=== PATIENT | male | born 1940 | race Caucasian/White ===

== ENCOUNTER 2018-02-10 20:11 | Emergency (ER) | payer OTHER ==
[2018-02-10 20:18] VITALS: BP 162/81
--- NOTE | 2018-02-10 21:08 | CONSULT ---
Consult Consult: Mr. Robles was not formally seen by me. I was shown his ecg which I read as NSR, No Acute Changes. I was informed that he wanted to leave since his ecg was nl. I spoke briefly with him and his . He was nontoxic in appearance and in no obvious distress. He reported chest pain and I recommended that he stay for a W/U as I could not make an educated opinion about his condition without further evaluation. I explained what the process was likely to entail. He elected to leave without being seen. I assured him that he was welcome to return at any time.
== END 2018-02-10 21:10 | disposition left against medical advice (07) ==
LOC: ED 20:11
DX: R07.89 Other chest pain (principal); Z53.21 Procedure and treatment not carried out due to patient leaving prior to being seen by health care provider
CPT/HCPCS: 93005; 99282

== ENCOUNTER 2018-02-14 17:32 | Inpatient (IN) | payer MEDICARE, OTHER ==
[2018-02-14] MEDS ORDERED: Aspirin 81 mg CHEW TAB* 81 MG TAB.CHEW PO ONE (17:47)
--- OUTSIDE RECORDS SUMMARY | 2018-02-14 18:12 | XMS REPORT | Continuity of Care Document ---
:1940 External Reference #:[id number] Author Name Bryan Tierney D.O. Address [address] [place] [id number] Care Team Providers Name Role Phone HCP given Primary Care Physician Unavailable Payers Type Date Identification Numbers Payment Provider Subscriber Policy Number: [id number] [employer] Reggie Robles PayID: [id number] [address] [place] [address] Policy Number: [id number] [facility] Reggie Robles PayID: [id number] [address] [place] [address] Advance Directives Description No Information Available Problems Description No Information Family History Description No Information Available Social History Type Date Description Comments Sex Unknown Marital Status Tobacco Use Start: Unknown End: Former Cigarette Smoker Quit smoking 30 years Unknown ago Allergies, Adverse Reactions, Alerts Description No Known Drug Allergies Medications Medication Date Status Form Strength Qnty SIG Indications Ordering Provider Betamethasone 02/11/ Active Ointment 0.1% Radha Whitt 2018 Raji Houser MD Aveeno 1% 02/11/ Active Unknown Hydrocrtisone 2018 Anti-Itch Cream Gold Tran 02/11/ Active 2x/day Unknown Eczema 2018 Relief-2% Colloidal Oatmeal Gold Tran 02/11/ Active Lotion daily Unknown Ultimate 2018 Healing Ibuprofen 02/08/ Active 200mg 1-2 tabs Unknown 2017 daily hs Tamsulosin HCL 02/08/ Active Capsules 0.4mg 1 by mouth Unknown 2017 every day hs Finasteride 02/08/ Active Tablets 5mg 1 by mouth Unknown 2017 every day hs Atorvastatin 02/08/ Active Tablets 20mg 90tabs 1 tablets by Kelsy Calcium 2017 mouth daily shelby Adams.O. prevention of heart attack and stroke at bedtime Fluocinonide 02/08/ Hx Cream 0.05% prn Unknown Emulsified Base 2017 - 2017 Clobetasol 02/08/ Hx apply to Unknown 2017 - legs 02/09/ arms/hands 2016 prn Hydroxyzine HCL Tablets 25mg prn for Unknown 2017 - itching 2017 Triamcinolone 02/08/ Hx Cream 0.1% prn to Unknown Acetonide 2017 - affected 02/13/ areas as 2018 needed for eczema Eucerine Hx apply body Unknown 2017 - lotion daily 2017 Dove Saop 02/08/ Hx for Unknown 2017 - showering 2017 Clobetasol 02/08/ Hx Cream 0.05% apply to Unknown Propionate 2017 - affected prn 2018 Immunizations CPT Code Status Date Vaccine Lot # [id number] Given 02/09/2017 Influenza Virus Vaccine, Quadrivalent, Split, [id number] Preservative Free [id number] Given 02/09/2017 Prevnar 13 [id number] Vital Signs Date Vital Result Comment 02/14/2018 4:17pm BP Systolic 144 mmHg BP Diastolic 70 mmHg Weight 203.00 lb 07/10/2017 1:36pm BP Systolic 120 mmHg BP Diastolic 70 mmHg Height 67.5 inches 5'7.50" Weight 209.00 lb BMI (Body Mass Index) 32.2 kg/m2 02/09/2017 1:10pm BP Systolic 138 mmHg BP Diastolic 70 mmHg Height 68.5 inches 5'8.50" with shoes Weight 211.00 lb with shoes BMI (Body Mass Index) 31.6 kg/m2 Results Test Date Facility Test Result H/L Range Note Laboratory test 02/05/2018 [facility] PSA Screening 9.094 ng/mL High 0-4.0 1 finding [phone] Laboratory test 01/16/2017 [facility] PSA Screening 5.509 ng/mL High 0-4.0 2 finding [phone] 1 Serum levels of PSA measured using the [employer] [employer] DXI Hybritech immunoassay should not be interpreted as absolute evidence of the presence or absence of disease. The PSA value should be used in conjunction with other pertinent clinical diagnostic procedures. The values obtained with different assay methods or kits cannot be used interchangeably. 2 Serum levels of PSA measured using the [employer] [place] DXI Hybritech immunoassay should not be interpreted as absolute evidence of the presence or absence of disease. The PSA value should be used in conjunction with other pertinent clinical diagnostic procedures. The values obtained with different assay methods or kits cannot be used interchangeably. Procedures Date Code Description Status 02/14/2018 39853 Electrocardiogram Complete Completed 12/15/2014 [id number] Colonoscopy Completed Encounters Type Date Location Provider Dx Diagnosis Office Visit 02/09/2017 Main Office Bryan Tierney, N40.0 Benign prostatic 12:55p D.O. hyperplasia without lower urinry tract symp F52.21 Male erectile disorder E78.00 Pure hypercholesterolemia, unspecified Z23 Encounter for immunization Z41.8 [facility] 02[facility]14/2018 - Bryan Tierney D.Rashida.R07.89 Other chest painComments:Called [facility] spoke with Saima and gave report of EKG changes and history of patient leaving on Monday. ASA 325mg was given as Reggie left the office.Follow up:Go to ER now for further evaluation of chest pain with changing EKG.R94.31 Abnormal electrocardiogram [ECG] [EKG]
--- OUTSIDE RECORDS SUMMARY | 2018-02-14 18:12 | XMS REPORT | Continuity of Care Document ---
:1940 External Reference #:[id number] Author Name Bell Cooper Care Team Providers Name Role Phone HCP given Primary Care Physician Unavailable Payers Type Date Identification Numbers Payment Provider Subscriber Policy Number: [id number] [employer] Reggie Robles PayID: [id number] [address] [place] [address] Policy Number: [id number] [facility] Reggie Robles PayID: [id number] [address] [place] [address] Advance Directives Description No Information Available Problems [...] Active Tablets 20mg 90tabs 1 tablets by Kelsy, Calcium 2017 mouth daily Bryan, for D.O. prevention of heart attack and stroke at bedtime Fluocinonide 02/08/ Hx Cream 0.05% prn Unknown Emulsified Base 2016 - 2017 Clobetasol 02/08/ Hx apply to [...] for Unknown 2017 - showering 2017 Clobetasol Hx Cream 0.05% apply to Unknown Propionate 2017 - affected 02/13/ areas prn 2018 Immunizations CPT Code Status Date Vaccine Lot # [id number] Given 02/09/2017 Influenza Virus Vaccine, Quadrivalent, Split, [id number] Preservative Free [id number] Given 02/09/2017 Prevnar 13 [id number] Vital Signs Date Vital Result Comment 02/14/2018 [...] Result H/L Range Note Laboratory test 02/05/2018 [facility] PSA Screening 9.094 ng/mL High 0-4.0 1 finding [phone] Laboratory test 01/16/2017 [facility] PSA Screening 5.509 ng/mL High 0-4.0 2 finding [phone] 1 Serum levels of PSA measured using the MyActivityPal DXI Hybritech immunoassay should not be interpreted as absolute evidence of the presence or absence of disease. The PSA value should be used in conjunction with other pertinent clinical diagnostic procedures. The values obtained with different assay methods or kits cannot be used interchangeably. 2 Serum levels of PSA measured using the [place] Med[employer] DXI Hybritech immunoassay should not be interpreted as absolute evidence of the presence or absence of disease. The PSA value should be used in conjunction with other pertinent clinical diagnostic procedures. The values obtained with different assay methods or kits cannot be used interchangeably. Procedures Date Code Description Status 02/14/2018 23923 Electrocardiogram Complete Completed 12/15/2014 [id number] Colonoscopy Completed Encounters Type Date Location Provider Dx Diagnosis Office Visit 02/14/2018 Main Office Bryan Tierney D.O. R07.89 Other chest pain 3:45p R94.31 Abnormal electrocardiogram [ECG] [EKG] Office Visit 02/09/2017 12:55p Main Office Bryan Tierney, N40.0 Benign prostatic D.O. hyperplasia without lower urinry tract symp F52.21 Male erectile disorder E78.00 Pure hypercholesterolemia, unspecified Z23 Encounter for immunization Z41.8 Encntr for oth proc for purpose oth [facility] Plan of Treatment 02/14/2018 - Bryan Tierney D.O.R07.89 Other chest painComments:Called [facility] spoke with Saima and gave report of EKG changes and history of patient leaving on Monday. ASA 325mg was given as Reggie left the office.Follow up:Go to ER now for further evaluation of chest pain with changing EKG.R94.31 Abnormal electrocardiogram [ECG] [EKG]
[2018-02-14 18:32] LABS: EGFR Non-African American 87.2 (>60)
[2018-02-14 18:41] LABS: Hematocrit 36 % (42-52); Hemoglobin 11.6 g/dl (14.0-18.0); Mean Corpuscular HGB Conc 32 g/dl (31-36); Mean Corpuscular Hemoglobin 26 pg (27-31); Mean Corpuscular Volume 81 fL (80-94); Mean Platelet Volume 8.6 fL (7.4-10.4); Platelet Count 240 10^3/ul (150-450); Red Blood Count 4.51 10^6/ul (4.00-5.40); Red Cell Distribution Width 15 % (10.5-15); White Blood Count 6.6 10^3/ul (3.5-10.8)
[2018-02-14 18:42] LABS: ABS Basophils 0 10^3/ul (0-0.2); ABS Eosinophils 0.1 10^3/ul (0-0.6); ABS Lymphocytes 0.9 10^3/ul (1.0-4.8); ABS Monocytes 0.6 10^3/ul (0-0.8); ABS Nucleated RBC 0 10^3/ul; Eosinophil % 1.1 %; Lymphocyte % 14.4 %; Nucleated Red Blood Cells % 0
--- NOTE | 2018-02-14 19:14 | ED ---
HPI Chest Pain - HPI Summary HPI Summary: A 77 y/o male accompanied by his presents to the ED c/o chest pain. In the ED room, the patient has a pulse of 69 BPM, O2 saturation of 99%, and blood pressure of 177/86. As per triage, "chets pains, tightness, left arm pain some SOB, dizziness". According to the patient, he had a appointment with his MD earlier today and was told to come here. An EKG was taken at his appointment this afternoon with Dr. Tierney and was advised to come to [facility]. He noted that the chest pain started last Monday (02/10/2018). He came to the ED that night around 2100 but it was packed. An EKG was taken in the waiting room and it was said that everything looked fine so he chose to leave and not have a full workup. The rest of the weekend, he experienced the pain. He further noted that he currently does not have the same pain as he did previously, it is to a milder extent, however, his pain settled down by Monday but he still is in discomfort and pain. Additional symptoms include weakness, fatigue, dizziness, but denies edema or SOB. He noted that he feels "wiped out" when he is walking from his house to his mailbox. No PMHx of heart issues. FHx of SD (father at 57 y/o). SHx of no smoking or ETOH. Patient is on several medications. Patient has a biopsy of his prostate on Monday morning. Patient has back issues as per and has been now bothering his stomach because of the Ibuprofen. - History of Current Complaint Chief Complaint: EDChestPainROMI Time Seen by Provider: 02/14/18 17:39 Hx Obtained From: Patient Onset/Duration: Started Days Ago, Still Present Timing: Constant Initial Severity: Mild Current Severity: Mild Pain Intensity: 2 Pain Scale Used: 0-10 Numeric Chest Pain Radiates: Yes Chest Pain Radiates To:: Arm Aggravating Factor(s): Nothing Alleviating Factor(s): Nothing Associated Signs and Symptoms: Positive: Chest Pain, Weakness, Dizziness. Negative: Shortness of Breath, Fever - Allergy/Home Medications Allergies/Adverse Reactions: Allergies Allergy/AdvReac Type Severity Reaction Status Date / Time No Known Allergies Allergy Verified 02/10/18 20:20 PMH/Surg Hx/FS Hx/Imm Hx Endocrine/Hematology History: Denies: Hx Diabetes Cardiovascular History: Denies: Hx Hypertension Sensory History: Reports: Hx Contacts or Glasses - READING GLASSES Denies: Hx Hearing Aid Opthamlomology History: Reports: Hx Contacts or Glasses - READING GLASSES - Surgical History Surgery Procedure, Year, and Place: LUMBAR FUSION 1999 [facility]. BILAT CATARACT 2010 [facility] Hx Anesthesia Reactions: No Infectious Disease History: No Infectious Disease History: Denies: Traveled Outside the [place] in Last 30 Days - Family History Known Family History: Positive: Other - SD (father at 57 y/o) - Social History Alcohol Use: None Substance Use Type: Reports: None Smoking Status (MU): Never Smoked Tobacco Review of Systems Positive: Fatigue. Negative: Fever Positive: Chest Pain Negative: Shortness Of Breath Negative: Edema Neurological: Other - POSITIVE: Dizziness Positive: Weakness All Other Systems Reviewed And Are Negative: Yes Physical Exam - Summary Physical Exam Summary: Appearance: Well-appearing, Well-nourished, lying in bed comfortably Skin: Warm, dry, no obvious rash Eyes: sclera anicteric, no conjunctival pallor ENT: mucous membranes moist, pharynx appears normal Neck: Supple, nontender Respiratory: Clear to auscultation, no signs of respiratory distress Cardiovascular: Normal S1, S2. No murmurs. Normal distal pulses in tibial and radial bilaterally. Abdomen: Soft, nontender, normal active bowel sounds present Musculoskeletal: Normal, Strength/ROM Intact Neurological: A&Ox3, awake and alert, mentation is normal, speech is fluent and appropriate Psychiatric: affect is normal, does not appear anxious or depressed Triage Information Reviewed: Yes Vital Signs On Initial Exam: Initial Vitals Temp Pulse Resp BP Pulse Ox 97.9 F 74 10 177/86 99 02/14/18 17:37 02/14/18 17:37 02/14/18 17:37 02/14/18 17:37 02/14/18 17:37 Vital Signs Reviewed: Yes Diagnostics - Vital Signs Vital Signs Temp Pulse Resp BP Pulse Ox 02/14/18 17:37 97.9 F 74 10 177/86 99 - Laboratory Lab Results: Lab Results 02/14/18 02/14/18 02/14/18 Range/Units 17:55 17:55 17:55 WBC 6.6 (3.5-10.8) 10^3/ul RBC 4.51 (4.00-5.40) 10^6/ul Hgb 11.6 L (14.0-18.0) g/dl Hct 36 L (42-52) % MCV 81 (80-94) fL MCH 26 L (27-31) pg MCHC 32 (31-36) g/dl RDW 15 (10.5-15) % Plt Count 240 (150-450) 10^3/ul MPV 8.6 (7.4-10.4) fL Neut % (Auto) 75.5 % Lymph % (Auto) 14.4 % Fannin % (Auto) 8.4 % Eos % (Auto) 1.1 % Baso % (Auto) 0.6 % Absolute Neuts (auto) 5.0 (1.5-7.7) 10^3/ul Absolute Lymphs (auto) 0.9 L (1.0-4.8) 10^3/ul Absolute Monos (auto) 0.6 (0-0.8) 10^3/ul Absolute Eos (auto) 0.1 (0-0.6) 10^3/ul Absolute Basos (auto) 0 (0-0.2) 10^3/ul Absolute Nucleated RBC 0 10^3/ul Nucleated RBC % 0 D-Dimer, Quantitative 352 H (Less Than 230) ng/mL Sodium 141 (135-145) mmol/L Potassium 4.4 (3.5-5.0) mmol/L Chloride 108 (101-111) mmol/L Carbon Dioxide 29 (22-32) mmol/L Anion Gap 4 (2-11) mmol/L BUN 21 (6-24) mg/dL Creatinine 0.85 (0.67-1.17) mg/dL Est GFR ( Amer) 105.5 (>60) Est GFR (Non-Af Amer) 87.2 (>60) BUN/Creatinine Ratio 24.7 H (8-20) Glucose 118 H (70-100) mg/dL Calcium 9.7 (8.6-10.3) mg/dL Total Bilirubin 0.40 (0.2-1.0) mg/dL AST 17 (13-39) U/L ALT 13 (7-52) U/L Alkaline Phosphatase 100 (34-104) U/L Troponin I 0.06 H* (<0.04) ng/mL Total Protein 7.4 (6.4-8.9) g/dL Albumin 4.0 (3.2-5.2) g/dL Globulin 3.4 (2-4) g/dL Albumin/Globulin Ratio 1.2 (1-3) Result Diagrams: 02/16/18 07:52 02/17/18 06:06 Lab Statement: Any lab studies that have been ordered have been reviewed, and results considered in the medical decision making process. - Radiology CXR Radiology Interpretation Completed By: ED Physician - No acute disease. Pending official report. - EKG 1738 Cardiac Rate: NL - 62 BPM EKG Rhythm: Sinus Rhythm Summary of EKG Findings: NSR at 62 BPM, P waves, QRS complex, and T waves are within normal limits, T waves and intervals are normal, no ischemic changes. This is a normal EKG Chest Pain Course/Dx - Course Course Of Treatment: A 77 y/o male accompanied by his presents to the ED c/ o chest pain. In the ED room, the patient has a pulse of 69 BPM, O2 saturation of 99%, and blood pressure of 177/86. According to the patient, he had a appointment with his MD earlier today and was told to come here. An EKG was taken at his appointment this afternoon with Dr. Tierney and was advised to come to [facility]. He noted that the chest pain started last Monday (02/10/2018) . He came to the ED that night around 2100 but it was packed. An EKG was taken in the waiting room and it was said that everything looked fine so he chose to leave and not have a full workup. The rest of the weekend, he experienced the pain. He further noted that he currently does not have the same pain as he did previously, it is to a milder extent, however, his pain settled down by Monday but he still is in discomfort and pain. Additional symptoms include weakness, fatigue, dizziness, but denies edema or SOB. He noted that he feels "wiped out" when he is walking from his house to his mailbox. Physical examination was unremarkable. A CXR revealed no acute disease. An EKG revealed NSR at 62 BPM, P waves, QRS complex, and T waves are within normal limits, T waves and intervals are normal, no ischemic changes. This is a normal EKG. Hematology was done. Labs significant for high D-dimer (352), high glucose (118), and high troponin ( 0.06). In the ED course, the patient received Tylenol, Aspirin, Maalox, Lipitor , Proscar, Heparin, Zofran and Flomax. Patient care was discussed with hospitalist, Dr. Jacquelyn Noble, who accepts patient for admission. Patient will be admitted with a diagnosis of chest pain. Patient is agreeable with this plan. - Diagnoses Provider Diagnoses: Chest pain - Provider Notifications Discussed Care Of Patient With: Jacquelyn Noble Time Discussed With Above Provider: 19:30 Instructed by Provider To: Other - Accepts patient for admission. Discharge - Sign-Out/Discharge Documenting (check all that apply): Patient Departure - ADMIT, Sign-Out Patient - RODO Signing out patient TO: Jacquelyn Noble Receiving patient FROM: Omer Solano - Discharge Plan Condition: Stable Disposition: ADMITTED TO [facility] - Billing Disposition and Condition Condition: STABLE Disposition: Admitted to [facility] - Attestation Statements Document Initiated by Carole: Yes Documenting Scribe: Randy Victor Provider For Whom Rayna is Documenting (Include Credential): Omer Solano MD Scribe Attestation: Randy Razo, scribed for Omer Solano MD on 02/18/18 at 1228. Scribe Documentation Reviewed: Yes Provider Attestation: The documentation as recorded by the Randy harvey accurately reflects the service I personally performed and the decisions made by me, Omer Solano MD Status of Scribe Document: Viewed
[2018-02-14] MEDS ORDERED: Al Hydrox/Mg Hydrox/Simet LIQ* 30 ML UDC PO PRN (19:53)
[2018-02-14] MEDS ORDERED: Acetaminophen TAB* 325 MG PO PRN (19:53)
[2018-02-14] MEDS ORDERED: Ondansetron INJ* 2 MG/ML VIAL IV PRN (19:53)
[2018-02-14] MEDS ORDERED: Atorvastatin* 20 MG TAB PO SCH (21:00)
[2018-02-14] MEDS: Finasteride TAB* 5 MG PO SCH (21:45)
[2018-02-14] MEDS: Tamsulosin CAP* 0.4 MG PO SCH (21:45)
[2018-02-14] MEDS: Heparin VIAL(*) 5000 UNITS/ML VIAL (FIVE THOUSAND) SUBCUT SCH (21:45)
--- NOTE | 2018-02-15 04:21 | HP ---
CC: Bryan Tierney DO * HISTORY AND PHYSICAL: DATE OF ADMISSION: 02/14/18 TIME OF EVALUATION: 1999. PRIMARY CARE PHYSICIAN: Bryan Tierney DO CHIEF COMPLAINT: Chest pain. HISTORY OF PRESENT ILLNESS: This is a 77-year-old male with past medical history of hyperlipidemia who presented to the emergency room from his primary care's office for concern for chest pain. The patient states on 02/10/18, he was out and about doing his usual activities when he developed substernal chest pain radiating down his left arm. He came to the emergency room and it was very busy. They did an initial EKG. He was told it was normal. He felt better about that and left against medical advice. He called his primary care physician to set up an appointment on 02/12/18 and he was able to get in this afternoon and saw Dr. Tierney, who did an EKG, concerned for changes, gave him aspirin and sent him to the emergency room. The patient states since his episode on 02/10/18, he has had more minor subtle chest pain off and on, substernal, nonradiating. He does have some chest pain today. No associated nausea or diaphoresis. He denies any increase in exertional activity. No increase in indigestion or burping. He states for the past 4 to 5 weeks, he has had some abdominal discomfort and changes in his bowels, but that has since improved. He has cut back on his ibuprofen intake and fluid intake. He denies any changes in his weight. No medication changes. He has never had a stress test. He is usually pretty active. His just took their RV out and has been traveling back in November and the states he is pretty vigorous with hiking and does not get chest pain during those episodes. In the emergency room, the patient had labs, imaging. He was given 324 of aspirin and referred to the hospitalist service for further evaluation. The patient states that his chest pain is minor at this point. PAST MEDICAL HISTORY: 1. Hyperlipidemia. 2. BPH. The patient is scheduled to have a prostate biopsy on 02/20/18. 3. Chronic rash, followed by Dermatology. MEDICATIONS: 1. Atorvastatin 20 mg p.o. daily. 2. Finasteride 5 mg p.o. daily. 3. Tamsulosin 0.4 mg p.o. daily. 4. An ointment that he uses for his chronic rash. ALLERGIES: No known drug allergies. FAMILY HISTORY: Mother at age 95 from colon cancer. Father at age 57 from an [place]. SOCIAL HISTORY: The patient lives at home with his , who is his health care proxy. He is independent of his ADLs. No history of smoking, alcohol, or illicit drug use. 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 Code status is full code. REVIEW OF SYSTEMS: A 14-point review of systems as mentioned in the HPI, otherwise negative. PHYSICAL EXAMINATION GENERAL: In no acute distress. Resting comfortably with his at the bedside. VITAL SIGNS: Temp 97.9, pulse 74, respiratory rate 10, oxygen saturation 99% on room air, blood pressure 177/86. HEENT: Head normocephalic. Pupils are equal and reactive and anicteric. Oropharynx: Mucous membranes are moist. NECK: Supple. No lymphadenopathy. RESPIRATORY: Clear to auscultation. No wheezes, rhonchi, or rales. CARDIAC: Regular rate and rhythm. Systolic murmur, more pronounced on the left sternal base. ABDOMEN: Soft, nontender, nondistended. EXTREMITIES: No clubbing, cyanosis, or edema. +1 DP. NEUROLOGIC: Alert and oriented x3. No gross focal neurologic deficits. LABORATORY DATA: White count 6.6, hemoglobin 11.6, hematocrit 36, platelets 240, INR is 352. Sodium 141, potassium 4.4, chloride 108, BUN 21, creatinine 0.85, and troponin 0.06. RADIOGRAPHIC DATA: EKG shows sinus rhythm with no significant changes from his EKG on 02/10/18. Chest x-ray, wet read: No significant findings. ASSESSMENT: This is a 77-year-old male with a past medical history of hyperlipidemia who presents to the emergency room with a several-day history of chest pain, found to have a mildly elevated troponin. Chest pain. Assessment: He has a mildly elevated troponin. He does not have significant cardiac factors. He is relatively active and does not get chest pain with exertion. It is unreasonable to rule him out for acute coronary syndrome. I am not seeing the EKG from his primary care's office where there were noted changes, that is not in his chart currently. Plan: We will continue to trend his troponin. Continue on a baby aspirin. Check his lipid panel and order an exercise stress test. We will keep him n.p.o. after midnight in case he cannot tolerate the exercise stress test, though he is relatively confident that he can. We will also order an echo in the setting of his murmur. He has a minimally elevated D-dimer. I suspect this is nonspecific in the setting of his age and comorbidities. I have a very low suspicion that he has a pulmonary embolism based on his presentation, but getting the echo in the setting of his murmur, they can assess for any right heart abnormalities. We will check a lipid panel. Continue his atorvastatin. CHRONIC MEDICAL PROBLEMS: 1. Continue his BPH meds. 2. Hyperlipidemia. As mentioned, check a lipid panel and continue his atorvastatin. 3. FEN. Regular diet, n.p.o. after midnight. 4. DVT prophylaxis. The patient scores a high risk. We will place him on heparin subcutaneous. 5. Code status. Full code. PATIENT TIME: Greater than 45 minutes spent doing the history and physical, more than half the time spent in direct patient contact. [id number]/[facility] #: [id number] JOSE
[2018-02-15] MEDS: Heparin VIAL(*) 5000 UNITS/ML VIAL (FIVE THOUSAND) SUBCUT SCH (06:09)
[2018-02-15 06:45] LABS: ABS Basophils 0 10^3/ul (0-0.2); ABS Eosinophils 0.1 10^3/ul (0-0.6); ABS Lymphocytes 0.7 10^3/ul (1.0-4.8); ABS Monocytes 0.6 10^3/ul (0-0.8); ABS Neutrophils 4.5 10^3/ul (1.5-7.7); ABS Nucleated RBC 0 10^3/ul; Hematocrit 34 % (42-52); Mean Corpuscular HGB Conc 33 g/dl (31-36); Mean Corpuscular Hemoglobin 26 pg (27-31); Mean Corpuscular Volume 80 fL (80-94); Mean Platelet Volume 8.5 fL (7.4-10.4); Nucleated Red Blood Cells % 0.1; Platelet Count 212 10^3/ul (150-450); Red Blood Count 4.21 10^6/ul (4.00-5.40); Red Cell Distribution Width 15 % (10.5-15); White Blood Count 5.9 10^3/ul (3.5-10.8)
[2018-02-15 07:03] LABS: EGFR Non-African American 94.9 (>60)
[2018-02-15] MEDS ORDERED: Metoprolol Tartrate TAB* 25 MG ONE (10:04)
--- NOTE | 2018-02-15 10:27 | ECHO ---
Patient: ANSLEY POLLARD [facility] Rec#: [id number] : 1940 Date: 02/15/2018 Age: 77y Height: 175 cm / 68.9 in Weight: 89.4 kg / 197.0 lbs Sex: M BSA: 2.05 Room#: [facility] Admit Date#: 02/14/2018 Type: Inpatient Referring: Gwen Valenzuela Reading: Sommer Boucher MD Coin Machine Collector: Tricia PeraltaARIANA CC: Kelsy CORONEL,Bryan Transthoracic Echocardiogram Indication: Chest pain BP: 127/68 HR: 55 Rhythm: Bradycardia Findings History: HLD Technical Comments: The study quality is good. Completed at 0830. Left Ventricle: The left ventricular chamber size is normal. Mild concentric left ventricular hypertrophy is observed. Basal interventricular septum shows moderate thickening. Left ventricular systolic function is at the lower limits of normal. The estimated ejection fraction is 50-55%. with mid-basal inferior wall hypokinesis. There is septal flattening of the interventricular septum consistent with right ventricular volume or pressure overload. Abnormal left ventricular diastolic function is observed. Abnormal left ventricular diastolic filling is observed, consistent with impaired relaxation. Left Atrium: The left atrium is mildly dilated. Right Ventricle: Moderator Band present. The right ventricle is moderately dilated. The right ventricular global systolic function is low normal. Right Atrium: The right atrium is mild to moderately dilated. Aortic Valve: The aortic valve is trileaflet. The aortic valve leaflets are mildly thickened. There is a trace of aortic regurgitation. There is no evidence of aortic stenosis. Mitral Valve: The mitral valve leaflets are mildly thickened. There is a trace of mitral regurgitation. There is no evidence of mitral stenosis. Tricuspid Valve: The tricuspid valve leaflets are normal. There is a physiologic tricuspid regurgitation. Unable to estimate the right ventricular systolic pressure. There is no tricuspid stenosis. Pulmonic Valve: The pulmonic valve appears normal. There is mild pulmonic regurgitation. There is no pulmonic stenosis. Pericardium: There is no significant pericardial effusion. A pericardial fat pad is visualized. Aorta: There is mild dilatation of the ascending aorta. There is no dilatation of the aortic arch. There is mild dilatation of the aortic root. Pulmonary Artery: The main pulmonary artery appears normal. Venous: The inferior vena cava appears normal in size. There is a greater than 50% respiratory change in the inferior vena cava dimension. Summary: There was not any prior study for comparison. Conclusions The left ventricular chamber size is normal. Mild concentric left ventricular hypertrophy is observed. The left atrium is mildly dilated. The estimated ejection fraction is 50-55%. with mid-basal inferior wall hypokinesis. There is a trace of aortic regurgitation. There is a trace of mitral regurgitation. The tricuspid valve leaflets are normal. There is mild pulmonic regurgitation. There is mild dilatation of the ascending aorta. Measurements Name Value Normal Range RVIDd (AP) 2D 4.11 cm (0.9 - 2.6) RVDdMajor (2D) 6.1 cm (2.2 - 4.4) RAd ISD 4CH 5.9 cm (3.4 - 4.9) RA (A4C)W 5.2 cm (2.9 - 4.6) IVSd (2D) 1.5 cm (0.6 - 1) LVPWd (2D) 1.3 cm (0.6 - 1) LVIDd (2D) 5 cm (3.6 - 5.4) LVIDs (2D) 3.5 cm - LV FS (2D) 30 % (25 - 45) Aortic Annulus 2.3 cm (1.4 - 2.6) Ao root diameter (2D) 3.7 cm (2.1 - 3.5) Ascending Ao 3.9 cm (2.1 - 3.4) Aortic arch 1.9 cm (1.8 - 3.4) LA dimension (AP) 2D 4 cm (2.3 - 3.8) LAd ISD 4CH 5.7 cm (2.9 - 5.3) LA ISD 4CH W 5.4 cm (2.5 - 4.5) Name Value Normal Range LA ESV BP (A/L) index 31 ml/m2 - Name Value Normal Range MV E-wave Vmax 0.67 m/sec - MV deceleration time 165 msec - MV A-wave Vmax 0.77 m/sec - MV E:A ratio 0.9 ratio - LV septal e' Vmax 0.06 m/sec - LV lateral e' Vmax 0.07 m/sec - LV E:e' septal ratio 11.2 ratio - LV E:e' lateral ratio 9.6 ratio - Name Value Normal Range AV Vmax 1.1 m/sec - AV VTI 24 cm - AV peak gradient 4 mmHg - AV mean gradient 2 mmHg - LVOT Vmax 1 m/sec - LVOT VTI 22 cm - LVOT peak gradient 4 mmHg - LVOT mean gradient 2 mmHg - XENIA Vmax 0.6 m/sec - Name Value Normal Range IVC diameter 1.7 cm - Name Value Normal Range PV Vmax 1.2 m/sec - PV peak gradient 6 mmHg - MD end-diastolic Vmax 1 m/sec - PA end-diastolic pressur4 mmHg -
[2018-02-15] MEDS: Finasteride TAB* 5 MG PO SCH (11:08)
[2018-02-15] MEDS: Aspirin 81 mg CHEW TAB* 81 MG TAB.CHEW PO SCH ×2 (11:08→16:45)
[2018-02-15] MEDS ORDERED: Heparin DRIP 25,000 UNITS(*) 25,000 UNITS/500 ML BAG IV SCH (11:30)
[2018-02-15] MEDS ORDERED: Heparin VIAL(*) 5000 UNITS/ML VIAL (FIVE THOUSAND) IV SCH (12:00)
[2018-02-15] MEDS ORDERED: Atorvastatin* 80 MG TAB PO ONE (12:08)
[2018-02-15] MEDS ORDERED: Atorvastatin* 80 MG TAB ONE (12:12)
[2018-02-15 12:14] LABS: ABS Basophils 0 10^3/ul (0-0.2); ABS Eosinophils 0.1 10^3/ul (0-0.6); ABS Lymphocytes 0.6 10^3/ul (1.0-4.8); ABS Monocytes 0.5 10^3/ul (0-0.8); ABS Neutrophils 4.6 10^3/ul (1.5-7.7); ABS Nucleated RBC 0 10^3/ul; Eosinophil % 1.1 %; Hematocrit 35 % (42-52); Hemoglobin 11.1 g/dl (14.0-18.0); Lymphocyte % 10.9 %; Mean Corpuscular HGB Conc 32 g/dl (31-36); Mean Corpuscular Hemoglobin 26 pg (27-31); Mean Corpuscular Volume 81 fL (80-94); Mean Platelet Volume 8.3 fL (7.4-10.4); Nucleated Red Blood Cells % 0; Platelet Count 239 10^3/ul (150-450); Red Blood Count 4.28 10^6/ul (4.00-5.40); Red Cell Distribution Width 15 % (10.5-15); White Blood Count 5.8 10^3/ul (3.5-10.8)
[2018-02-15 12:22] LABS: EGFR Non-African American 88.4 (>60)
--- NOTE | 2018-02-15 17:20 | PN ---
Subjective Date of Service: 02/15/18 Interval History: Mr. Robles feels well today. He does not have any chest pain at this point. Offers no complaints. is at bedside. He reports that he has taken ibuprofen 600mg daily for approx 10 years. He stopped about a month ago after developing some lower abd pain which was worse with eating. He also cut back on caffeine during that time. His abd pain resolved about 1 week ago. His last colonoscopy was a few years ago and he reported no abnormal results. He denies SOB, N/V/D, dizziness. Family History: Unchanged from Admission Social History: Unchanged from Admission Past Medical History: Unchanged from Admission Objective Active Medications: Acetaminophen (Tylenol Tab*) 650 mg PO Q4H PRN FEVER/PAIN Al Hydrox/Mg Hydrox/Simethicone (Maalox Plus*) 30 ml PO Q6H PRN INDIGESTION Aspirin (Aspirin 81 Mg Chew Tab*) 81 mg PO DAILY [facility] Atorvastatin Calcium (Lipitor*) 80 mg PO 2100 ROSA Ferrous Sulfate (Ferrous Sulfate Tab*) 325 mg PO BID ROSA Finasteride (Proscar Tab*) 5 mg PO DAILY [facility] Heparin Sodium (Porcine) (Heparin Vial(*)) 0 units IV .PER PROTOCOL [facility] Heparin Sodium/Dextrose (Heparin Drip 25,000 Units(*)) 25,000 units in 500 mls @ 0 mls/hr IV PER RATE [facility]; Protocol Sodium Chloride (Ns 0.9% 1000 Ml*) 1,000 mls @ 100 mls/hr IV .per rate [facility] Influenza Virus Vaccine (Fluarix *Quad* *) 0.5 ml IM .ONCE ONE Omeprazole (Prilosec Cap*) 40 mg PO BID ROSA Ondansetron HCl (Zofran Inj*) 4 mg IV Q4H PRN NAUSEA/VOMITING Tamsulosin HCl (Flomax Cap*) 0.4 mg PO BEDTIME [facility] Vital Signs - 8 hr 02/15/18 02/15/18 11:19 15:07 Temperature 98.7 F 97.5 F Pulse Rate 50 55 Respiratory 20 16 Rate Blood Pressure 118/67 142/72 (mmHg) O2 Sat by Pulse 96 98 Oximetry Oxygen Devices in Use Now: None Appearance: Elderly male sitting in bed in NAD Eyes: No Scleral Icterus Ears/Nose/Mouth/Throat: Mucous Membranes Moist Neck: NL Appearance and Movements; NL JVP, Trachea Midline Respiratory: Symmetrical Chest Expansion and Respiratory Effort, Clear to Auscultation Cardiovascular: NL Sounds; No Murmurs; No JVD, RRR Abdominal: NL Sounds; No Tenderness; No Distention Extremities: No Edema Skin: No Rash or Ulcers Neurological: Alert and Oriented x 3, NL Sensation Lines/Tubes/Other Access: Clean, Dry and Intact Peripheral IV Nutrition: Taking PO's Result Diagrams: 02/15/18 11:53 02/15/18 11:53 Assess/Plan/Problems-Billing Assessment: Mr. Robles is a 77 yo with PMH of HLD and BPH who presented to the ED with c/o chest pain and was found to have elevated troponins and questionable EKG changes. - Patient Problems (1) Chest pain Current Visit: Yes Status: Acute Code(s): R07.9 - CHEST PAIN, UNSPECIFIED SNOMED Code(s): 14119965 Comment: - Present on admission, now resolved - Trops peaked at 0.07 - Appreciate cardiology consult; there was concern for ST elevation during exercise stress test and Dr. Raya was consulted - Plan for cath in the AM with Dorota as long as H&H remains stable - Continue heparin drip and aspirin (2) Anemia, iron deficiency Current Visit: Yes Status: Acute Code(s): D50.9 - IRON DEFICIENCY ANEMIA, UNSPECIFIED SNOMED Code(s): 65341295 Comment: - Low iron, % saturation, and ferritin - Because of recent NSAID use, there was concern for ucler; it is possible that there was/is a peptic ulcer, though if it was bleeding, it appears to have stopped at this point - Likely that there may have been some degree of slow bleed at some point leading to iron deficiency; suspect that H&H will improve w/ iron supplementation - H&H stable; will recheck at 0500 and will proceed with cath if stable - Start ferrous sulfate BID (3) Peptic ulcer disease Current Visit: Yes Status: Acute Code(s): K27.9 - PEPTIC ULC, SITE UNSP, UNSP AC OR CHR, W/O HEMOR OR PERF SNOMED Code(s): 96038690 Comment: - Spoke with GI who advised that based on history, it is likely that there is a peptic ulcer, but cannot proceed with endoscopy d/t elevated trops; per GI, if there was a peptic ulcer found on endoscopy, treatment would be stopping NSAIDs (stopped 1 month ago) and starting PPI BID - At this point, there are no contraindications to placing a drug eluting stent as there is no active bleed - Start omeprazole BID (4) Hyperlipidemia Current Visit: Yes Status: Acute Code(s): E78.5 - HYPERLIPIDEMIA, UNSPECIFIED SNOMED Code(s): 91809281 Comment: - Continue atorvastatin (5) BPH (benign prostatic hyperplasia) Current Visit: Yes Status: Acute Code(s): N40.0 - BENIGN PROSTATIC HYPERPLASIA WITHOUT LOWER URINRY TRACT SYMP SNOMED Code(s): 487855378 Comment: - Continue finasteride and tamsulosin (6) DVT prophylaxis Current Visit: Yes Status: Acute Code(s): YXZ0111 - SNOMED Code(s): 055215570 Comment: - Heparin gtt (7) Full code status Current Visit: Yes Status: Acute Code(s): Z78.9 - OTHER SPECIFIED HEALTH STATUS SNOMED Code(s): 610777141 Status and Disposition: Inpatient for cardiac cath tomorrow. Anticipate d/c home when medically stable. Attending: Dolores Astudillo
--- NOTE | 2018-02-15 19:13 | CONS ---
CC: Hospitalist Service; Dr. Boucher; Dr. Tierney * CARDIOLOGY CONSULT: DATE OF CONSULT: 02/15/18 PRIMARY CARE PHYSICIAN: Dr. Tierney HISTORY OF PRESENT ILLNESS: The patient is a 77-year-old male patient with a history of hyperlipidemia, on medical treatment, originally presented to the emergency room on Monday, today is for chest pain. Apparently, he had the 12-lead EKG and some troponin and was assured and was sent home. He did return yesterday for recurrent episode of chest pain at rest that lasted for about 1 hour. He had abnormal troponin, indeterminate, mildly abnormal level initially, his troponins were 0.06 and then 0.07, then 0.05 and then 0.05 ; because of this he was hospitalized. His EKG showed him to be in normal sinus rhythm with no acute ST-T changes. There is nonspecific T abnormality in lead V1 and lead III, someone can question a Q-wave in lead III and aVF. The patient is chest pain free and he gives no history of myocardial infarction, no diabetes, no hypertension. No history of congestive heart failure. He does have family history of coronary artery disease and his father had myocardial infarction at age 57 according to the patient. He gives no nausea, no vomiting. He had some arm pain, but no dizziness, no syncope, no fever, no chills, no swelling in the lower extremities, no hematochezia is appreciated. Since hospitalization, he has been chest pain free. PAST MEDICAL HISTORY: Includes history of hyperlipidemia, benign prostatic hypertrophy and chronic rash, followed up with Dermatology. MEDICATIONS: His medications as an outpatient include: 1. Lipitor 20 mg daily. 2. Finasteride 5 mg daily. His medications as an inpatient include: 1. Tylenol 650 mg p.o. q.4 hours. 2. Aspirin 81 mg daily. 3. Lipitor 20 mg daily. 4. Proscar 5 mg daily. 5. Heparin subcu 5000 units. 6. Flomax 0.4 mg p.o. at bedtime. His other medical history includes he gives no history of smoking. No significant alcohol drinking. ALLERGIES: No known drug allergies. FAMILY HISTORY: Father had IL at age 57. REVIEW OF SYSTEMS: Review of all other systems essentially is negative. PHYSICAL EXAM: He is awake, alert, and oriented. He is not in any acute distress. His vitals, blood pressure 122/70; pulse 70, he is in sinus rhythm. Head and Neck Exam: Normocephalic, atraumatic head. Ears, nose, and throat essentially benign. Neck is supple. JVP is not elevated. No carotid bruits. No masses in the neck are appreciated. Chest: Clear to auscultation. No rales. No wheeze. No added sounds appreciated. Heart: Normal. Regular S1, S2. No added sounds. No gallops, no rubs. No significant murmurs. Abdomen: Benign, soft. Positive bowel sounds. Extremities: No edema, no cyanosis, and no clubbing. Skin exam is normal. Psych: Normal affect and mood. BUSINESS OFFICE DIRECTOR: No focal deficit is appreciated. DIAGNOSTIC STUDIES/LAB DATA: His EKGs as described. His labs showed the following: His white blood cell is 5.9, hemoglobin 11, hematocrit 34, and platelets 212. His sodium 143, potassium 3.7, chloride 110, total CO2 is 26, BUN 20, creatinine 0.79. His troponins as described. His triglyceride 77, cholesterol 179, LDL 133, HDL 31. His echocardiogram today showed him to have EF 50% to 55%. No significant valvular disease. There is [id number] inferior wall hypokinesis. His chest x -ray is reported to have no active cardiopulmonary disease. The patient did exercise regular stress test today. Poor work load 4 minutes but he was able to achieve more than 100% maximum predicted heart rate. He had no chest pain, but he had probably [address] elevations in leads II, III, and aVF with some ST depression and aVL and returned to baseline after 5 minutes in recovery. He had no arrhythmias. IMPRESSION: The patient is a 77-year-old male with: 1. Concerning symptoms of chest pain, abnormal troponin, and abnormal regular exercise stress test for ischemic coronary artery disease as described. 2. Hyperlipidemia. 3. Strong family history of coronary artery disease. 4. Mild anemia. 5. Borderline mild hypokalemia. PLAN: The patient is currently on telemetry. I discussed him with Dr. Astudillo from the hospitalist service. I agree with aspirin, heparin, beta-musa, statins. I discussed him with Dr. Raya from the interventional cardiology services and we will evaluate with recommendations to proceed with cardiac catheterization to evaluate his coronary anatomy based on his symptoms, abnormal troponin, abnormal regular exercise stress test and borderline left ventricular systolic function with wall motion abnormality inferiorly. Any further recommendations will be based on the results of his cardiac cath. I have discussed this with the patient. He is willing to proceed. TIME SPENT: More than half of at least 65 plus minutes was in the education and counseling mode with [id number] explaining the above and answering all his questions. [id number]/CPS #: [id number] JOSE
[2018-02-15] MEDS: Omeprazole CAP* 20 MG PO SCH (20:27)
[2018-02-15] MEDS: Ferrous Sulfate TAB* 325 MG PO SCH (20:27)
[2018-02-15] MEDS: Tamsulosin CAP* 0.4 MG PO SCH (20:27)
[2018-02-16] MEDS: NS 0.9% 1000 ML* 1,000 ML IV SCH ×2 (05:37→15:08)
[2018-02-16] MEDS: Finasteride TAB* 5 MG PO SCH (08:05)
[2018-02-16] MEDS: Aspirin 81 mg CHEW TAB* 81 MG TAB.CHEW PO SCH (08:05)
[2018-02-16] MEDS: Ferrous Sulfate TAB* 325 MG PO SCH ×2 (08:05→21:08)
[2018-02-16] MEDS: Omeprazole CAP* 20 MG PO SCH (08:05)
[2018-02-16 08:17] LABS: ABS Basophils 0 10^3/ul (0-0.2); ABS Eosinophils 0.1 10^3/ul (0-0.6); ABS Lymphocytes 0.8 10^3/ul (1.0-4.8); ABS Monocytes 0.6 10^3/ul (0-0.8); ABS Neutrophils 5.3 10^3/ul (1.5-7.7); ABS Nucleated RBC 0 10^3/ul; Eosinophil % 1.2 %; Hematocrit 33 % (42-52); Hemoglobin 10.8 g/dl (14.0-18.0); Lymphocyte % 11.3 %; Mean Corpuscular HGB Conc 32 g/dl (31-36); Mean Corpuscular Hemoglobin 26 pg (27-31); Mean Corpuscular Volume 80 fL (80-94); Mean Platelet Volume 8.4 fL (7.4-10.4); Nucleated Red Blood Cells % 0; Platelet Count 220 10^3/ul (150-450); Red Blood Count 4.15 10^6/ul (4.00-5.40); Red Cell Distribution Width 15 % (10.5-15); White Blood Count 6.8 10^3/ul (3.5-10.8)
[2018-02-16] MEDS ORDERED: Heparin 2 UNITS/ML IVPREMIX* 3,000 ML IV ONE (08:32)
[2018-02-16] MEDS ORDERED: fentaNYL* 50 MCG/ML 2 ML VIAL (100 MCG VIAL) ONE (08:32)
[2018-02-16] MEDS ORDERED: Lidocaine 1% INJ* 10 MG/ML 30 ML SDV ONE (08:32)
[2018-02-16] MEDS ORDERED: Iohexol 350 (CONTRAST) 200 ML MDV IV ONE ×2 (08:32)
[2018-02-16] MEDS ORDERED: Midazolam* 1 MG/ML 10 ML VIAL (10 MG) ONE (08:32)
[2018-02-16] MEDS ORDERED: Heparin(*) 1000 UNIT/ML 10 ML VIAL CATH LAB IV ONE (09:22)
[2018-02-16] MEDS ORDERED: Ticagrelor* 90 MG TAB PO ONE (09:36)
[2018-02-16] MEDS ORDERED: Bivalirudin(*) 250 MG VIAL ONE (09:36)
[2018-02-16] MEDS ORDERED: nitroGLYCERIN DRIP* 25,000 MCG/250 ML BTL ONE (09:48)
[2018-02-16] MEDS ORDERED: Nitroglycerin TAB 0.4 MG* 0.4 MG TAB SL PRN (10:20)
[2018-02-16] MEDS ORDERED: amLODIPine TAB* 5 MG ONE (10:43)
[2018-02-16] MEDS ORDERED: Metoprolol Tartrate TAB* 25 MG PO SCH (11:00)
[2018-02-16] MEDS ORDERED: amLODIPine TAB* 5 MG PO ONE (13:00)
[2018-02-16] MEDS ORDERED: amLODIPine TAB* 5 MG PO SCH (13:00)
[2018-02-16] MEDS ORDERED: nitroGLYCERIN DRIP* 25,000 MCG/250 ML BTL IV SCH (13:00)
[2018-02-16] MEDS: Metoprolol Tartrate TAB* 25 MG PO SCH ×2 (14:12→21:09)
--- NOTE | 2018-02-16 15:58 | CATH ---
CC: Dr. Boucher, [facility]; Bryan Tierney DO CARDIAC CATHETERIZATION AND INTERVENTIONAL REPORT: DATE OF PROCEDURE: 02/16/18 INDICATION FOR THE PROCEDURE: The patient presents with acute coronary syndrome with abnormal troponin with abnormal stress test raising question of the inferior wall ischemia. PROCEDURE: Coronary arteriography, left heart catheterization, left ventriculography, guidewire probing of total occlusion of mid posterior descending artery. CONSENT: The patient was interviewed and examined on the floor of the hospital where the risks and benefits were explained, he understood them and wished to proceed. APPROACH: Decision was made to attempt a right femoral artery approach given his dilated ascending aorta and chest x-ray suggesting some unwinding of the aorta raising question of difficult approach from the radial artery. PRECARDIAC CATHETERIZATION LABORATORY RESULTS: Hemoglobin and hematocrit was 10.8 and 33 with a platelet count of 220,000. The BUN and creatinine were 20 and 0.8. Sodium 143, potassium 3.7, chloride 110, bicarb 26. MEDICATIONS GIVEN IN THE SOILED LINEN DISTRIBUTOR: 1. Brilinta 180 mg bolus. 2. Angiomax bolus and Angiomax drip started in light of a subtherapeutic ACT from heparin drip. 3. IV nitroglycerin for essential hypertension. EQUIPMENT: 1. Right femoral artery sheath initially a 6.5 Niuean Merit sheath exchanged for also a 6-Niuean 45 cm long Reed sheath. 2. Diagnostic catheters utilized were a 5-Niuean FL4 initial catheter exchanged for a 5-Niuean FL5 curve for the left coronary artery and a 5-Niuean FR4 curve for the right coronary artery. 3. Diagnostic guidewire utilized was exchange length J-tip 260 cm guidewire. 4. The left heart catheterization catheter was a 5-Niuean 145 degree angle pigtail catheter. 5. Guide catheter utilized was a 6-Niuean ART4 curve guide catheter. 6. Interventional wire was a 190 length All Star wire. 7. Balloon utilized for extra supportive wire - a 2.0 x 12 mm long Emerge balloon. 8. Sheath exchanged for the long Reed sheath - was a 7-Niuean 11 cm VALE sheath. PROCEDURE IN DETAIL: The patient was brought to the cardiovascular laboratory where a formal time-out was performed. The patient was prepped and draped in a sterile fashion. The right femoral artery area was anesthetized with 1% lidocaine. The right femoral artery was cannulated with an anterior wall only stick and initially, a Merit 6.5 curve Niuean sheath was placed. Decision was made to upsize this to a 6-Niuean Reed 45 cm long sheath for better ability to torque catheters. A diagnostic coronary arteriography was performed ultimately for the left coronary artery utilizing a 5-Niuean 5 curve FL catheter and for the right a FR4 curve 5- Niuean catheter. An angled pigtail catheter was advanced to the ascending aorta. Central aortic pressure was recorded. It was passed across the aortic valve and the left ventricle, left ventricular pressure was recorded. Left ventriculography was performed utilizing a total of 24 cc of Omnipaque dye at a rate of 12 cc/sec. The catheter was then pulled back across the aortic valve to recheck gradient. Following this, decision was made to try to probe the totally occluded mid posterior descending artery, a branch of the right coronary artery. The patient's ACT was checked and found to be subtherapeutic. An Angiomax bolus and drip were started. Guiding views were obtained utilizing the 6-Niuean ART4 curve guide catheter. The All Star wire was advanced down the right coronary artery into the PDA and gently probed. The Emerge 2.0 x12 mm long balloon was advanced to give extra support to the wire. The wire did pass into what appeared to be the distal portion. No balloon dilatation was made given the small caliber of the vessel, but the artery was assessed after the balloon itself was advanced into the distal portion and then pulled back. The artery was then assessed as well with the wire removed. At the end of the case, the catheters were removed. The long sheath was exchanged for a 7-Niuean VALE short sheath 11 cm and it was sutured in place with good hemostasis. This will be pulled later on after the Angiomax has worn off in the ICU. The total contrast used was 175 cc of Omnipaque dye. The radiation exposure included 13.9 minutes of fluoro time. The air kerma radiation was 2975 milligray. The DAP radiation was 18,072 microgray per sq. m. RESULTS: HEMODYNAMIC DATA: LEFT HEART CATHETERIZATION: Central aortic pressure recorded at 159/66 with a mean of 103. Left ventricular pressure 154 over left ventricular end diastolic pressure of 12. LEFT VENTRICULOGRAPHY: Performed in the LAYTON projection revealed symmetrical contraction in the left ventricle with a focal area of the distal inferior wall with moderate hypokinesis. The overall EF was in the normal range with 50% to 55%. There was no mitral regurgitation noted. CORONARY ARTERIOGRAPHY: A. Left coronary artery: 1. Left main - widely patent. 2. Left anterior descending artery - the left anterior descending artery had mild luminal reductions in its proximal to mid portion, the degree of luminal reduction approximately 35%. It traversed to the apical region. Of note, collateralization was seen from mid to distal septal perforators to the right-sided posterior descending artery. The caliber of the vessel appeared to be small. The first diagonal branch initially bifurcated into a small lateral branch which had an 80% narrowing. It then continued to bifurcate again with mild 30% to 35% narrowing. The caliber of the vessel was small in nature. The mid diagonal branch had mild 30% to 35% ostial narrowing. 3. Circumflex artery - a nondominant vessel supplying a high bifurcating first obtuse marginal branch, which had an 85% to 90% stenosis seen in its proximal segment with mild aneurysmal dilatation just past the significant obstruction. The caliber of the vessel in general appeared to be barely 1.7 to 2.0 mm. The circumflex continued to supply a thin second obtuse marginal branch and then a moderate size bifurcating obtuse marginal branch. There was only mild disease throughout the rest of the vessel of approximately 25% to 30% in the proximal portion of the bifurcating third obtuse marginal branch. There was a question of mild aneurysmal dilatation of the mid portion of the circumflex. B. Right coronary artery - a dominant vessel which appeared to have mild diffuse aneurysmal dilatation throughout its proximal to mid portion. It supplied a posterior descending artery and a very thin first, second, and third posterior left ventricular branches ending in a slightly larger last posterior left ventricular branch which bifurcated. The posterior descending artery was found to be totally occluded in its mid portion. Again, the caliber of the vessel within the initial proximal to mid portion of the PDA was barely 2 mm at the beginning but tapering somewhat suggesting the presence of diffuse disease. INTERVENTIONAL PROBING OF TOTALLY OCCLUDED MID POSTERIOR DESCENDING ARTERY: Attempted to probe the artery, we were able to pass the wire into what appeared to be the distal portion of the PDA; however, there was such diffuse disease identified throughout this vessel in general that given the small caliber of it, medical management will be pursued in the attempt to dilate the septal perforated collaterals from the LAD and provide a better perfusion to the mid to distal inferior wall. OVERALL ASSESSMENT: Significant coronary artery disease involving a small caliber first obtuse marginal superior branch as well as a totally occluded mid posterior descending artery which appear to be getting collaterals from the septal terrazzo polisher helper. At this point in time, aggressive medical management will be pursued. If on good dose medical management, he has significant symptoms ,or he fails the stress test again with significant symptoms or ischemia (should be performed with nuclear so as to look at zones of ischemia), consideration could be made towards stenting the proximal portion of the first obtuse marginal branch. I am not convinced the posterior descending artery is of a size that would warrant a more aggressive approach. We will start him on amlodipine as well as beta-musa therapy and I recommend increasing dosages to the patient tolerance and blood pressure tolerance in order to get him on an acceptable amount of medical management. High dose statin therapy would be reasonable and consideration for clopidogrel daily might be reasonable. All of this was discussed with Dr. Boucher who will be following the patient while in the hospital and after discharge. [id number]/[facility] #: [id number] JOSE
--- NOTE | 2018-02-16 18:18 | PN ---
Subjective Date of Service: 02/16/18 Interval History: Mr. Robles reported some fleeting discomfort in his left chest wall this afternoon. He denies other complaint including sob, nausea, or abdominal pain. Family History: Unchanged from Admission Social History: Unchanged from Admission Past Medical History: Unchanged from Admission Objective Active Medications: Acetaminophen (Tylenol Tab*) 650 mg PO Q4H PRN Al Hydrox/Mg Hydrox/Simethicone (Maalox Plus*) 30 ml PO Q6H PRN Amlodipine Besylate (Norvasc Tab*) 2.5 mg PO DAILY ROSA Aspirin (Aspirin 81 Mg Chew Tab*) 81 mg PO DAILY ROSA Atorvastatin Calcium (Lipitor*) 80 mg PO 2100 ROSA Ferrous Sulfate (Ferrous Sulfate Tab*) 325 mg PO BID ROSA Finasteride (Proscar Tab*) 5 mg PO DAILY ROSA Nitroglycerin/Dextrose (Nitroglycerin Drip*) 25,000 mcg in 250 mls @ 6 mls/hr IV .(Initial Rate) ROSA; Protocol Metoprolol Tartrate (Lopressor Tab*) 12.5 mg PO Q12HR ROSA Nitroglycerin (Nitroglycerin Tab 0.4 Mg*) 0.4 mg SL Q5M PRN Omeprazole (Prilosec Cap*) 40 mg PO BID ROSA Ondansetron HCl (Zofran Inj*) 4 mg IV Q4H PRN Tamsulosin HCl (Flomax Cap*) 0.4 mg PO BEDTIME ROSA Vital Signs: Temp Pulse Resp BP Pulse Ox 98.5 F 58 20 134/59 96 02/16/18 10:51 02/16/18 17:31 02/16/18 17:31 02/16/18 17:31 02/16/18 17:31 Oxygen Devices in Use Now: None Appearance: Male lying in bed in NAD Eyes: No Scleral Icterus Ears/Nose/Mouth/Throat: Mucous Membranes Moist Neck: Trachea Midline Respiratory: Symmetrical Chest Expansion and Respiratory Effort, Clear to Auscultation Cardiovascular: NL Sounds; No Murmurs; No JVD, No Edema Abdominal: NL Sounds; No Tenderness; No Distention Extremities: No Edema Skin: No Rash or Ulcers Neurological: Alert and Oriented x 3, NL Muscle Strength and Tone Nutrition: Taking PO's Result Diagrams: 02/16/18 07:52 02/17/18 06:06 Additional Lab and Data: . Microbiology and Other Data: . Assess/Plan/Problems-Billing Assessment: Mr. Robles is a 77 yo with PMH of HLD and BPH who presented to the ED with c/o chest pain and was found to have elevated troponins and questionable EKG changes with cardiac cath showing diffuse coronary artery disease with plan for medical management. - Patient Problems (1) Chest pain Comment: - NSTEMI - S/p cardiac cath with finding of diffuse CAD not amenable to stenting, plan for medical management. - Continue metoprolol, plavix, aspirin, atorvastatin. (2) Hypertension Comment: - Continue atentolol and metoprolol, started this admission (3) Hyperlipidemia Code(s): E78.5 - HYPERLIPIDEMIA, UNSPECIFIED SNOMED Code(s): 83344011 Comment: - Continue atorvastatin (4) Peptic ulcer disease Code(s): K27.9 - PEPTIC ULC, SITE UNSP, UNSP AC OR CHR, W/O HEMOR OR PERF SNOMED Code(s): 53356353 Comment: - Spoke with GI who advised that based on history, it is likely that there is a peptic ulcer, but cannot proceed with endoscopy d/t elevated trops; per GI, if there was a peptic ulcer found on endoscopy, treatment would be stopping NSAIDs (stopped 1 month ago) and starting PPI BID - At this point, there are no contraindications to placing a drug eluting stent as there is no active bleed - Start omeprazole BID (5) Anemia, iron deficiency Comment: - Low iron, % saturation, and ferritin - Because of recent NSAID use, there was concern for ucler; it is possible that there was/is a peptic ulcer, though if it was bleeding, it appears to have stopped at this point. Likely that there may have been some degree of slow bleed at some point leading to iron deficiency; suspect that H&H will improve w / iron supplementation - H&H stable - Start ferrous sulfate BID (6) BPH (benign prostatic hyperplasia) Comment: - Continue finasteride and tamsulosin (7) DVT prophylaxis Comment: - SCDs (8) Full code status Comment: Status and Disposition: Inpatient. Anticipate discharge to home when medically stable.
[2018-02-16] MEDS ORDERED: Calcium Carbonate CHEW TAB* 500 MG (TUMS) PO PRN (18:19)
[2018-02-16] MEDS ORDERED: Atorvastatin* 80 MG TAB PO SCH (21:00)
[2018-02-16] MEDS: Tamsulosin CAP* 0.4 MG PO SCH (21:08)
[2018-02-16] MEDS: CMCS: Pantoprazole TAB (NF) 40 MG TAB PO SCH (21:08)
[2018-02-17 06:44] LABS: EGFR Non-African American 99.2 (>60)
--- NOTE | 2018-02-17 07:38 | PN ---
Subjective Date of Service: 02/17/18 Interval History: Mr. Paredes denies complaint and is eager for discharge to home today. He specifically denies chest pain or SOB. Family History: Unchanged from Admission Social History: Unchanged from Admission Past Medical History: Unchanged from Admission Objective Active Medications: Acetaminophen (Tylenol Tab*) 650 mg PO Q4H PRN Al Hydrox/Mg Hydrox/Simethicone (Maalox Plus*) 30 ml PO Q6H PRN Amlodipine Besylate (Norvasc Tab*) 5 mg PO DAILY ROSA Aspirin (Aspirin 81 Mg Chew Tab*) 81 mg PO DAILY ROSA Atorvastatin Calcium (Lipitor*) 80 mg PO 2100 ROSA Calcium Carbonate (Tums*) 500 mg PO Q4H PRN Clopidogrel Bisulfate (Plavix Tab*) 75 mg PO DAILY ROSA Ferrous Sulfate (Ferrous Sulfate Tab*) 325 mg PO BID ROSA Finasteride (Proscar Tab*) 5 mg PO DAILY [facility] Metoprolol Tartrate (Lopressor Tab*) 12.5 mg PO Q12HR ROSA Nitroglycerin (Nitroglycerin Tab 0.4 Mg*) 0.4 mg SL Q5M PRN Ondansetron HCl (Zofran Inj*) 4 mg IV Q4H PRN Pantoprazole Sodium (Protonix Tab (Nf)) 40 mg PO BID ROSA Tamsulosin HCl (Flomax Cap*) 0.4 mg PO BEDTIME [facility] Vital Signs: Temp Pulse Resp BP Pulse Ox 98.3 F 74 16 144/66 97 02/17/18 07:30 02/17/18 07:30 02/17/18 07:30 02/17/18 07:30 02/17/18 07:30 Oxygen Devices in Use Now: None Appearance: Male lying in bed in NAD Eyes: No Scleral Icterus Ears/Nose/Mouth/Throat: Mucous Membranes Moist Neck: Trachea Midline Respiratory: Symmetrical Chest Expansion and Respiratory Effort, Clear to Auscultation Cardiovascular: NL Sounds; No Murmurs; No JVD, No Edema Abdominal: NL Sounds; No Tenderness; No Distention Extremities: No Edema Skin: No Rash or Ulcers Neurological: Alert and Oriented x 3, NL Muscle Strength and Tone Nutrition: Taking PO's Result Diagrams: 02/16/18 07:52 02/17/18 06:06 Additional Lab and Data: . Microbiology and Other Data: . Assess/Plan/Problems-Billing Assessment: Mr. Robles is a 77 yo with PMH of HLD and BPH who presented to the ED with c/o chest pain and was found to have elevated troponins and questionable EKG changes with cardiac cath showing diffuse coronary artery disease with plan for medical management. - Patient Problems (1) Chest pain Comment: - NSTEMI - S/p cardiac cath with finding of diffuse CAD not amenable to stenting, plan for medical management. - Continue metoprolol, plavix, aspirin, atorvastatin. (2) Hypertension Comment: - SBP 130-140s - Increase atenolol and continue metoprolol, started this admission (3) Peptic ulcer disease Comment: - Spoke with GI who advised that based on history, it is likely that there is a peptic ulcer, but cannot proceed with endoscopy d/t elevated trops; per GI, if there was a peptic ulcer found on endoscopy, treatment would be stopping NSAIDs (stopped 1 month ago) and starting PPI BID - At this point, there are no contraindications to placing a drug eluting stent as there is no active bleed - Start omeprazole BID (4) Hyperlipidemia Comment: - Continue atorvastatin (5) Anemia, iron deficiency Comment: - Low iron, % saturation, and ferritin - Because of recent NSAID use, there was concern for ucler; it is possible that there was/is a peptic ulcer, though if it was bleeding, it appears to have stopped at this point. Likely that there may have been some degree of slow bleed at some point leading to iron deficiency; suspect that H&H will improve w / iron supplementation - H&H stable - Start ferrous sulfate BID (6) BPH (benign prostatic hyperplasia) Comment: - Continue finasteride and tamsulosin (7) DVT prophylaxis Comment: - SCDs (8) Full code status Current Visit: Yes Status: Acute Code(s): Z78.9 - OTHER SPECIFIED HEALTH STATUS SNOMED Code(s): 089581103 Comment: Status and Disposition: Inpatient. Discharge to home with close follow up with cardiology.
[2018-02-17] MEDS: Ferrous Sulfate TAB* 325 MG PO SCH (07:39)
[2018-02-17] MEDS: Finasteride TAB* 5 MG PO SCH (07:39)
[2018-02-17] MEDS: Metoprolol Tartrate TAB* 25 MG PO SCH (07:39)
[2018-02-17] MEDS: Aspirin 81 mg CHEW TAB* 81 MG TAB.CHEW PO SCH (07:40)
[2018-02-17] MEDS ORDERED: amLODIPine TAB* 5 MG PO SCH (09:00)
[2018-02-17] MEDS ORDERED: Clopidogrel TAB* 75 MG PO SCH (09:00)
[2018-02-17] MEDS: CMCS: Pantoprazole TAB (NF) 40 MG TAB PO SCH (09:44)
[2018-02-17 11:40] VITALS: BP 125/63
--- NOTE | 2018-02-17 16:10 | DS ---
CC: Dr. Tierney * [facility] MEDICINE DISCHARGE SUMMARY: DATE OF ADMISSION: 02/14/18 DATE OF DISCHARGE: 02/17/18 PRIMARY CARE PHYSICIAN: Dr. Tierney. ATTENDING PHYSICIAN: Dr. Guanako Dockery * (dictation provided by Jacquelyn Noble NP). PRIMARY DIAGNOSES: 1. Non-ST elevation myocardial infarction. 2. Severe coronary artery disease, status post cardiac catheterization with plan for medical management. 3. Anemia suspected secondary to long-term ibuprofen use and possible gastritis /gastric ulcer. SECONDARY DIAGNOSES: 1. History of hyperlipidemia. 2. Benign prostatic hypertrophy scheduled to have a prostate biopsy on . 3. 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 MEDICATIONS OUTPATIENT: As as follows: 1. Tamsulosin 0.4 mg p.o. q.p.m. 2. Finasteride 5 mg p.o. q.p.m. 3. Amlodipine 5 mg p.o. daily. 4. Pantoprazole 40 mg p.o. b.i.d. 5. Nitroglycerin 0.4 mg sublingual q.5 minutes p.r.n. 6. Metoprolol tartrate 12.5 mg p.o. q.12 hours. 7. Ferrous sulfate 325 mg p.o. b.i.d. 8. Clopidogrel 75 mg p.o. daily. 9. Atorvastatin 80 mg p.o. daily. 10. Aspirin 81 mg p.o. daily. HOSPITAL COURSE: Mr. Robles is a 77-year-old male, who presented to the hospital on 02/14/18 with concern for chest pain. Please see dictated H and P from Gwen Valenzuela DO, for complete details. In brief, the patient came in from his primary care's office with the concern of chest pain. He stated it developed on 02/10/18 and was substernal and radiated into his left arm. He did come to the emergency room on 02/10/18, but it was busy and ffter he had a normal EKG, he decided to little against medical advice. On 02/12/18, the patient saw Dr. Tierney outpatient, who did an EKG and was concerned that there were changes noted there and instructed him to take aspirin and go back to the emergency room. In the emergency room, the patient had a mildly elevated troponin to 0.06. EKG showed sinus rhythm and no significant EKG changes since 02/10/18. On arrival, he also had a new anemia with a Hgb of 11. The following day, Mr. Robles did have a transthoracic echocardiogram, which showed ejection fraction of 50% to 55% with septal flattening of the interventricular septum consistent with right ventricular volume or pressure overload. There was mid basal inferior wall hypokinesis. No significant valvular abnormalities. The patient's troponins were repeated and they peaked at 0.07. The patient was seen in consultation by Dr. Boucher on 02/15/18. I refer to his note for complete details, but in brief, he noted that the patient' s exercise stress test was grossly abnormal with concern for ischemic coronary artery disease. This was discussed with Dr. Raya with plan for cardiac catheterization. Further investigation was done regarding the patient's anemia. He had a hemoglobin of 11.6 on arrival. His last hemoglobin on 08/05/16 was 16. On further discussion with the patient, he noted that he had been taking ibuprofen at least 600 to 800 mg daily for several years. It was suspected that the anemia was secondary to this use of ibuprofen. The patient has been asked to stop ibuprofen. He had a stool occult blood, which was negative. This was reviewed with Gastroenterology, who felt that given the stability of his anemia and the lack of blood in the stool that would be reasonable to stop ibuprofen and start a proton pump inhibitor or ferrous sulfate and to proceed with the needed cardiac catheterization. Mr. Robles went on his cardiac catheterization on 02/16/[address] Raya. It showed significant coronary artery disease involving small caliber first obtuse marginal superior branch as well as totally occluded mid posterior descending artery, though it did appear to be getting collateral from the septal lighting adviser. No stent was placed. Recommendation was for aggressive medical management. Mr. Robles has been doing well since his cardiac catheterization. He denies chest pain. He has been started on metoprolol and amlodipine and with this has good of his blood pressure with systolically running 130s to 104s. He has been started on aspirin and Plavix. He has also had an increase in his atorvastatin up to full- strength dose of 80 mg daily. He will also be sent home with nitroglycerin. The patient is to follow up closely with Dr. Raya next week regarding the assessment of his femoral site and then to follow up with Dr. Boucher in the next couple of weeks. Dr. Raya recommends that a stress test in 2 weeks should be considered. DISPOSITION: Home. DIET: Low-fat, low-salt. ACTIVITY: As tolerated. The patient has been recommended to follow up with the [facility] for a healthy living per cardiac rehab and the number has been provided in his paperwork. FOLLOWUP PLAN: 1. Please follow up with Dr. Raya for follow up of your cardiac catheterization. 2. Please follow up with Dr. Boucher in the next 2 weeks. 3. Please consider follow up for stress test in 2 weeks. 4. Please consider follow up with [facility] for cardiac rehab. TIME SPENT: Approximately 75 minutes were spent in the discharge of this patient, more than half time spent with the patient at the bedside reviewing the events leading up to this hospitalization and during this hospitalization, performing the physical examination, and reviewing my plan of care. JACQUELYN NOBLE NP [id number]/CPS #: [id number] JOSE
== END 2018-02-17 12:51 | disposition home or self-care (01) | DRG 174 ==
LOC: ED 17:32 → MEDTELE 19:53 → OBSVTOIN 02-15 12:00 → ICU 02-16 10:29 → MEDTELE 02-17 07:21
PROVIDERS: ADMIT Pediatrics; ATTEND Internal Medicine
PROC: 4A023N7 Measurement of Cardiac Sampling and Pressure, Left Heart, Percutaneous Approach (ICD-10-PCS; 2018-02-16)
PROC: B2151ZZ Fluoroscopy of Left Heart using Low Osmolar Contrast (ICD-10-PCS; 2018-02-16)
PROC: 02703ZZ Dilation of Coronary Artery, One Artery, Percutaneous Approach (ICD-10-PCS; 2018-02-16)
PROC: B2111ZZ Fluoroscopy of Multiple Coronary Arteries using Low Osmolar Contrast (ICD-10-PCS; principal; 2018-02-16 07:30)
DX: I21.4 Non-ST elevation (NSTEMI) myocardial infarction (principal); E78.5 Hyperlipidemia, unspecified; N40.0 Benign prostatic hyperplasia without lower urinary tract symptoms; R21 Rash and other nonspecific skin eruption; I25.10 Atherosclerotic heart disease of native coronary artery without angina pectoris; E87.6 Hypokalemia; D50.9 Iron deficiency anemia, unspecified; D50.8 Other iron deficiency anemias; T39.315A Adverse effect of propionic acid derivatives, initial encounter; K29.70 Gastritis, unspecified, without bleeding; K27.9 Peptic ulcer, site unspecified, unspecified as acute or chronic, without hemorrhage or perforation; Z82.49 Family history of ischemic heart disease and other diseases of the circulatory system; Z80.0 Family history of malignant neoplasm of digestive organs; Z98.1 Arthrodesis status; Z98.42 Cataract extraction status, left eye; Z98.41 Cataract extraction status, right eye; Z23 Encounter for immunization; Y92.009 Unspecified place in unspecified non-institutional (private) residence as the place of occurrence of the external cause; Z79.02 Long term (current) use of antithrombotics/antiplatelets; Z79.82 Long term (current) use of aspirin
CPT/HCPCS: 36415; 71045; 80048; 80053; 80061; 82272; 82565; 82607; 82728; 83540; 83550; 84484; 84520; 85025; 85347; 85379; 85730; 87641; 90686; 93005; 93306; 93458; 99285; A9270-GY; C1725; C1769; C1887; C1894; G0378; J0583; J1644; J2250; J3010

== ENCOUNTER 2018-02-18 21:21 | Inpatient (IN) | payer OTHER, MEDICARE ==
--- NOTE | 2018-02-18 22:40 | ED ---
Abdominal Pain/Male - HPI Summary HPI Summary: Patient is a 77 y/o M presenting to ED with lower abdominal pain and inability to urinate. He was seen at [facility] yesterday for similar Sx. Patient notes that he has been able to urinate a little bit today. However, at 1600, he ate and states that since then he has not been able to urine. He also notes exacerbation of abdominal pain. Patient notes that he was supposed to have biopsy for prostate in two days. Patient is still taking Flomax but has not done so tonight. Patient is on Plavix, does not take Coumadin. Urologist is Dr. Douglas. On triage, pain is rated 9/10. Nothing is noted to aggravate/ alleviate Sx. Home medications and allergies are reviewed. - History of Current Complaint Chief Complaint: EDUrogenitalProblems Stated Complaint: ABD PAIN Time Seen by Provider: 02/18/18 22:20 Hx Obtained From: Patient Onset/Duration: Still Present, Worse Since - 1600 today Timing: Constant, Lasting Hours - 1600 today Severity Currently: Severe - 9/10 Pain Intensity: 9 Pain Scale Used: 0-10 Numeric - 9/10 Location: Other - lower Radiates: No Aggravating Factor(s): Nothing Alleviating Factor(s): Nothing Associated Signs And Symptoms: Positive: Urinary Symptoms - inability to urinate - Allergies/Home Medications Allergies/Adverse Reactions: Allergies Allergy/AdvReac Type Severity Reaction Status Date / Time No Known Allergies Allergy Verified 02/10/18 20:20 PMH/Surg Hx/FS Hx/Imm Hx Endocrine/Hematology History: Denies: Hx Diabetes Cardiovascular History: Reports: Hx Angina, Hx Hypercholesterolemia Denies: Hx Coronary Artery Disease, Hx Hypertension, Hx Myocardial Infarction , Hx Valvular Heart Disease Respiratory History: Denies: Hx Asthma, Hx Chronic Obstructive Pulmonary Disease (COPD) Sensory History: Reports: Hx Contacts or Glasses - READING GLASSES Denies: Hx Hearing Aid Opthamlomology History: Reports: Hx Contacts or Glasses - READING GLASSES - Surgical History Surgery Procedure, Year, and Place: LUMBAR FUSION 1999 [facility]. BILAT CATARACT 2010 [facility] Hx Anesthesia Reactions: No Infectious Disease History: No Infectious Disease History: Denies: Traveled Outside the [place] in Last 30 Days - Family History Known Family History: Positive: Cardiac Disease - [place] (father at 57 y/o) - Social History Alcohol Use: None Substance Use Type: Reports: None Smoking Status (MU): Never Smoked Tobacco Review of Systems Positive: Abdominal Pain Positive: other - inability to urinate All Other Systems Reviewed And Are Negative: Yes Physical Exam - Summary Physical Exam Summary: VITAL SIGNS: Reviewed. GENERAL: Patient is a well-developed and nourished male who is lying comfortable in the stretcher. Patient is not in any acute respiratory distress. Ann catheter in place, deborah hematuria is noted. HEAD AND FACE: No signs of trauma. No ecchymosis, hematomas or skull depressions. No sinus tenderness. EYES: PERRLA, EOMI x 2, No injected conjunctiva, no nystagmus. EARS: Hearing grossly intact. Ear canals and tympanic membranes are within normal limits. MOUTH: Oropharynx within normal limits. NECK: Supple, trachea is midline, no adenopathy, no JVD, no carotid bruit, no c- spine tenderness, neck with full ROM. CHEST: Symmetric, no tenderness at palpation LUNGS: Clear to auscultation bilaterally. No wheezing or crackles. CVS: Regular rate and rhythm, S1 and S2 present, no murmurs or gallops appreciated. ABDOMEN: Soft, suprapubic tenderness. No signs of distention. No rebound no guarding, and no masses palpated. Bowel sounds are normal. EXTREMITIES: FROM in all major joints, no edema, no cyanosis or clubbing. NEURO: Alert and oriented x 3. No acute neurological deficits. Speech is normal and follows commands. SKIN: Dry and warm Triage Information Reviewed: Yes Vital Signs On Initial Exam: Initial Vitals Temp Pulse Resp BP Pulse Ox 98.4 F 86 18 107/82 97 02/18/18 21:35 02/18/18 21:35 02/18/18 21:35 02/18/18 21:35 02/18/18 21:35 Vital Signs Reviewed: Yes Diagnostics - Vital Signs Vital Signs Temp Pulse Resp BP Pulse Ox 02/18/18 21:35 98.4 F 86 18 107/82 97 - Laboratory Result Diagrams: 02/18/18 23:24 02/18/18 23:24 Lab Statement: Any lab studies that have been ordered have been reviewed, and results considered in the medical decision making process. - Radiology cxr Radiology Interpretation Completed By: ED Physician Summary of Radiographic Findings: CXR showed no acute process pending official report. Re-Evaluation - Re-Evaluation First Eval Re-Evaluation Time: 00:10 Change: Unchanged Comment: Attempted to irrigate bladder using 3-way ann, patient was still having clots, CBI was not working. Dr. Douglas to be called. Second Eval Re-Evaluation Time: 00:25 Change: Worse Comment: Patient developed fever of 102.5 F Abdominal Pain Fem Course/Dx - Course Course Of Treatment: Patient is a 77 y/o M presenting to ED with lower abdominal pain and inability to urinate. He was seen at [facility] yesterday for similar Sx. Patient notes that he has been able to urinate a little bit today. However, at 1600, he ate and states that since then he has not been able to urine. He also notes exacerbation of abdominal pain. Patient notes that he was supposed to have biopsy for prostate in two days. Patient is still taking Flomax but has not done so tonight. Patient is on Plavix, does not take Coumadin. Urologist is Dr. Douglas. On physical exam, suprapubic tenderness is noted, ann catheter in place, deborah hematuria is noted. 16 Japanese ann catheter had been placed, approximately 50 ml bloody urine returned upon placing per nurse. Attempted to irrigate but could not due to clots in ann catheter, large 3-way catheter placed. Attempted to irrigate bladder using 3- way ann, patient was still having clots, CBI was not working. Dr. Douglas to be called. Abnormal labs were WBC 11.2, Hgb 11, Hct 35, MCH 26, RDW 16, absolute neuts 9.9, absolute lymphs 0.6, INR 1.18, BUN 27, BUN/creatinine ratio 27.6, glucose 121. During ED course, patient received piperacillin sod/ tazobactam sod 3.375 gm in sodium chloride 100 mls @ 200 mls/hr IVPB ED ONCE ONE , Tylenol tab 975 PO ED ONCE ONE, and vancomycin HCL 1000 mg in sodium chloride 250 mls @ 166.667 mls/hr IVPB ED ONCE ONE. UA showed red colored urine, protein 1+, blood 3+, trace WBC, 3+ RBC. Influenza A, B were negative. CXR showed no acute process. Patient's case was discussed with Dr. Douglas at 0034 , Dr. Douglas will come to evaluate. 0104 - Dr. Douglas arrived to ED and assisted, CBI is working better now. As patient developed fever of 102.5 F, patient's case was dicussed with Dr. Worthy, Dr. Worthy accepts patient for admission. - Diagnoses Provider Diagnoses: Fever, Hematuria - Provider Notifications Discussed Care Of Patient With: Ronny Douglas Time Discussed With Above Provider: 00:34 Instructed by Provider To: Other - Patient's case was discussed with Dr. Douglas at 0034, Dr. Douglas will come to evaluate. 0104 - Dr. Douglas arrived to ED and assisted, CBI is working better now. As patient developed fever of 102.5 F, patient's case was dicussed with Dr. Worthy, Dr. Worthy accepts patient for admission. Discharge - Sign-Out/Discharge Documenting (check all that apply): Patient Departure - admit All imaging exams completed and their final reports reviewed: Yes - Discharge Plan Condition: Good Disposition: ADMITTED TO [facility] - Attestation Statements Document Initiated by Scribe: Yes Documenting Scribe: RANJEET LUO Provider For Whom Ryana is Documenting (Include Credential): MARILEE HALL MD Scribe Attestation: I, RAJNEET LUO , scribed for MARILEE HALL MD on 02/19/18 at 0453. Status of Scribe Document: Ready
[2018-02-18 23:49] LABS: ABS Basophils 0 10^3/ul (0-0.2); ABS Eosinophils 0.1 10^3/ul (0-0.6); ABS Lymphocytes 0.6 10^3/ul (1.0-4.8); ABS Monocytes 0.7 10^3/ul (0-0.8); ABS Neutrophils 9.9 10^3/ul (1.5-7.7); ABS Nucleated RBC 0 10^3/ul; Eosinophil % 0.5 %; Hematocrit 35 % (42-52); Lymphocyte % 5.4 %; Mean Corpuscular HGB Conc 32 g/dl (31-36); Mean Corpuscular Hemoglobin 26 pg (27-31); Mean Corpuscular Volume 81 fL (80-94); Mean Platelet Volume 8.6 fL (7.4-10.4); Nucleated Red Blood Cells % 0; Platelet Count 246 10^3/ul (150-450); Red Blood Count 4.29 10^6/ul (4.00-5.40); Red Cell Distribution Width 16 % (10.5-15); White Blood Count 11.2 10^3/ul (3.5-10.8)
[2018-02-18 23:58] LABS: INR 1.18 (0.77-1.02)
[2018-02-19] MEDS ORDERED: Piperacillin/Tazobac ADVAN(*) 3.375 GM in NS 0.9% 100 ML* 100 ML IVPB ONE (00:43)
[2018-02-19] MEDS ORDERED: Vancomycin(*) 1,000 MG in NS 0.9% 250 ML* 250 ML IVPB ONE (00:44)
[2018-02-19] MEDS ORDERED: Acetaminophen TAB* 325 MG PO ONE (00:50)
[2018-02-19] MEDS ORDERED: Ondansetron INJ* 2 MG/ML VIAL IV PRN (02:05)
[2018-02-19] MEDS ORDERED: Magnesium Hydroxide LIQ* 30 ML UDC PO ONE (02:09)
[2018-02-19] MEDS ORDERED: NS 0.9% 1000 ML* 1,000 ML IV ONE (02:09)
[2018-02-19] MEDS ORDERED: NS 0.9% 1000 ML* 1,000 ML IV SCH (02:15)
[2018-02-19 02:47] LABS: Urine Appearance Cloudy; Urine Blood 3+ (Negative); Urine Ketones Negative (Negative); Urine Protein 1+(30 mg/dL) (Negative); Urine Red Blood Cell 3+(>10/hpf) (Absent); Urine Specific Gravity 1.005 (1.010-1.030); Urine Urobilinogen Negative (Negative); Urine White Blood Cell Trace(0-5/hpf) (Absent)
[2018-02-19 02:48] LABS: Urine Color Red
[2018-02-19] MEDS: cefTRIAXone(*) 1 GM in NS 0.9% 50 ML* 50 ML IVPB SCH (03:51)
--- NOTE | 2018-02-19 05:55 | HP ---
CC: Dr. Tierney; Dr. Raya; Dr. Douglas * HISTORY AND PHYSICAL: DATE OF ADMISSION: 02/19/18 PRIMARY CARE PROVIDER: Dr. Tierney. ATTENDING PHYSICIAN WHILE IN THE HOSPITAL: Dr. Rose Marie Worthy * (report dictated by Lonnie Patel NP) CHIEF COMPLAINT: "Unable to pee." HISTORY OF PRESENT ILLNESS: Mr. Robles is a 77-year-old male patient, who has a history of CAD, BPH, hyperlipidemia, chronic rash, history of hypertension, he presents today. He was just here discharged on 02/17/18. He was brought in for chest pain, was taken to cardiac catheterization. He was stress tested to have an abnormal stress test. He underwent echo which showed EF of 50% to 55%. Ultimately, underwent heart catheterization, was found to have coronary artery disease, which was not intervened on. I refer you to the report for details, but essentially was treated with medical management. He was doing well. He had no more chest pressure, no shortness of breath, no orthopnea. Denied any lower extremity swelling. The biggest complaint today was around 4 o'clock, he urinated a little bit. He denied any dysuria, no frequency. He denied having any fevers or chills. No flank pain or abdominal pain, but then after urinating , he had urgency and he could not go. He was unable to urinate. He was getting uncomfortable. He was having suprapubic discomfort and pain. He was concerned. His was concerned and he came into the ER. When he presented here, his vitals were stable. However, there was a difficult time obtaining the patient's catheter. He was able to get it, he required CBI. While he was down here, he spiked a fever of 102. There was no nausea, vomiting. He had no again dysuria, but because of the fever and concern for a possible urinary source for infection, the hospitalist service was asked to evaluate for admission. PAST MEDICAL HISTORY: Significant for: 1. BPH. 2. CAD. 3. Hyperlipidemia. 4. Hypertension. 5. Chronic rash. PAST SURGICAL HISTORY: He has had: 1. Cardiac catheterization. 2. Back surgery. MEDICATIONS: Home medications include: 1. Flomax 0.4 mg daily. 2. Finasteride 5 mg daily. 3. Amlodipine 5 mg daily. 4. Protonix 40 mg p.o. b.i.d. 5. Nitro 0.4 mg sublingual q.5 minutes p.r.n. chest pain x3. 6. Metoprolol 12.5 mg p.o. every 12 hours. 7. Ferrous sulfate 325 mg p.o. b.i.d. 8. Plavix 75 mg daily. 9. Atorvastatin 80 mg daily. 10. Aspirin 81 mg daily. ALLERGIES TO MEDICATIONS: No known drug allergies. FAMILY HISTORY: His mother is a diabetic. Father had an [place]. SOCIAL HISTORY: He does not smoke. He does not drink. Surrogate decision maker is his . REVIEW OF SYSTEMS: There is documented fever here now, but none at home. Denied any significant weight change. No double vision. There is no ear discharge. He denies having any rhinorrhea. There is no sore throat. No thyroid enlargement. He denied any more chest pain. There was no orthopnea, there was no nocturnal dyspnea. He denied having any abdominal pain. There was no nausea , no vomiting. There was no dysuria, there was again hesitancy. He denied having any flank pain. No loss of consciousness. No pruritus and no skin ulcerations. Review of 14 systems completed, all others negative. PHYSICAL EXAMINATION GENERAL: At this time, Mr. Robles is a 77-year-old male patient, he is sitting in the ED stretcher. He does not appear to be in any acute distress. He appears to be well nourished and well developed. VITAL SIGNS: Blood pressure 150/84, pulse 107, respirations 18, O2 sat 94%, temperature 102.5. HEENT: Head: Atraumatic, normocephalic. Eyes: EOMs intact. Sclerae anicteric and not pale. Throat: Oral mucosa appears to be moist. No oropharyngeal erythema. NECK: Supple. LUNGS: Clear to auscultation. There were no wheezes, rales, or rhonchi. HEART: Sounds S1, S2. He had a regular rate and rhythm. No murmurs, rubs, or gallops. ABDOMEN: Soft, flat, and nontender. Bowel sounds present. No CVA tenderness. He did have some tenderness in the suprapubic area. He does have a Byers catheter in place, is draining pink urine now with CBI. EXTREMITIES: Pulses were 2+ throughout. He did have a puncture site in the right groin, which again the site appeared to be benign. There was no erythema , no discharge. No pain on palpation. Distal CSM checks were intact. NEUROLOGIC: He is awake, he is alert, he is oriented x3. His speech is clear. Tongue midline. No gross focal deficits. SKIN: Intact. DIAGNOSTIC STUDIES/LAB DATA: The labs today revealed a WBC of 11.2, RBC of 4.29, hemoglobin 11.0, hematocrit 35, and his platelet count was 246. His INR was 1.18, PTT 27.3. Sodium 143, potassium 3.6, chloride 109, bicarb 26, BUN 27 , creatinine 0.98, glucose 121, calcium 9.4. Total bili 0.4, AST 20, ALT 16, alk phos 89. Albumin 3.9. He had a chest x-ray obtained today which does not appreciate any acute infiltrates on the film. No pulmonary edema and no effusions noted. He did have an EKG previously, which showed a sinus bradycardia at a rate of 56. No ST elevations. He did have inversions in lead III. He had an echo obtained on 02/14/18. His EF was noted to 50% to 55%. Again, heart catheterization was obtained 3 days ago on 02/16/18. Impression: Significant coronary artery disease involving small caliber first obtuse marginal superior branch as well as a totally occluded mid posterior descending artery, which appears to be getting collaterals from the septal mercerizer and at that point aggressive medical management was recommended. Old medical records were reviewed. IMPRESSION AND PLAN: Mr. Robles is a 77-year-old male patient coming into the ED today with complaints of difficulty with urination, unable to urinate. He came into the ED, unfortunately there was a tough time getting his catheter. Ultimately, had Urology come in, catheter was placed with continuous bladder irrigation and having hematuria. While this was happening, he did develop fever. He will be admitted under observation status for: 1. Sepsis. Again, I suspect the etiology is urinary. I suspect that he may have had some bacteremia secondary to urinary retention and the catheter insertion. The plan will be to continue his continuous bladder irrigation. In addition to this Rocephin, culture the urine, do blood cultures, alford culture the patient. I will give him a liter of fluid wide open. I am holding off giving him the full 30 cc per kg as his blood pressure was noted to be in the 150s. We will continue to follow him. Place him on Rocephin. 2. Coronary artery disease. Continue his amlodipine, aspirin, statin, beta- musa therapy. 3. Benign prostatic hyperplasia. Continue Proscar and Flomax. 4. Hyperlipidemia. Continue statin therapy. 5. Chronic rash. Continue meds as prescribed. 6. Hypertension. Continue meds as prescribed. 7. DVT prophylaxis. Because of the hematuria, we will place him on SCDs. 8. Code status. Full code. 9. Fluids, electrolytes, and nutrition. He can have a heart-healthy diet. TIME SPENT: On the admission was 60 minutes; greater than half the time was spent [id number] with the patient obtaining my history and physical, other half of the time spent going over the plan of care with the patient and implementing plan of care. I did discuss the plan of care with my attending, Dr. Worthy; she is in agreement. LONNIE PATEL NP [id number]/[facility] #: [id number] JOSE
[2018-02-19 06:15] LABS: ABS Basophils 0 10^3/ul (0-0.2); ABS Eosinophils 0 10^3/ul (0-0.6); ABS Lymphocytes 0.8 10^3/ul (1.0-4.8); ABS Monocytes 0.7 10^3/ul (0-0.8); ABS Neutrophils 10.4 10^3/ul (1.5-7.7); ABS Nucleated RBC 0 10^3/ul; Eosinophil % 0.1 %; Hematocrit 32 % (42-52); Hemoglobin 10.5 g/dl (14.0-18.0); Lymphocyte % 6.8 %; Mean Corpuscular HGB Conc 33 g/dl (31-36); Mean Corpuscular Hemoglobin 26 pg (27-31); Mean Corpuscular Volume 81 fL (80-94); Mean Platelet Volume 8.4 fL (7.4-10.4); Nucleated Red Blood Cells % 0; Platelet Count 225 10^3/ul (150-450); Red Blood Count 4.01 10^6/ul (4.00-5.40); Red Cell Distribution Width 15 % (10.5-15)
[2018-02-19 06:39] LABS: EGFR Non-African American 82.7 (>60)
[2018-02-19] MEDS: CMCS:Pantoprazole TAB (NF) 40 MG TAB PO SCH ×2 (08:18→20:56)
[2018-02-19] MEDS: Ferrous Sulfate TAB* 325 MG PO SCH ×2 (08:18→20:56)
[2018-02-19] MEDS: Docusate CAP* 100 MG PO SCH ×2 (08:19→20:56)
[2018-02-19] MEDS: Aspirin 81 mg CHEW TAB* 81 MG TAB.CHEW PO SCH (08:19)
[2018-02-19] MEDS: Clopidogrel TAB* 75 MG PO SCH (08:19)
[2018-02-19] MEDS: Metoprolol Tartrate TAB* 25 MG PO SCH ×2 (08:19→20:56)
[2018-02-19] MEDS: amLODIPine TAB* 5 MG PO SCH (08:19)
[2018-02-19] MEDS: Acetaminophen TAB* 325 MG PO PRN (15:47)
--- NOTE | 2018-02-19 16:45 | PN ---
Subjective Date of Service: 02/19/18 Interval History: patient seen doing well. awake, no distress. still has low grade fever. CBI completed. he still have his ann. Past Medical History: Unchanged from Admission Objective Active Medications: Acetaminophen (Tylenol Tab*) 650 mg PO Q4H PRN PRN Reason: FEVER/PAIN Last Admin: 02/19/18 15:47 Dose: 650 mg Amlodipine Besylate (Norvasc Tab*) 5 mg PO DAILY [facility] Last Admin: 02/19/18 08:19 Dose: 5 mg Aspirin (Aspirin 81 Mg Chew Tab*) 81 mg PO DAILY [facility] Last Admin: 02/19/18 08:19 Dose: 81 mg Atorvastatin Calcium (Lipitor*) 80 mg PO 2100 [facility] Clopidogrel Bisulfate (Plavix Tab*) 75 mg PO DAILY [facility] Last Admin: 02/19/18 08:19 Dose: 75 mg Docusate Sodium (Colace Cap*) 100 mg PO BID [facility] Last Admin: 02/19/18 08:19 Dose: 100 mg Ferrous Sulfate (Ferrous Sulfate Tab*) 325 mg PO BID [facility] Last Admin: 02/19/18 08:18 Dose: 325 mg Finasteride (Proscar Tab*) 5 mg PO QPM [facility] Ceftriaxone Sodium 1 gm/ (Sodium Chloride) 50 mls @ 200 mls/hr IVPB Q24H [facility] Last Admin: 02/19/18 03:51 Dose: 200 mls/hr Lactated Ringer's (Lactated Ringers 1000 Ml Bag*) 1,000 mls @ 100 mls/hr IV PER RATE [facility] Last Admin: 02/19/18 15:51 Dose: 100 mls/hr Metoprolol Tartrate (Lopressor Tab*) 12.5 mg PO Q12HR [facility] Last Admin: 02/19/18 08:19 Dose: 12.5 mg Ondansetron HCl (Zofran Inj*) 4 mg IV Q6H PRN PRN Reason: NAUSEA Pantoprazole Sodium (Protonix Tab (Nf)) 40 mg PO BID [facility] Last Admin: 02/19/18 08:18 Dose: 40 mg Senna (Senokot Tab*) 2 tab PO BEDTIME [facility] Tamsulosin HCl (Flomax Cap*) 0.4 mg PO QPM [facility] Vital Signs - 8 hr 02/19/18 02/19/18 11:39 15:36 Temperature 99.2 F 100.2 F Pulse Rate 70 81 Respiratory 16 16 Rate Blood Pressure 139/54 136/52 (mmHg) O2 Sat by Pulse 97 96 Oximetry Oxygen Devices in Use Now: None Appearance: awake, alert. no distress Eyes: No Scleral Icterus Ears/Nose/Mouth/Throat: NL Teeth, Lips, Gums, Mucous Membranes Moist Neck: NL Appearance and Movements; NL JVP, Trachea Midline Respiratory: Symmetrical Chest Expansion and Respiratory Effort, Clear to Auscultation Cardiovascular: NL Sounds; No Murmurs; No JVD, RRR, No Edema Abdominal: NL Sounds; No Tenderness; No Distention Extremities: No Edema Skin: No Rash or Ulcers Neurological: Alert and Oriented x 3, NL Muscle Strength and Tone Result Diagrams: 02/19/18 05:59 02/19/18 05:59 Microbiology and Other Data: Microbiology 02/19/18 02:25 Influenza Types A,B Antigen - Final Nasopharyngeal Specimen received for Influenza A/B Molecular testing Assess/Plan/Problems-Billing Assessment: 77 y/o male admitted for Hematuria and UTI - Patient Problems (1) UTI (urinary tract infection) Current Visit: Yes Status: Acute Comment: - Follow up UC - On ceftriazone 1 gm daily - s/p CBI for hemauria (2) Hematuria Current Visit: Yes Status: Acute Code(s): R31.9 - HEMATURIA, UNSPECIFIED SNOMED Code(s): 64024621 Comment: - Follow up UC - On ceftriazone 1 gm daily - s/p CBI for hemauria (3) CAD (coronary artery disease) Current Visit: Yes Status: Acute Code(s): I25.10 - ATHSCL HEART DISEASE OF [place] CORONARY ARTERY W/O ANG PCTRS SNOMED Code(s): 81439102 Comment: continue aspirin, plavix, lipitor, amlodipine and lopressor 12.5 mg bid
[2018-02-19] MEDS: Finasteride TAB* 5 MG PO SCH (18:21)
[2018-02-19] MEDS: Tamsulosin CAP* 0.4 MG PO SCH (18:21)
[2018-02-19] MEDS: Senna TAB PO SCH (20:55)
[2018-02-19] MEDS: Atorvastatin* 80 MG TAB PO SCH (20:56)
--- NOTE | 2018-02-19 22:23 | CONS ---
EMERGENCY ROOM CONSULTATION REPORT: DATE OF CONSULT: 02/19/18 DIAGNOSIS: Clot urinary retention. PROCEDURE: 1. Irrigation of clot retention. 2. Complex placement of a coude urethral catheter. HISTORY OF PRESENT ILLNESS: I was asked by the emergency room staff to see this 77- year-old white male with a clot urinary retention. is a patient whom I have been following Mr. Robles in my office for the last 10 years because of PSA elevation and prostate enlargement. In December 2007, he underwent transrectal ultrasound and multiple prostate biopsies because of an elevated PSA of 3.8. At that time, the prostate volume was 81 cc and biopsies were all benign. In 2009, he was started on finasteride and had been maintained on tamsulosin. While on the finasteride, his PSA progressed to 9.1. He was scheduled to undergo transrectal ultrasound and prostate biopsies in my office on 02/20/18. The patient was seen by Dr. Raya last week because of chest pain and was scheduled to undergo a coronary angiogram and coronary stent placement. Dr. Ryaa wanted to have him on anticoagulation with Plavix and with aspirin and decided that the prostate biopsy has to be postponed. The patient presented to the emergency room late last night with urinary retention. He was evaluated by the emergency room physician and a Byers catheter was placed. The patient was not draining well and was having hematuria and urethral discomfort. The Byers catheter was then removed and he had a 24- [place] 3-way catheter inserted. He continued to have hematuria and the patient continued to be uncomfortable. A urgent consultation was requested. I came to see the patient in the emergency room at 1 a.m. On examination, he was lying in bed with a catheter that was draining bloody urine. His suprapubic area was moderately tender and distended. External genitalia were otherwise normal. I deflated the balloon of the Byers catheter and I advanced it inside the bladder and reinflated the balloon with 20 cc of water. There was a gush of briggs colored urine. The bladder was then irrigated with a piston syringe. Few clots were evacuated, but then the returns were light red in color and it was draining well. He was hooked up to the continuous bladder irrigation and the outflow was clear. The patient was noted at that time to have a fever of 102. This was assumed to be originating from his urinary system. The hospitalist was consulted and the plan was to admit him for observation and IV antibiotics and for continuous bladder irrigation to make sure the hematuria does not recur. I saw the patient again in the morning. The urine was crystal clear. The 3- way Byers catheter was removed and I inserted a 16-[place] coude catheter and the balloon inflated with 10 cc of water. Irrigation was clear. I observed him and his urine has remained clear for the rest of the day. IMPRESSION: Urinary retention with an episode of hematuria, most likely secondary to a traumatic insertion of the Byers into the prostatic urethra while the patient on anticoagulation. PLAN: The patient will be discharged home when his fever resolves and remains afebrile, and he will go home with the Byers catheter. I will follow him in the office. I will decide on the management depending upon the status of his coronary artery disease. [id number]/[facility] #: [id number] MTDD
[2018-02-20] MEDS: cefTRIAXone(*) 1 GM in NS 0.9% 50 ML* 50 ML IVPB SCH (03:24)
[2018-02-20 05:59] LABS: ABS Basophils 0 10^3/ul (0-0.2); ABS Eosinophils 0.1 10^3/ul (0-0.6); ABS Lymphocytes 0.6 10^3/ul (1.0-4.8); ABS Monocytes 0.9 10^3/ul (0-0.8); ABS Nucleated RBC 0 10^3/ul; Eosinophil % 0.6 %; Hematocrit 30 % (42-52); Hemoglobin 9.9 g/dl (14.0-18.0); Lymphocyte % 5.9 %; Mean Corpuscular HGB Conc 33 g/dl (31-36); Mean Corpuscular Hemoglobin 26 pg (27-31); Mean Corpuscular Volume 80 fL (80-94); Mean Platelet Volume 8.5 fL (7.4-10.4); Nucleated Red Blood Cells % 0.1; Platelet Count 192 10^3/ul (150-450); Red Blood Count 3.76 10^6/ul (4.00-5.40); Red Cell Distribution Width 15 % (10.5-15); White Blood Count 10.6 10^3/ul (3.5-10.8)
[2018-02-20 07:08] LABS: EGFR Non-African American 96.3 (>60)
[2018-02-20] MEDS: Ferrous Sulfate TAB* 325 MG PO SCH ×3 (09:39→20:00)
[2018-02-20] MEDS: Docusate CAP* 100 MG PO SCH ×2 (09:39→20:02)
[2018-02-20] MEDS: CMCS:Pantoprazole TAB (NF) 40 MG TAB PO SCH ×2 (09:39→20:00)
[2018-02-20] MEDS: Clopidogrel TAB* 75 MG PO SCH (09:39)
[2018-02-20] MEDS: Metoprolol Tartrate TAB* 25 MG PO SCH ×2 (09:39→20:00)
[2018-02-20] MEDS: Aspirin 81 mg CHEW TAB* 81 MG TAB.CHEW PO SCH (09:40)
[2018-02-20] MEDS: amLODIPine TAB* 5 MG PO SCH (09:40)
[2018-02-20] MEDS ORDERED: Polyethylene Glycol 3350* 17 GM PACKET PO PRN (11:16)
[2018-02-20] MEDS: Finasteride TAB* 5 MG PO SCH (17:58)
[2018-02-20] MEDS: Tamsulosin CAP* 0.4 MG PO SCH (17:58)
--- NOTE | 2018-02-20 18:10 | PN ---
Subjective Date of Service: 02/20/18 Interval History: Patient doing well. no acute distress. taking po. no fever or chills. He was constipated last BM one week ago. He did have miralax and had large bowel movement afterward. I discussed with Urology Dr Douglas and the patient to go home with the ann catheter (due to large BPH) Past Medical History: Unchanged from Admission Objective Active Medications: Acetaminophen (Tylenol Tab*) 650 mg PO Q4H PRN PRN Reason: FEVER/PAIN Last Admin: 02/19/18 15:47 Dose: 650 mg Amlodipine Besylate (Norvasc Tab*) 5 mg PO DAILY [facility] Last Admin: 02/20/18 09:40 Dose: 5 mg Aspirin (Aspirin 81 Mg Chew Tab*) 81 mg PO DAILY [facility] Last Admin: 02/20/18 09:40 Dose: 81 mg Atorvastatin Calcium (Lipitor*) 80 mg PO 2100 [facility] Last Admin: 02/19/18 20:56 Dose: 80 mg Clopidogrel Bisulfate (Plavix Tab*) 75 mg PO DAILY [facility] Last Admin: 02/20/18 09:39 Dose: 75 mg Docusate Sodium (Colace Cap*) 100 mg PO BID [facility] Last Admin: 02/20/18 09:39 Dose: 100 mg Ferrous Sulfate (Ferrous Sulfate Tab*) 325 mg PO BID [facility] Last Admin: 02/20/18 09:42 Dose: Not Given Finasteride (Proscar Tab*) 5 mg PO QPM [facility] Last Admin: 02/20/18 17:58 Dose: 5 mg Ceftriaxone Sodium 1 gm/ (Sodium Chloride) 50 mls @ 200 mls/hr IVPB Q24H [facility] Last Admin: 02/20/18 03:24 Dose: 200 mls/hr Lactated Ringer's (Lactated Ringers 1000 Ml Bag*) 1,000 mls @ 100 mls/hr IV PER RATE [facility] Last Admin: 02/20/18 12:06 Dose: 100 mls/hr Metoprolol Tartrate (Lopressor Tab*) 12.5 mg PO Q12HR [facility] Last Admin: 02/20/18 09:39 Dose: 12.5 mg Ondansetron HCl (Zofran Inj*) 4 mg IV Q6H PRN PRN Reason: NAUSEA Pantoprazole Sodium (Protonix Tab (Nf)) 40 mg PO BID [facility] Last Admin: 02/20/18 09:39 Dose: 40 mg Polyethylene Glycol/Electrolytes (Miralax*) 17 gm PO DAILY PRN PRN Reason: CONSTIPATION Senna (Senokot Tab*) 2 tab PO BEDTIME [facility] Last Admin: 02/19/18 20:55 Dose: 2 tab Tamsulosin HCl (Flomax Cap*) 0.4 mg PO QPM [facility] Last Admin: 02/20/18 17:58 Dose: 0.4 mg Vital Signs - 8 hr 02/20/18 02/20/18 11:31 15:42 Temperature 99.9 F 99.0 F Pulse Rate 74 77 Respiratory 16 18 Rate Blood Pressure 125/59 128/64 (mmHg) O2 Sat by Pulse 99 95 Oximetry Oxygen Devices in Use Now: None Appearance: Awake, Alert no acute distress Eyes: No Scleral Icterus, - - EOMI Ears/Nose/Mouth/Throat: NL Teeth, Lips, Gums, Mucous Membranes Moist Neck: NL Appearance and Movements; NL JVP, Trachea Midline Respiratory: Symmetrical Chest Expansion and Respiratory Effort, Clear to Auscultation Cardiovascular: NL Sounds; No Murmurs; No JVD, RRR Abdominal: NL Sounds; No Tenderness; No Distention Extremities: No Edema Neurological: Alert and Oriented x 3, NL Muscle Strength and Tone Result Diagrams: 02/20/18 05:37 02/20/18 05:37 Microbiology and Other Data: Microbiology 02/19/18 02:25 Influenza Types A,B Antigen - Final Nasopharyngeal Specimen received for Influenza A/B Molecular testing Assess/Plan/Problems-Billing Assessment: 77 y/o male admitted for Hematuria and UTI - Patient Problems (1) UTI (urinary tract infection) Current Visit: Yes Status: Acute Comment: - final culture negative, possibly partially treated UTI given his presentation of temp 102.5, and leukocytosis. Howerver he did respond well to his ceftriaxone 1 gm daily Day # 2 - s/p CBI for hemauria. I discussed with Dr. Sewell patient is not to have ann in and to go home with it and follow up with urology outpatient. Possible discharge in am (2) Hematuria Current Visit: Yes Status: Acute Code(s): R31.9 - HEMATURIA, UNSPECIFIED SNOMED Code(s): 33482140 Comment: - final culture negative. continue with ceftriazone 1 gm daily day # 2 - s/p CBI for hemauria - He is to go home with the ann catheter and follow up with Dr. Sewell (3) CAD (coronary artery disease) Current Visit: Yes Status: Acute Code(s): I25.10 - ATHSCL HEART DISEASE OF [place] CORONARY ARTERY W/O ANG PCTRS SNOMED Code(s): 68484131 Comment: - Recent hospitalization for non stemi - Recent cath non obstuctive CAD. medical managment - continue aspirin, plavix, lipitor, amlodipine and lopressor 12.5 mg bid (4) BPH (benign prostatic hyperplasia) Current Visit: No Status: Acute Code(s): N40.0 - BENIGN PROSTATIC HYPERPLASIA WITHOUT LOWER URINRY TRACT SYMP SNOMED Code(s): 531350067 Comment: - Continue finasteride and tamsulosin (5) Hyperlipidemia Current Visit: No Status: Acute Code(s): E78.5 - HYPERLIPIDEMIA, UNSPECIFIED SNOMED Code(s): 90353738 Comment: - Continue atorvastatin 80 mg daily (6) Hypertension Current Visit: No Status: Acute Code(s): I10 - ESSENTIAL (PRIMARY) HYPERTENSION SNOMED Code(s): 06591563 Comment: continue amlodipine 5 mg daily, lopressor 12.5 mg bid (7) DVT prophylaxis Current Visit: No Status: Acute Code(s): OMC3149 - SNOMED Code(s): 325767051 Comment: - SCDs as he presented with hematuria and he is on aspirin and plavix as well Status and Disposition: Home in am on oral antibiotic for presumed UTI and to maintain ann catheter in
[2018-02-20] MEDS ORDERED: Potassium Chlor TAB* 20 MEQ TAB.ER PO ONE (18:17)
[2018-02-20] MEDS: Atorvastatin* 80 MG TAB PO SCH (20:00)
[2018-02-20] MEDS: Senna TAB PO SCH (20:02)
[2018-02-21] MEDS: Acetaminophen TAB* 325 MG PO PRN ×2 (03:04→08:45)
[2018-02-21] MEDS: cefTRIAXone(*) 1 GM in NS 0.9% 50 ML* 50 ML IVPB SCH (03:06)
[2018-02-21 05:09] LABS: ABS Basophils 0 10^3/ul (0-0.2); ABS Eosinophils 0.1 10^3/ul (0-0.6); ABS Lymphocytes 0.6 10^3/ul (1.0-4.8); ABS Monocytes 0.8 10^3/ul (0-0.8); ABS Neutrophils 8.3 10^3/ul (1.5-7.7); ABS Nucleated RBC 0 10^3/ul; Eosinophil % 1.4 %; Hematocrit 29 % (42-52); Hemoglobin 9.5 g/dl (14.0-18.0); Lymphocyte % 5.6 %; Mean Corpuscular HGB Conc 33 g/dl (31-36); Mean Corpuscular Hemoglobin 26 pg (27-31); Mean Corpuscular Volume 80 fL (80-94); Mean Platelet Volume 8.7 fL (7.4-10.4); Nucleated Red Blood Cells % 0; Platelet Count 189 10^3/ul (150-450); Red Cell Distribution Width 15 % (10.5-15); White Blood Count 9.9 10^3/ul (3.5-10.8)
[2018-02-21 05:25] LABS: EGFR Non-African American 96.3 (>60)
[2018-02-21] MEDS: Metoprolol Tartrate TAB* 25 MG PO SCH (08:45)
[2018-02-21] MEDS: Aspirin 81 mg CHEW TAB* 81 MG TAB.CHEW PO SCH (08:45)
[2018-02-21] MEDS: Docusate CAP* 100 MG PO SCH (08:46)
[2018-02-21] MEDS: amLODIPine TAB* 5 MG PO SCH (08:46)
[2018-02-21] MEDS: Clopidogrel TAB* 75 MG PO SCH (08:46)
[2018-02-21] MEDS: Ferrous Sulfate TAB* 325 MG PO SCH (08:46)
[2018-02-21] MEDS: CMCS:Pantoprazole TAB (NF) 40 MG TAB PO SCH (08:54)
[2018-02-21 15:49] VITALS: BP 113/55
--- NOTE | 2018-02-22 12:05 | DS ---
CC: Dr. Tierney; Dr. Raya; Dr. Douglas * DISCHARGE SUMMARY: DATE OF ADMISSION: 02/19/18 DATE OF DISCHARGE: 02/21/18 PRIMARY CARE PROVIDER: Dr. Tierney. WATER PURIFIER OPERATOR: Dr. Raya. UROLOGIST: Dr. Douglas. DISCHARGE DIAGNOSES: 1. Urinary retention. 2. Sepsis secondary to urinary tract infection. SECONDARY DIAGNOSES: 1. Recent admission for non-ST elevation myocardial infarction, found to have severe coronary artery disease and anemia suspected to be secondary to NSAID use /gastrointestinal bleed. 2. Hyperlipidemia. 3. Benign prostatic hyperplasia. MEDICATIONS AT THE TIME OF DISCHARGE: 1. Atorvastatin 80 mg p.o. at bedtime. 2. Aspirin 81 mg p.o. daily. 3. Tamsulosin 0.4 mg p.o. at bedtime. 4. Finasteride 5 mg p.o. at bedtime. 5. Amlodipine 5 mg p.o. daily. 6. Pantoprazole 40 mg p.o. b.i.d. 7. Metoprolol tartrate 12.5 mg p.o. b.i.d. 8. Ferrous sulfate 325 mg p.o. b.i.d. 9. Plavix 75 mg p.o. daily. 10. Nitroglycerin 0.4 mg sublingual q.5 minutes p.r.n. chest pain. New medications: 1. Bactrim DS 1 tablet p.o. b.i.d. for 7 more days. 2. Acetaminophen 650 mg p.o. q.4 hours p.r.n. pain or fever. HOSPITAL COURSE: Mr. Robles is a 77-year-old male with a past medical history as stated above that was admitted to [facility] from 02/14/18 to 02/17/18. At that point , he had presented with chest pain and he was seen in consultation by Cardiology and had a grossly abnormal stress test. He was taking to the denture laboratory technician by Dr. Raya on 02/16/18 and it showed significant coronary artery disease involving the small caliber first obtuse marginal superior branch as well as totally occluded mid posterior descending artery. No stent was placed at that time and plan was for aggressive medical management. He was started on aspirin , Plavix. His atorvastatin was increased to a high dose and the plan was for him to have close followup with Dr. Raya this week to decide about further management including a possible stress test in 2 weeks. The patient presented to the emergency room on 02/19/18 with inability to urinate. At that point, his only complaint was that he had urgency and he could not pass urine. There was no report of dysuria, frequency, flank, or abdominal pain. In the emergency room, a Byers catheter was placed but it was with difficulty. It was not draining well and the patient was having hematuria and urethral discomfort. Dr. Douglas saw the patient in consultation, who was able to change his catheter and he required continuous bladder irrigation. At that point, the patient developed fever of 102.5, became tachycardic with a presentation compatible with sepsis, likely of a urinary source due to his urinary manipulation. Dr. Douglas's impression was that the patient had urinary retention with an episode of hematuria, most likely secondary to traumatic insertion of the Byers into the prostatic urethra while the patient is on anticoagulation with aspirin and Plavix. The patient was admitted to the medical floor for further evaluation and management of his sepsis. The patient had symptomatic improvement, became afebrile with stable vital signs. Blood and urine cultures showed no growth at the time of discharge. I did discuss the case with Dr. Douglas and his recommendation was to complete treatment with Bactrim instead of a cephalosporin as it has better penetration in the prostate and urinary tract. The patient will be discharged home with his Byesr to follow up with Dr. Douglas as outpatient. The clinical picture gets more complicated as the patient was scheduled to have an outpatient prostate biopsy, but this was not felt to be an emergent issue before. But now that he developed urinary retention, he will need follow up with Cardiology to decide about anticoagulation and the timing of his urological procedure. So, Dr. Douglas will contact Dr. Raya for coordination of care for arrangements for urological procedure in the future. The patient is afebrile. He has had no urinary complaints. He was able to walk around the unit and do stairs with physical therapy with no issues and he was felt to be medically stable for discharge today, to follow up with Dr. Tierney, Dr. Raya, and Dr. Douglas as outpatient. As he is being discharged on Bactrim, a BMP was requested to be done on to monitor his renal function and potassium and the results will be sent to his primary care provider, Dr. Tierney, and to Dr. Douglas. PHYSICAL EXAMINATION: Vital Signs: Temperature 98.6, heart rate is 85, respiratory rate is 16, oxygen saturation 96% on room air, blood pressure 113/ 55. General: The patient is a pleasant elderly gentleman, sitting up in bed, in no acute distress. CVS: Normal S1, S2. Regular rate and rhythm. Chest: Breath sounds bilaterally. No added sounds. Abdomen is soft. Bowel sounds are present. Extremities: No edema. Neuro: He is alert and oriented x3, able to move all 4 extremities. DIET: Heart healthy diet. ACTIVITIES: As tolerated. DISPOSITION: To home. STATUS WHILE IN THE HOSPITAL: Observation. Please keep in mind this is a summarized version of this patient's hospital stay. If you need more information, please feel free to call me at [phone] or please obtain the full medical records. TIME SPENT: Approximately 45 minutes was spent to complete this discharge. [id number]/CPS #: [id number] JOSE
== END 2018-02-21 16:35 | disposition home or self-care (01) | DRG 720 ==
LOC: ED 21:21 → SSU 02-19 02:01 → OBSVTOIN 02-20 16:00
PROVIDERS: ADMIT Internal Medicine; ATTEND Internal Medicine
PROC: 0T9B70Z Drainage of Bladder with Drainage Device, Via Natural or Artificial Opening (ICD-10-PCS; principal; 2018-02-20)
PROC: 0TPBX0Z Removal of Drainage Device from Bladder, External Approach (ICD-10-PCS; 2018-02-20)
PROC: 0T9B70Z Drainage of Bladder with Drainage Device, Via Natural or Artificial Opening (ICD-10-PCS; 2018-02-20)
DX: A41.9 Sepsis, unspecified organism (principal); N39.0 Urinary tract infection, site not specified; I25.10 Atherosclerotic heart disease of native coronary artery without angina pectoris; R21 Rash and other nonspecific skin eruption; I10 Essential (primary) hypertension; R33.9 Retention of urine, unspecified; R31.9 Hematuria, unspecified; K59.00 Constipation, unspecified; D64.9 Anemia, unspecified; T39.395A Adverse effect of other nonsteroidal anti-inflammatory drugs [NSAID], initial encounter; N40.0 Benign prostatic hyperplasia without lower urinary tract symptoms; E78.5 Hyperlipidemia, unspecified; Z98.1 Arthrodesis status; Z98.42 Cataract extraction status, left eye; Z98.41 Cataract extraction status, right eye; Z82.49 Family history of ischemic heart disease and other diseases of the circulatory system; Z79.82 Long term (current) use of aspirin; Z79.02 Long term (current) use of antithrombotics/antiplatelets; Z83.3 Family history of diabetes mellitus; Y92.009 Unspecified place in unspecified non-institutional (private) residence as the place of occurrence of the external cause
CPT/HCPCS: 36415; 71045; 80048; 80053; 81003; 81015; 83605; 85025; 85610; 85730; 87040; 87086; 96365; 99285; A9270-GY; G0378; J0696

== ENCOUNTER 2018-03-06 15:34 | Emergency (ER) | payer OTHER, MEDICARE ==
--- NOTE | 2018-03-06 15:55 | ED ---
GI/ HPI - HPI Summary HPI Summary: This patient is a 77 year old M presenting to [facility] with a chief complaint of a blocked catheter since 2 hours ago. The catheter was put in by Dr. Otoole 2- 2.5 weeks ago for an enlarged prostate. He used Surgilube prior to the blockage because it was bleeding and irritating. Patient reports abdominal pain ( preexisting, 2 weeks ago), hematuria (prior to blockage. Patient denies CP, LE pain, and fever. Patient is on Flomax. He has a PMHx of MS. - History of Current Complaint Chief Complaint: EDUrogenitalProblems Time Seen by Provider: 03/06/18 15:44 Stated Complaint: CATHETER PROBLEMS Hx Obtained From: Patient Onset/Duration: Started Hours Ago - 2 hours ago, Still Present Timing: Constant, Lasting Hours - 2 hours ago Pain Intensity: 0 Associated Signs and Symptoms: Positive: Hematuria - prior to blockage, Other: - Abdominal pain (preexisting, 2 weeks ago). Denies LE pain. Negative: Fever, Chest Pain - Additional Pertinent History Primary Care Physician: SINA - Allergy/Home Medications Allergies/Adverse Reactions: Allergies Allergy/AdvReac Type Severity Reaction Status Date / Time No Known Allergies Allergy Verified 02/10/18 20:20 PMH/Surg Hx/FS Hx/Imm Hx Endocrine/Hematology History: Denies: Hx Diabetes Cardiovascular History: Reports: Hx Angina, Hx Hypercholesterolemia, Other Cardiovascular Problems/Disorders - MS a week ago Denies: Hx Coronary Artery Disease, Hx Hypertension, Hx Myocardial Infarction , Hx Valvular Heart Disease Respiratory History: Denies: Hx Asthma, Hx Chronic Obstructive Pulmonary Disease (COPD) Sensory History: Reports: Hx Contacts or Glasses - READING GLASSES Denies: Hx Hearing Aid Opthamlomology History: Reports: Hx Contacts or Glasses - READING GLASSES - Surgical History Surgery Procedure, Year, and Place[place] [facility] [place] [facility] [place] Anesthesia Reactions: No Infectious Disease History: No Infectious Disease History: Denies: Traveled Outside the [place] in Last 30 Days - Family History Known Family History: Positive: Cardiac Disease - MS (father at 57 y/o), Other - MS (father at 57 y/o) - Social History Alcohol Use: None Substance Use Type: Reports: None Smoking Status (MU): Never Smoked Tobacco Review of Systems Negative: Fever Negative: Chest Pain Positive: Abdominal Pain - Preexisting, 2 weeks ago Positive: hematuria - Prior to bloackage, other - Blocked catheter Negative: Other - LE pain All Other Systems Reviewed And Are Negative: Yes Physical Exam - Summary Physical Exam Summary: General: well-appearing, no pain distress Skin: warm, color reflects adequate perfusion, dry Head: normal Eyes: EOMI, [place] ENT: normal Neck: supple, nontender Respiratory: CTA, breath sounds present Cardiovascular: RRR Abdomen: soft, nontender Bowel: present Musculoskeletal: normal, strength/ROM intact Neurological: sensory/motor intact, A&O x3 Psychological: affect/mood appropriate Triage Information Reviewed: Yes Vital Signs On Initial Exam: Initial Vitals Temp Pulse Resp BP Pulse Ox 97.9 F 65 16 127/60 99 03/06/18 15:38 03/06/18 15:38 03/06/18 15:38 03/06/18 15:38 03/06/18 15:38 Vital Signs Reviewed: Yes Diagnostics - Vital Signs Vital Signs Temp Pulse Resp BP Pulse Ox 03/06/18 15:38 97.9 F 65 16 127/60 99 - Laboratory Lab Statement: Any lab studies that have been ordered have been reviewed, and results considered in the medical decision making process. Re-Evaluation - Re-Evaluation 1 Re-Evaluation Time: 16:19 Change: Improved Comment: Catheter is no longer blocked. Urine is flowing GIGU Course/Dx - Course Course Of Treatment: After nursing flush the catheter the urine started flowing again. It was slightly blood tinged. Plan is to follow-up with urology return to the emergency department if worse or any questions or concerns. - Diagnoses Provider Diagnoses: Complication, blocked Byers catheter Discharge - Sign-Out/Discharge Documenting (check all that apply): Patient Departure - D/C - Discharge Plan Condition: Stable Disposition: HOME Patient Education Materials: Byers Catheter Placement and Care (ED) Referrals: Bryan Tierney DO [Primary Care Provider] - Ronny Otoole MD [Medical Doctor] - Additional Instructions: FOLLOW UP WITH UROLOGY, DR OTOOLE. GET RECHECKED FOR ANY WORSENING OF YOUR CONDITION OR QUESTIONS OR CONCERNS. - Billing Disposition and Condition Condition: STABLE Disposition: Home - Attestation Statements Document Initiated by Scribe: Yes Documenting Scribe: Jorge Nascimento Provider For Whom Scribe is Documenting (Include Credential): Shelton Klein MD Scribe Attestation: I, Jorge Nascimento, scribed for Shelton Klein MD on 03/06/18 at 1824. Scribe Documentation Reviewed: Yes Provider Attestation: The documentation as recorded by the Jorge harvey accurately reflects the service I personally performed and the decisions made by me, Shelton Klein MD Status of Scribe Document: Viewed
--- OUTSIDE RECORDS SUMMARY | 2018-03-06 16:34 | XMS REPORT | Continuity of Care Document ---
:1940 External Reference #:[id number] Author Name Sander Charisse Care Team Providers Name Role Phone Jeffery Wilson MD Care Team Information World Geography Teacher Unavailable Bryan Tierney DO Primary Care Physician Unavailable Payers Type Date Identification Numbers Payment Provider Subscriber Policy Number: [id number] Medicare Reggie Stratton Travis PayID: [id number] [facility] [address] [place] [address] Effective: 2012 Policy Number: [id number] [facility] Health Plan [facility] eRggie Chayito Robles Expires: 2013 PayID: [id number] [facility] Claims Dept [address] [place] [id number] Policy Number: [id number] [facility] (Medicare) Reggie Robles PayID: [id number] [place] [address] [place] [phone] Expires: 2016 Policy Number: [id number] Medicare Reggie Robles PayID: [id number] [address] [place] [address] Advance Directives Description No Information Available Problems Description No Information Family History Description No Information Available Social History Type Date Description Comments Sex Unknown Lives With Spouse Occupation Retired ETOH Use Denies alcohol use Tobacco Use Start: Unknown Patient has never smoked Smoking Status Reviewed: 03/05/18 Patient has never smoked Exercise Type/Frequency Does not exercise Allergies, Adverse Reactions, Alerts Description No Known Drug Allergies Medications Medication Date Status Form Strength Qnty SIG Indications Ordering Provider Ibuprofen 01/31/ Active Tablets 600mg 60tabs 1 pill Nirav 2013 three Felisa, times a M.D. day as needed Tramadol HCL 01/23/ Active Tablets 50mg 60tabs 1 tablets Veronica 2013 by mouth Kevin, q6 hours M.D. as needed pain Atorvastatin / Active Tablets 80mg once Unknown Calcium 0000 daily by mouth at bedtime Tamsulosin HCL / Active Capsules 0.4mg daily by Unknown 0000 mouth at bedtime Ibuprofen / Active Tablets 600mg As Unknown 0000 Directed Finasteride / Active Tablets 5mg once Unknown 0000 daily by mouth at bedtime. Aspir-81 / Active Tablets DR 81mg 1 by Unknown 0000 mouth every day Amlodipine / Active Tablets 5mg 1 by Unknown Besylate 0000 mouth every day Pantoprazole / Active Tablets DR 40mg 1 by Unknown Sodium 0000 mouth twice daily Metoprolol / Active Tablets 25mg 1/2 tab Unknown Tartrate 0000 by mouth twice a day Ferrous Sulfate / Active Tablets 325(65Fe) 1 by Unknown 0000 mg mouth twice daily Plavix / Active Tablets 75mg 1 by Unknown 0000 mouth every day Nitroglycerin / Active Tablets 0.4mg 1 sl Unknown 0000 Sub q5mins x3 as needed for chest pain [place] 06/21/ Hx Tablets 5-325mg 15tabs 1po q4-6 Veronica 2012 - prn Kevin 01/17/ ned M.DR[place] 2013 Medications Administered in Office Medication Date Status Form Strength Qnty SIG Indications Ordering Provider Depomedrol Administered Injection Veronica 80MG 015 Claude Brown Immunizations Description No Information Available Vital Signs Date Vital Result Comment 03/05/2018 10:27am Height 70 inches 5'10" Weight 193.00 lb with shoes Heart Rate 62 /min BP Systolic Sitting 110 mmHg lue reg cuff BP Diastolic Sitting 62 mmHg lue reg cuff BMI (Body Mass Index) 27.7 kg/m2 03/05/2018 10:16am Height 70 inches 5'10" 07/24/2014 2:48pm Height 70 inches 5'10" Weight 220.00 lb Pain Level 7 BMI (Body Mass Index) 31.6 kg/m2 02/13/2014 8:56am Height 70 inches 5'10" Heart Rate 58 /min BP Systolic 169 mmHg BP Diastolic 87 mmHg 01/23/2014 11:05am Height 70 inches 5'10" Weight 200.00 lb Heart Rate 53 /min BP Systolic 178 mmHg BP Diastolic 96 mmHg BMI (Body Mass Index) 28.7 kg/m2 Results Description No Information Available Procedures Date Code Description Status 03/05/2018 13093 EKG Tracing & Interpretation Completed 02/16/2018 31490 Left Heart Cath. Incl S/I Coronaries, Angio S/I V Gram If Completed Done 02/16/2018 75510 EKG, Interpretation Only Completed 02/15/2018 65738 ECHO Transthorasic Realtime 2D W Doppler & Color Flow Hosp Completed 02/15/2018 79281 Treadmill Interp/Report Only Completed 02/15/2018 11403 Stress Test Supervsn W/Out I/R Completed 07/24/201481517 Inject Tendon Sheath Or Ligament Aponeurosis Eg Plantar Completed Fascia 01/31/2014 29778 Carpal Tunnel Release Completed 12/19/2013 50271 Nerve Conduction 07-08 Studies Completed 07/12/2012 71969 Rad Exam; Ankle Comp Completed 06/21/2012 22390 Rad Exam; Ankle Comp Completed 06/13/2012 76840 Rad Exam; Ankle Comp Completed 06/05/2012 45591 FX Ankle Trimalleolar W/O Manipulation Completed 06/05/2012 01419 Closed [place] Bimalleolar FX W/O Manip Completed Encounters Type Date Location Provider Dx Diagnosis Office Visit 02/21/2018 [facility] Laura Fay, A41.9 Sepsis, 9:45a Assoc,pc M.D. unspecified Hospitalists organism N39.0 Urinary tract infection, site not specified N40.1 Benign prostatic hyperplasia with lower urinary tract symp R33.8 Other retention of urine I10 Essential (primary) hypertension Office Visit 02/19/2018 [facility] Gallito A41.9 Sepsis, 9:20a Assoc,pc Jorge, N.P. unspecified Hospitalists organism R33.8 Other retention of urine N40.1 Benign prostatic hyperplasia with lower urinary tract symp I10 Essential (primary) hypertension I25.10 Athscl heart disease of cahto coronary artery w/o ang pctrs Office Visit 02/17/2018 11:21a [facility] Jacquelyn Noble, I10 Essential ( primary) Assoc,pc N.P. hypertension Hospitalists I21.4 Non-St elevation (Nstemi) myocardial infarction I25.10 Athscl heart disease of cahto coronary artery w/o ang pctrs D64.9 Anemia, unspecified Office Visit 02/16/2018 11:21a [facility] Jacquelyn Noble, I10 Essential ( primary) Assoc,pc N.P. hypertension Hospitalists I21.4 Non-St elevation (Nstemi) myocardial infarction E78.5 Hyperlipidemia, unspecified N40.0 Benign prostatic hyperplasia without lower urinry tract symp Office Visit 02/15/2018 4:03p [facility] Rogelio Andreijusta, I21.4 Non- St elevation Of Pit [employer] AT [facility] M.D., [facility], (Nstemi) FSCAI myocardial infarction D64.9 Anemia, unspecified N42.9 Disorder of prostate, unspecified Office Visit 02/15/2018 11:21a [facility] Katelyn Felicia, I21.3 St elevation Assoc,pc GERM DRIER (Stemi) Hospitalists [facility] D50.9 Iron deficiency anemia, unspecified K27.9 Peptic ulc, site unsp, unsp as ac or chr, w/o hemor or perf E78.5 Hyperlipidemia, unspecified Office Visit 02/14/2018 11:20a [facility] Gwen R07.9 Chest pain, Assoc,pc Root, DO unspecified Hospitalists R79.89 Other specified abnormal findings of blood chemistry E78.5 Hyperlipidemia, unspecified Office Visit 09/15/2016 9:30a [facility] Eliud Chino, 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 354.0 Carpal Tunnel Syndrome Office Visit 01/23/2014 11:00a Orthopedic Veronica Brown, 354.0 [facility] Syndrome C.M.A. Plan of Treatment 03/05/2018 - Emmie Angelo, DONALDOI10 Essential (primary) cbqynysixsbmV67.10 Atherosclerotic heart disease of cahto coronary artery withFollow up:f/u in [address] Hdz78.5 Hyperlipidemia, sxpwhrtwjksV30.2 Thoracic aortic aneurysm, without ruptureRecommendations:repeat echo in one year
--- OUTSIDE RECORDS SUMMARY | 2018-03-06 16:34 | XMS REPORT | Continuity of Care Document ---
:1940 External Reference #:[id number] Author Name Silvia Cain Care Team Providers Name Role Phone Jeffery Wilson MD Care Team Information Life Skills Coordinator Unavailable Bryan Tierney DO Primary Care Physician Unavailable Payers Type Date Identification Numbers Payment Provider Subscriber Effective: Policy Number: [id number] [facility] Health Plan [facility] Reggie Robles 2012 Expires: 2013 [facility]: [id number] [facility] [address] [place] [address] Policy Number: [id number] [facility] (Medicare) Reggie Robles PayID: [id number] [place] [address] [place] [phone] Expires: 2016 Policy Number: [id number] Medicare Reggie Chayito Travis PayID: [id number] [address] [place] [address] Advance Directives Description No Information Available Problems Description No Information Family History Description No Information Available Social History Type Date Description Comments Sex Unknown Lives With Spouse Occupation Retired ETOH Use Denies alcohol use Tobacco Use Start: Unknown Patient has never smoked Exercise Type/Frequency Does not exercise Allergies, Adverse Reactions, Alerts Description No Known Drug Allergies Medications Medication Date Status Form Strength Qnty SIG Indications Ordering Provider Ibuprofen 01/31/ Active Tablets 600mg 60tabs 1 pill Nirav 2013 three Felisa, times a M.D. day as needed Tramadol HCL 01/23/ Active Tablets 50mg 60tabs 1 tablets Veronica 2013 by rainer Brown M.D. q6 hours as needed pain Atorvastatin 00/00/ Active Tablets 40mg As Unknown Calcium 0000 Directed Tamsulosin HCL 00/ Active Capsules 0.4mg As Unknown 0000 Directed Ibuprofen / Active Tablets 600mg As Unknown 0000 Directed Finasteride 00/ Active Tablets 5mg As Unknown 0000 Directed [place] 06/21/ Hx Tablets 5-325mg 15tabs 1po q4-6 Veronica 2013 - hr prn Claude Brown 01/17/ pain 2013 Medications Administered in Office Medication Date Status Form Strength Qnty SIG Indications Ordering Provider Depomedrol Administered Injection Veronica 80MG 015 Claude Brown Immunizations Description No Information Available Vital Signs Date Vital Result Comment 07/24/2014 2:48pm Height 70 inches 5'10" Weight [...] Information Available Procedures Date Code Description Status 07/24/2014 73248 Inject Tendon Sheath Or Ligament Aponeurosis Eg Plantar Completed Fascia 01/31/2014 17199 Carpal Tunnel Release Completed 12/19/2013 94157 Nerve Conduction 07-08 Studies Completed 07/12/2012 70616 Rad Exam; Ankle Comp Completed 06/21/2012 95306 Rad Exam; Ankle Comp Completed 06/13/2012 78806 Rad Exam; Ankle Comp Completed 06/05/2012 47270 FX Ankle Trimalleolar W/O Manipulation Completed 06/05/2012 10907 Closed [place] Bimalleolar FX W/O Manip Completed Encounters Type Date Location Provider Dx Diagnosis Office Visit 09/15/2016 [facility] Eliud Chino MD 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 354.0 Carpal Tunnel Syndrome Office Visit 01/23/2014 11:00a Orthopedic Veronica rBown, 354.0 Carpal Tunnel Services Of MBen Syndrome C.[place] Plan of Treatment 07/24/2014 - Veronica Brown M.D.727.03 Trigger Finger Daesvspn077.0 Carpal Tunnel SyndromeFollow up:Follow up: As needed
--- OUTSIDE RECORDS SUMMARY | 2018-03-06 16:34 | XMS REPORT | Continuity of Care Document ---
:1940 External Reference #:[id number] Author Name Bryan Tierney D.O. Address [address] [place] [address] Care Team Providers Name Role Phone HCP given Primary Care Physician Unavailable Payers Type Date Identification Numbers Payment Provider Subscriber Policy Number: [id number] [facility] Reggie Robles PayID: [id number] [address] [place] [address] Policy Number: [id number] [facility] Reggie Robles PayID: [id number] [address] [place] [address] Advance Directives Description No Information Available Problems Description No Information Family History Description No Information Available Social History Type Date Description Comments Sex Unknown Marital Status Tobacco Use Start: Unknown End: Former Cigarette Smoker Quit smoking 30 years Unknown ago Smoking Status Reviewed: 02/26/18 Former Cigarette Smoker Quit smoking 30 years ago Allergies, Adverse Reactions, Alerts Description No Known Drug Allergies Medications Medication Date Status Form Strength Qnty SIG Indications Ordering Provider Atorvastatin 02/21/ Active Tablets 80mg 1 by mouth Unknown Calcium 2018 every day at bedtime Aspirin Adult 02/21/ Active Tablets 81mg 1 by mouth Unknown Low Strength 2018 DR every day Ra 02/21/ Active Tablets 325mg take 2 Unknown Acetaminophen 2018 tablets by mouth every 4 hours if needed for Fever/ pain Ferrous Sulfate 02/21/ Active Tablets 325mg 1 tab by Unknown 2018 mouth twice daily Amlodipine 02/17/ Active Tablets 5mg take 1 tablet Unknown Besylate 2018 by mouth once daily Pantoprazole 02/17/ Active Tablets 40mg take 1 tablet Unknown Sodium 2018 DR by mouth twice a day Metoprolol 02/17/ Active Tablets 25mg Take 1/2 Unknown Tartrate 2018 Tablet By Mouth Every 12 Hours Clopidogrel 02/17/ Active Tablets 75mg take 1 tablet Unknown Bisulfate 2018 by mouth once daily Nitroglycerin 02/17/ Active Tablets 0.4mg place 1 Unknown 2018 Sub tablet under the tongue if needed every 5 minutes for martínez... (Refer To Prescription Notes). Tamsulosin HCL 02/08/ Active Capsules 0.4mg 1 by mouth Unknown 2017 every day hs Finasteride 02/08/ Active Tablets 5mg 1 by mouth Unknown 2017 every day hs Sulfamethoxazol 02/21/ Hx Tablets 800-160mg take 1 tablet Unknown e/Trimethoprim 2018 - by mouth DS 02/28/ twice a day x 2018 7 days Betamethasone Hx Ointment 0.1% Radha Whitt 2018 - Raji Houser 2017 Aveeno 1% Unknown Hydrocrtisone 2018 - Anti-Itch Cream 2017 Gold Tran 02/11/ Hx 2x/day Unknown Eczema 2018 - Relief-2% 2018 Oatmeal Gold Tran Hx Lotion daily Unknown Ultimate 2018 - Healing 2017 Ibuprofen 02/08/ Hx 200mg 1-2 tabs Unknown 2017 - daily hs 2017 Atorvastatin 02/08/ Hx Tablets 20mg 90tab 1 tablets by Sopchak, Calcium 2017 - s mouth daily Bryan 02/24/ for D.O. 2018 prevention of heart attack and stroke at bedtime Fluocinonide 02/08/ Hx Cream 0.05% prn Unknown Emulsified Base 2017 - 2017 Clobetasol 02/08/ Hx apply to legs Unknown 2017 - arms/hands 02/09/ prn 2017 Hydroxyzine HCL 02/08/ Hx Tablets 25mg prn for Unknown 2017 - itching 2017 Triamcinolone 02/08/ Hx Cream 0.1% prn to Unknown Acetonide 2017 - affected 02/13/ areas as 2018 needed for eczema Eucerine 02/08/ Hx apply body Unknown 2017 - lotion daily 2017 Dove Saop 02/08/ Hx for showering Unknown 2017 - 2017 Clobetasol 02/08/ Hx Cream 0.05% apply to Unknown Propionate 2017 - affected 02/13/ areas prn 2018 Immunizations CPT Code Status Date Vaccine Lot # [id number] Given 02/09/2017 Influenza Virus Vaccine, Quadrivalent, Split, [id number] Preservative Free [id number] Given 02/09/2017 Prevnar 13 [id number] Vital Signs Date Vital Result Comment 02/26/2018 3:57pm BP Systolic 98 mmHg BP Diastolic 60 mmHg Weight 194.00 lb with shoes 02/14/2018 4:17pm BP Systolic 144 mmHg BP [...] Date Facility Test Result H/L Range Note PSA Free And Total 02/28/2018 [facility] PSA Total 16.8 ng/mL Abnormal <=6.5 [phone] PSA Free 2.7 ng/mL PSA Free/Total See Comment ratio 1 Laboratory test 02/28/2018 [facility] Erythrocyte Sed 61 mm/Hr High 0 -40 finding [phone] Rate C Reactive Protein 15.21 mg/L High <8.01 Urinalysis Profile 02/28/2018 [facility] Urine Color Yellow [phone] Urine Appearance Turbid Urine Specific [place] 1.017 N 1.010-1.030 Urine pH 5.0 N 5-9 Urine Urobilinogen Negative Negative Urine Ketones Negative Negative Urine Protein 2+(100 mg/dL) Abnormal Negative Urine Leukocytes 3+ Abnormal Negative Urine Blood 3+ Abnormal Negative Urine Nitrite Negative Negative Urine Bilirubin Negative Negative Urine Glucose Negative Negative Urine White Blood Cell 3+(>20/hpf) Abnormal Absent Urine Red Blood Cell 3+(>10/hpf) Abnormal Absent Urine Bacteria Absent Absent Urine Squamous Epithelial Cell Present Abnormal Absent Urine Yeast Present Abnormal Absent Urine Culture And 02/28/2018 [facility] Urine Culture SEE RESULT 2 Sensitivities [phone] BELOW CBC Auto Diff 02/28/2018 [facility] White Blood 6.9 10^3/uL N 3.5- 10. [phone] Count 8 Red Blood Count 3.76 10^6/uL Low 4.00-5.40 Hemoglobin 9.6 g/dL Low 14.0-18.0 Hematocrit 30 % Low 42-52 Mean Corpuscular Volume 80 fL N 80-94 Mean Corpuscular Hemoglobin 25 pg Low 27-31 Mean Corpuscular HGB Conc 32 g/dL N 31-36 Red Cell Distribution Width 16 % High 10.5-15 Platelet Count 357 10^3/uL N 150-450 Mean Platelet Volume 8.4 fL N 7.4-10.4 Abs Neutrophils 5.5 10^3/uL N 1.5-7.7 Abs Lymphocytes 0.5 10^3/uL Low 1.0-4.8 Abs Monocytes 0.6 10^3/uL N 0-0.8 Abs Eosinophils 0.3 10^3/uL N 0-0.6 Abs Basophils 0.1 10^3/uL N 0-0.2 Abs Nucleated RBC 0 10^3/uL Granulocyte % 79.8 % Lymphocyte % 7.0 % Monocyte % 8.4 % Eosinophil % 3.9 % Basophil % 0.9 % Nucleated Red Blood Cells % 0 Basic Metabolic Panel 02/28/2018 [facility] Sodium 138 mmol/L N 135- 794 [phone] Potassium 4.7 mmol/L N 3.5-5.0 Chloride 105 mmol/L N 101-111 Co2 Carbon Dioxide 26 mmol/L N 22-32 Anion Gap 7 mmol/L N 2-11 Glucose 146 mg/dL High 70-100 Blood Urea Nitrogen 22 mg/dL N 6-24 Creatinine 1.38 mg/dL High 0.67-1.17 BUN/Creatinine Ratio 15.9 N 8-20 Calcium 9.1 mg/dL N 8.6-10.3 Egfr Non- 49.8 >60 Egfr 60.3 >60 3 Basic Metabolic Panel 02/26/2018 [facility] Sodium 140 mmol/L N 135- 145 [phone] Potassium 4.9 mmol/L N 3.5-5.0 Chloride 105 mmol/L N 101-111 Co2 Carbon Dioxide 28 mmol/L N 22-32 Anion Gap 7 mmol/L N 2-11 Glucose 101 mg/dL High 70-100 Blood Urea Nitrogen 22 mg/dL N 6-24 Creatinine 1.25 mg/dL High 0.67-1.17 BUN/Creatinine Ratio 17.6 N 8-20 Calcium 9.3 mg/dL N 8.6-10.3 Egfr Non- 55.9 >60 Egfr 67.6 >60 4 Laboratory test 02/18/2018 [facility] Partial 27.3 seconds N 26.0- 36.3 finding [phone] Thrombo Time PTT Inr/Protime 02/18/2018 [facility] Inr 1.18 High 0.77-1.02 [phone] CBC Auto Diff 02/18/2018 [facility] White Blood 11.2 10^3/uL High 3.5 -10.8 [phone] Count Red Blood Count 4.29 10^6/uL N 4.00-5.40 Hemoglobin 11.0 g/dL Low 14.0-18.0 Hematocrit 35 % Low 42-52 Mean Corpuscular Volume 81 fL N 80-94 Mean Corpuscular Hemoglobin 26 pg Low 27-31 Mean Corpuscular HGB Conc 32 g/dL N 31-36 Red Cell Distribution Width 16 % High 10.5-15 Platelet Count 246 10^3/uL N 150-450 Mean Platelet Volume 8.6 fL N 7.4-10.4 Abs Neutrophils 9.9 10^3/uL High 1.5-7.7 Abs Lymphocytes 0.6 10^3/uL Low 1.0-4.8 Abs Monocytes 0.7 10^3/uL N 0-0.8 Abs Eosinophils 0.1 10^3/uL N 0-0.6 Abs Basophils 0 10^3/uL N 0-0.2 Abs Nucleated RBC 0 10^3/uL Granulocyte % 87.9 % Lymphocyte % 5.4 % Monocyte % 5.9 % Eosinophil % 0.5 % Basophil % 0.3 % Nucleated Red Blood Cells % 0 Comp Metabolic Panel 02/18/2018 [facility] Sodium 143 mmol/L N 135- 145 [phone] Potassium 3.6 mmol/L N 3.5-5.0 Chloride 109 mmol/L N 101-111 Co2 Carbon Dioxide 26 mmol/L N 22-32 Anion Gap 8 mmol/L N 2-11 Calcium 9.4 mg/dL N 8.6-10.3 Albumin 3.9 g/dL N 3.2-5.2 Total Bilirubin 0.40 mg/dL N 0.2-1.0 Glucose 121 mg/dL High 70-100 Blood Urea Nitrogen 27 mg/dL High 6-24 Creatinine 0.98 mg/dL N 0.67-1.17 BUN/Creatinine Ratio 27.6 High 8-20 Total Protein 7.2 g/dL N 6.4-8.9 Globulin 3.3 g/dL N 2-4 Albumin/Globulin Ratio 1.2 N 1-3 Alkaline Phosphatase 89 U/L N 34-104 Alt 16 U/L N 7-52 Ast 20 U/L N 13-39 Egfr Non- 74.0 >60 Egfr 89.5 >60 5 Laboratory test 02/14/2018 [facility] D Dimer 352 ng/mL High Less Than 6 finding [phone] Quantitative 230 Comp Metabolic 02/14/2018 [facility] Sodium 141 mmol/L N 135-145 Panel [phone] Potassium 4.4 mmol/L N 3.5-5.0 Chloride 108 mmol/L N 101-111 Co2 Carbon Dioxide 29 mmol/L N 22-32 Anion Gap 4 mmol/L N 2-11 Glucose 118 mg/dL High 70-100 Blood Urea Nitrogen 21 mg/dL N 6-24 Creatinine 0.85 mg/dL N 0.67-1.17 BUN/Creatinine Ratio 24.7 High 8-20 Calcium 9.7 mg/dL N 8.6-10.3 Total Protein 7.4 g/dL N 6.4-8.9 Albumin 4.0 g/dL N 3.2-5.2 Globulin 3.4 g/dL N 2-4 Albumin/Globulin Ratio 1.2 N 1-3 Total Bilirubin 0.40 mg/dL N 0.2-1.0 Alkaline Phosphatase 100 U/L N 34-104 Alt 13 U/L N 7-52 Ast 17 U/L N 13-39 Egfr Non- 87.2 >60 Egfr 105.5 >60 7 Laboratory test 02/14/2018 [facility] Troponin-I (TnI) 0.06 ng/mL High <0.04 8 finding [phone] CBC Auto Diff 02/14/2018 [facility] White Blood 6.6 10^3/uL N 3.5- 10.8 [phone] Count Red Blood Count 4.51 10^6/uL N 4.00-5.40 Hemoglobin 11.6 g/dL Low 14.0-18.0 Hematocrit 36 % Low 42-52 Mean Corpuscular Volume 81 fL N 80-94 Mean Corpuscular Hemoglobin 26 pg Low 27-31 Mean Corpuscular HGB Conc 32 g/dL N 31-36 Red Cell Distribution Width 15 % N 10.5-15 Platelet Count 240 10^3/uL N 150-450 Mean Platelet Volume 8.6 fL N 7.4-10.4 Abs Neutrophils 5.0 10^3/uL N 1.5-7.7 Abs Lymphocytes 0.9 10^3/uL Low 1.0-4.8 Abs Monocytes 0.6 10^3/uL N 0-0.8 Abs Eosinophils 0.1 10^3/uL N 0-0.6 Abs Basophils 0 10^3/uL N 0-0.2 Abs Nucleated RBC 0 10^3/uL Granulocyte % 75.5 % Lymphocyte % 14.4 % Monocyte % 8.4 % Eosinophil % 1.1 % Basophil % 0.6 % Nucleated Red Blood Cells % 0 Laboratory test 02/05/2018 [facility] PSA Screening 9.094 ng/mL High 0-4.0 9 finding [phone] Laboratory test 01/16/2017 [facility] PSA Screening 5.509 ng/mL High 0-4.0 10 finding [phone] Ratio not calculated because clinical usefulness is not defined except in range of total PSA 4.0-10.0 ng/mL. ADDITIONAL INFORMATION The testing method is an electrochemiluminescence assay manufactured by [employer] and performed on the Modular or Cognitum system. Values obtained with different assay methods or kits may be different and cannot be used interchangeably. Test results cannot be interpreted as absolute evidence for the presence or absence of malignant disease. Test Performed by: [facility] [email or web address] - [address] [address] 2 SEE RESULT BELOW Name: REGGIE ROBLES : [address]: Bryan Tierney DO Acct: [id number] Unit: [id number] AGE: 77 Location: [facility] Re02/28/18 SEX: M Status: REG REF SPEC: [id number] MAURI: 02/28/[address]: Bryan Tierney DO REQ: [id number] RECD: 02/28/18 STATUS: COMP _ SOURCE: URINE SPDESC: ORDERED: Urine Culture Procedure Result Reported Site Urine Culture Final 12/20/18- 1249 ML No Growth (<1,000 CFU/mL) * ML - Main Lab . END OF REPORT DEPARTMENT OF PATHOLOGY, [address] [place] [address] Bill Robertson M.D. Director [facility] # [id number] 3 Because ethnic data is not always readily available, this report includes an eGFR for both -Americans and non- Americans. The National Kidney Disease Education Program (NKDEP) does not endorse the use of the MDRD equation for patients that are not between the ages of 18 and 70, are , have extremes of body size, muscle mass, or nutritional status, or are non- or non-. According to the National Kidney Foundation, irrespective of diagnosis, the stage of the disease is based on the level of kidney function: Stage Description GFR(mL/min/1.73 m(2)) 1 Kidney damage with normal or decreased GFR 90 2 Kidney damage with mild decrease in GFR 60-89 3 Moderate decrease in GFR 30-59 4 Severe decrease in GFR 15-29 5 Kidney failure <15 (or dialysis) 4 Because ethnic data is not always readily available, this report includes an eGFR for both -Americans and non- Americans. The National Kidney Disease Education Program (NKDEP) does not endorse the use of the MDRD equation for patients that are not between the ages of 18 and 70, are , have extremes of body size, muscle mass, or nutritional status, or are non- or non-. According to the National Kidney Foundation, irrespective of diagnosis, the stage of the disease is based on the level of kidney function: Stage Description GFR(mL/min/1.73 m(2)) 1 Kidney damage with normal or decreased GFR 90 2 Kidney damage with mild decrease in GFR 60-89 3 Moderate decrease in GFR 30-59 4 Severe decrease in GFR 15-29 5 Kidney failure <15 (or dialysis) 5 Because ethnic data is not always readily available, this report includes an eGFR for both -Americans and non- Americans. The National Kidney Disease Education Program (NKDEP) does not endorse the use of the MDRD equation for patients that are not between the ages of 18 and 70, are , have extremes of body size, muscle mass, or nutritional status, or are non- or non-. According to the National Kidney Foundation, irrespective of diagnosis, the stage of the disease is based on the level of kidney function: Stage Description GFR(mL/min/1.73 m(2)) 1 Kidney damage with normal or decreased GFR 90 2 Kidney damage with mild decrease in GFR 60-89 3 Moderate decrease in GFR 30-59 4 Severe decrease in GFR 15-29 5 Kidney failure <15 (or dialysis) 6 Please note: The following may produce a false positive D Dimer test: - Rheumatoid factor greater than 60 IU/ml - Plasma hemoglobin greater than 0.05 gm/dl - Bilirubin greater than 50 mg/dl - Lipids greater than 1000 mg/dl - FDP greater than 20 ug/ml 7 Because ethnic data is not always readily available, this report includes an eGFR for both -Americans and non- Americans. The National Kidney Disease Education Program (NKDEP) does not endorse the use of the MDRD equation for patients that are not between the ages of 18 and 70, are , have extremes of body size, muscle mass, or nutritional status, or are non- or non-. According to the National Kidney Foundation, irrespective of diagnosis, the stage of the disease is based on the level of kidney function: Stage Description GFR(mL/min/1.73 m(2)) 1 Kidney damage with normal or decreased GFR 90 2 Kidney damage with mild decrease in GFR 60-89 3 Moderate decrease in GFR 30-59 4 Severe decrease in GFR 15-29 5 Kidney failure <15 (or dialysis) 8 Verbal to [id number] by [email or web address] at 1836 on 02/14/18. Results read back accurately. Troponin-I testing on Plasma Separator Tubes (PST) has a known false positive rate of 0.20-0.40%. All positive troponins reflex immediate secondary confirmatory testing. 9 Serum levels of PSA measured using the [employer] DXI Hybritech immunoassay should not be interpreted as absolute evidence of the presence or absence of disease. The PSA value should be used in conjunction with other pertinent clinical diagnostic procedures. The values obtained with different assay methods or kits cannot be used interchangeably. 10 Serum levels of PSA measured using the [employer] DXI Hybritech immunoassay should not be interpreted as absolute evidence of the presence or absence of disease. The PSA value should be used in conjunction with other pertinent clinical diagnostic procedures. The values obtained with different assay methods or kits cannot be used interchangeably. Procedures Date Code Description Status 02/14/2018 87439 Electrocardiogram Complete Completed 12/15/2014 22689672 Colonoscopy Completed Encounters Type Date Location Provider Dx Diagnosis Office Visit 02/26/2018 Main Office Bryan Tierney D.O. R07.89 Other chest pain 3:30p R94.31 Abnormal electrocardiogram [ECG] [EKG] N40.0 Benign prostatic hyperplasia without lower urinry tract symp Z98.61 Coronary angioplasty status Office Visit 02/14/2018 3:45p Main Office Bryan Tierney, R07.89 Other chest pain D.O. R94.31 Abnormal electrocardiogram [ECG] [EKG] Office Visit 02/09/2017 12:55p Main Office Bryan Tierney, N40.0 Benign prostatic D.O. hyperplasia without lower urinry tract symp F52.21 Male erectile disorder E78.00 Pure hypercholesterolemia, unspecified Z23 Encounter for immunization Z41.8 Encntr for oth proc for purpose [facility]th [facility] Plan of Treatment Future Appointment(s):03/12/2018 9:45 am - Bryan Tierney D.O. at Main [facility]4702/26/2018 - Bryan Tierney D.O.R07.89 Other chest painFollow up:2 weeks chest pain, abdominal painR94.31 Abnormal electrocardiogram [ECG] [EKG]N40.0 Benign prostatic hyperplasia without lower urinary tract symZ98.61 Coronary angioplasty status
--- OUTSIDE RECORDS SUMMARY | 2018-03-06 16:34 | XMS REPORT | Continuity of Care Document ---
:1940 External Reference #:[id number] Author Name Silvia Cain Care Team Providers Name Role Phone Jeffery Wilson MD Care Team Information Quality Compliance Consultant Unavailable Bryan Tierney DO Primary Care Physician Unavailable Payers Type Date Identification Numbers Payment Provider Subscriber Effective: Policy Number: [id number] [facility] [place] [facility] [place]les 2012 Expires: 2013 PayID: [id number] [facility] [address] [place] [address] Policy Number: [id number] [facility] (Medicare) Reggie Robles PayID: [id number] [place] [address] [place] [id number] Expires: 2016 Policy Number: [id number] Medicare Reggie Chayito Travis PayID: [id number] [address] [place] [address] Advance Directives Description No Information Available Problems [...] Active Tablets 5mg As Unknown 0000 Directed Chancellor 06/21/ Hx Tablets 5-325mg 15tabs 1po q4-6 [...] Available Procedures Date Code Description Status 07/24/2014 46508 Inject Tendon Sheath Or Ligament Aponeurosis Eg Plantar Completed Fascia 01/31/2014 75880 Carpal Tunnel Release Completed 12/19/2013 12500 Nerve Conduction 07-08 Studies Completed 07/12/2012 91237 Rad Exam; Ankle Comp Completed 06/21/2012 72257 Rad Exam; Ankle Comp Completed 06/13/2012 24648 Rad Exam; Ankle Comp Completed 06/05/2012 51695 FX Ankle Trimalleolar W/O Manipulation Completed 06/05/2012 32106 Closed TX Bimalleolar FX W/O Manip Completed Encounters Type Date Location Provider Dx Diagnosis Office Visit 09/15/2016 [facility] Dermatology Eliud Chino MD 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 354.0 Carpal Tunnel Syndrome Office Visit 01/23/2014 11:00a Orthopedic Veronica Brown, 354.0 [facility] [facility] [place] Plan of Treatment 07/24/2014 - Veronica Brown M.D.727.03 [facility] Btpajnaa889.0 Carpal Tunnel SyndromeFollow up:Follow up: As needed
[2018-03-06 16:46] VITALS: BP 118/68
== END 2018-03-06 16:46 | disposition home or self-care (01) ==
LOC: ED 15:34
DX: T83.098A Other mechanical complication of other urinary catheter, initial encounter (principal); R31.9 Hematuria, unspecified; R10.9 Unspecified abdominal pain
CPT/HCPCS: 99282

== ENCOUNTER 2018-03-30 09:45 | Inpatient (IN) | payer OTHER, MEDICARE ==
--- OUTSIDE RECORDS SUMMARY | 2018-03-30 10:00 | XMS REPORT | Continuity of Care Document ---
:1940 External Reference #:[id number] Author Name Malu Souza Care Team Providers Name Role Phone Jeffery Wilson MD Care Team Information Private Sector Executive Unavailable Bryan Tierney DO Primary Care Physician Unavailable Payers Type Date Identification Numbers Payment Provider Subscriber Policy Number: [id number] [facility] (Medicare) Reggie Robles PayID: [id number] [address] Advance Directives Description No Information Available Problems Description No Information Family History Date Family Member(s) Problem(s) Comments Father due to [place] () Mother due to Colon Cancer () Siblings 4 Social History Type Date Description Comments Sex Unknown Marital Status Lives With Spouse Occupation Retired ETOH Use Denies alcohol use Tobacco Use Start: Unknown Patient has never smoked Recreational Drug Use Denies Drug Use Smoking Status Reviewed: 03/20/18 Patient has never smoked Exercise Type/Frequency Exercises rarely walk outside weather permitting Allergies, Adverse Reactions, Alerts Description No Known Drug Allergies Medications Medication Date Status Form Strength Qnty SIG Indications Ordering Provider Atorvastatin / Active Tablets 80mg 90tab once daily Qutaybeh Calcium 0000 s by mouth S. at bedtime Claude Boucher Tamsulosin HCL / Active Capsules 0.4mg daily by Unknown 0000 mouth at bedtime Finasteride / Active Tablets 5mg once daily Unknown 0000 by mouth at bedtime. Aspir-81 0000/ Active Tablets DR 81mg 1 by mouth Unknown 0000 every day Pantoprazole / Active Tablets DR 40mg 1 by mouth Unknown Sodium 0000 twice daily Metoprolol / Active Tablets 25mg 90tab 1/2 tab by Qutaybeh Tartrate 0000 s mouth S. twice a Maghaydah, day M.D. Ferrous Sulfate / Active Tablets 325(65Fe) 1 by mouth Unknown 0000 mg twice daily Plavix / Active Tablets 75mg 90tab 1 by mouth Qutaybeh 0000 s every day SRemington Boucher M.D. Nitroglycerin / Active Tablets 0.4mg 1 sl Unknown 0000 Sub q5mins x3 as needed for chest pain Ciprofloxacin / Active Tablets 500mg 1 by mouth Unknown HCL 0000 twice a day Started on 03/08/18. Three days remaining Ibuprofen 01/31/ Hx Tablets 600mg 60tab 1 pill Nirav 2013 - three Felisa, 03/04/ times a M.D. 2017 day as needed Tramadol HCL 01/23/ Hx Tablets 50mg 60tab 1 tablets Veronica 2013 by mouth Kevin, 03/19/ q6 hours M.D. 2018 as needed pain [place] 06/21/ Hx Tablets 5-325mg 15tab 1po q4-6 Veronica 2012 - hr prn Kevin, 01/17/ pain M.D. 2013 Ibuprofen / Hx Tablets 600mg As Unknown 0000 - Directed 2018 Amlodipine / Hx Tablets 5mg 1 by mouth Unknown Besylate 0000 - every day 2017 Medications Administered in Office Medication Date Status Form Strength Qnty SIG Indications Ordering Provider Depomedrol Administered Injection Veronica 80MG 015 Claude Brown Immunizations Description No Information Available Vital Signs Date Vital Result Comment 03/20/2018 10:19am Height 70 inches 5'10" Weight 197.12 lb with shoes Heart Rate 76 /min rt radial, regular BP Systolic Sitting 120 mmHg lt arm BP Diastolic Sitting 65 mmHg lt arm BMI (Body Mass Index) 28.3 kg/m2 Ejection Fraction 50-55% echo 02/15/18 03/05/2018 10:27am Height 70 inches 5'10" Weight [...] Information Available Procedures Date Code Description Status 03/20/2018 65682 EKG Tracing & Interpretation Completed 03/05/2018 85473 EKG Tracing & Interpretation Completed 02/16/2018 61212 Left Heart Cath. Incl S/I Coronaries, Angio S/I V Gram If Completed Done 02/16/2018 76776 EKG, Interpretation Only Completed 02/15/2018 35626 ECHO Transthorasic Realtime 2D W Doppler & Color Flow Hosp Completed 02/15/2018 25729 Treadmill Interp/Report Only Completed 02/15/2018 49214 Stress Test Supervsn W/Out I/R Completed 07/24/2014 76932 Inject Tendon Sheath Or Ligament Aponeurosis Eg Plantar Completed Fascia 01/31/2014 61522 Carpal Tunnel Release Completed 12/19/2013 59224 Nerve Conduction 07-08 Studies Completed 07/12/2012 19082 Rad Exam; Ankle Comp Completed 06/21/2012 04041 Rad Exam; Ankle Comp Completed 06/13/2012 30203 Rad Exam; Ankle Comp Completed 06/05/2012 44633 FX Ankle Trimalleolar W/O Manipulation Completed 06/05/2012 20177 Closed [place] Bimalleolar FX W/O Manip Completed Encounters Type Date Location Provider Dx Diagnosis Office Visit 03/05/2018 [facility] Emmie Gi, I10 Essential ( primary) 10:30a Of [employer] Tra[employer] Techn[employer]VERTISING [employer] ROTATOR hypertension I25.10 Athscl heart disease of [place] coronary artery w/o ang pctrs E78.5 Hyperlipidemia, unspecified I71.2 Thoracic aortic aneurysm, without rupture Office Visit 02/21/2018 9:45a [facility] Laura A41.9 Sepsis, Assoc,luis fernando Fay M.D. unspecified Hospitalists organism N39.0 Urinary tract infection, site not specified N40.1 Benign prostatic hyperplasia with lower urinary tract symp R33.8 Other retention of urine I10 Essential (primary) hypertension Office Visit 02/19/2018 [facility] Gallito A41.9 Sepsis, 9:20a Assoc,pc Patel, N.P. unspecified Hospitalists organism R33.8 Other retention of urine N40.1 Benign prostatic hyperplasia with lower urinary tract symp I10 Essential (primary) hypertension I25.10 Athscl heart disease of [place] coronary artery w/o ang pctrs Office Visit 02/17/2018 [facility] Qutaybeh S. I25.10 Athscl heart 10:09a Claude Boucher disease of [place] coronary artery w/o ang pctrs Office Visit 02/17/2018 [facility] Jacquelyn Noble, I10 Essential 11:21a Assoc,pc N.P. (primary) Hospitalists hypertension I21.4 Non-St elevation (Nstemi) myocardial infarction I25.10 Athscl heart disease of [place] coronary artery w/o ang pctrs D64.9 Anemia, unspecified Office 02/16/2018 [facility] Qutaybeh S. R94.31 Abnormal Visit 8:48a Cardiology Claude Boucher electrocardiogram [ECG] [EKG] R07.9 Chest pain, unspecified I25.10 Athscl heart disease of [place] coronary artery w/o ang pctrs Office Visit 02/16/2018 11:21a [facility] Jacquelyn Noble, I10 Essential ( primary) Assoc,pc N.P. hypertension Hospitalists I21.4 Non-St elevation (Nstemi) myocardial infarction E78.5 Hyperlipidemia, unspecified N40.0 Benign prostatic hyperplasia without lower urinry tract symp Office Visit 02/15/2018 4:52p [facility] Qutaybeh S. R07.9 Chest pain, Cardiology Claude Boucher unspecified R79.89 Other specified abnormal findings of blood chemistry R94.39 Abnormal result of other cardiovascular function study E78.5 Hyperlipidemia, unspecified Z82.49 Family hx of ischem heart dis and oth dis of the circ sys D64.9 Anemia, unspecified Office Visit 02/15/2018 4:03p [facility] Rogelio Raya, I21.4 Non- St elevation Of [employer] AT [place] M.DRemington, FACC, (Nstemi) FSCAI myocardial infarction D64.9 Anemia, unspecified N42.9 Disorder of prostate, unspecified Office Visit 02/15/2018 11:21a [facility] Katelyn Felicia, I21.3 St elevation Assoc,pc ADVERTISING DISPLAY ROTATOR (Stemi) Hospitalists myocardial infarction of [facility] site D50.9 Iron deficiency anemia, unspecified K27.9 Peptic ulc, site unsp, unsp as ac or chr, w/o hemor or perf E78.5 Hyperlipidemia, unspecified Office Visit 02/14/2018 11:20a [facility] Gwen R07.9 Chest pain, Assoc,pc Rooth, DO unspecified Hospitalists R79.89 Other specified abnormal findings of blood chemistry E78.5 Hyperlipidemia, unspecified Office Visit 09/15/2016 9:30a [facility] Eliud Lealzer, 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 354.0 Carpal Tunnel Syndrome Office Visit 01/23/2014 11:00a Orthopedic Veronica Brown, 354.0 Carpal Tunnel Services Of Claude Syndrome C.M.A. Plan of Treatment 03/20/2018 - Sommer Boucher M.D.I10 Essential (primary) [id number] Atherosclerotic heart disease of [place] coronary artery withFollow up:8 months ovE78.5 Hyperlipidemia, [id number] Thoracic aortic aneurysm, without rupture
[2018-03-30 10:14] LABS: ABS Basophils 0.1 10^3/ul (0-0.2); ABS Eosinophils 0.1 10^3/ul (0-0.6); ABS Lymphocytes 0.7 10^3/ul (1.0-4.8); ABS Monocytes 0.5 10^3/ul (0-0.8); ABS Neutrophils 5.3 10^3/ul (1.5-7.7); ABS Nucleated RBC 0 10^3/ul; Eosinophil % 1.6 %; Hematocrit 23 % (42-52); Hemoglobin 7.3 g/dl (14.0-18.0); Lymphocyte % 10.4 %; Mean Corpuscular HGB Conc 32 g/dl (31-36); Mean Corpuscular Hemoglobin 24 pg (27-31); Mean Corpuscular Volume 77 fL (80-94); Mean Platelet Volume 7.3 fL (7.4-10.4); Nucleated Red Blood Cells % 0.1; Platelet Count 415 10^3/ul (150-450); Red Blood Count 2.98 10^6/ul (4.00-5.40); Red Cell Distribution Width 16 % (10.5-15); White Blood Count 6.6 10^3/ul (3.5-10.8)
[2018-03-30 10:30] LABS: Activated Partial Thrombo Time 29.4 seconds (26.0-36.3); INR 1.16 (0.77-1.02)
[2018-03-30 10:32] LABS: ALT 9 U/L (7-52); AST 12 U/L (13-39); Albumin 3.3 g/dL (3.2-5.2); Albumin/Globulin Ratio 0.9 (1-3); Alkaline Phosphatase 103 U/L (34-104); Anion Gap 8 mmol/L (2-11); BUN/Creatinine Ratio 21.3 (8-20); Blood Urea Nitrogen 19 mg/dL (6-24); CO2 Carbon Dioxide 25 mmol/L (22-32); Calcium 9.1 mg/dL (8.6-10.3); Chloride 106 mmol/L (101-111); EGFR Non-African American 82.7 (>60); Globulin 3.6 g/dL (2-4); Glucose 168 mg/dL (70-100); Magnesium 1.9 mg/dL (1.9-2.7); Potassium 3.6 mmol/L (3.5-5.0); Sodium 139 mmol/L (135-145); Total Protein 6.9 g/dL (6.4-8.9)
--- NOTE | 2018-03-30 10:36 | ED ---
HPI Chest Pain - HPI Summary HPI Summary: The pt is a 77 year old male who is presenting to the [facility] accompanied by his with a chief complaint of chest pain. The onset of the chest pain is reported to be this morning. The pain is described to be on the left side. Pertinent PMHx includes [place] on 02/14/18. The patient's states that no stent was placed, and the patient was seen by Dr. Raya. The patient was able to walk this morning without difficulty. After noticing the chest pain, the patient took a NTG as well as aspirin (81 mg) which alleviated some of the pain. Upon consultation with PCP earlier this morning, the patient was recommended to enter the [facility]. The pain is relatively worse than the chest pain felt back in February. Symptoms reported include dizziness. No pain radiates to the left arm. 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 PSHx includes back surgery in 1999. The pain is reported to be a 8/10 initially. - History of Current Complaint Chief Complaint: EDChestPainROMI Time Seen by Provider: 03/30/18 09:53 Hx Obtained From: Patient Onset/Duration: Started Hours Ago - This morning Initial Severity: Moderate Current Severity: Moderate Pain Intensity: 8 Pain Scale Used: 0-10 Numeric Chest Pain Location: Left Lateral Chest Pain Radiates: No Aggravating Factor(s): Nothing Alleviating Factor(s): NTG 123, Other: - Aspirin Associated Signs and Symptoms: Positive: Chest Pain - Left sided, Dizziness, Other: - Negative left arm pain - Additional Pertinent History Primary Care Physician: SINA - Allergy/Home Medications Allergies/Adverse Reactions: Allergies Allergy/AdvReac Type Severity Reaction Status Date / Time No Known Allergies Allergy Verified 03/30/18 09:50 PMH/Surg Hx/FS Hx/Imm Hx Endocrine/Hematology History: Denies: Hx Diabetes Cardiovascular History: Reports: Hx Angina, Hx Hypercholesterolemia, Other Cardiovascular Problems/Disorders - [place] a week ago Denies: Hx Coronary Artery Disease, Hx Hypertension, Hx Myocardial Infarction , Hx Valvular Heart Disease Respiratory History: Denies: Hx Asthma, Hx Chronic Obstructive Pulmonary Disease (COPD) Sensory History: Reports: Hx Contacts or Glasses - READING GLASSES Denies: Hx Hearing Aid Opthamlomology History: Reports: Hx Contacts or Glasses - READING GLASSES - Surgical History Surgery Procedure, Year, and Place: LUMBAR FUSION [place] [facility] [place]. BILAT CATARACT 2010 [facility] [place] Hx Anesthesia Reactions: No Infectious Disease History: No Infectious Disease History: Denies: Traveled Outside the [place] in Last 30 Days - Family History Known Family History: Positive: Cardiac Disease - [place] (father at 57 y/o), Other - [place] (father at 57 y/o) - Social History Occupation: Retired Lives: With Family Alcohol Use: None Substance Use Type: Reports: None Smoking Status (MU): Never Smoked Tobacco Review of Systems Constitutional: Negative Eyes: Negative ENT: Negative Positive: Chest Pain - Left sided Respiratory: Negative Gastrointestinal: Negative Genitourinary: Negative Musculoskeletal: Other - Negative Left Arm pain Positive: Other - Negative difficulty walking Skin: Negative Neurological: Other - Dizziness Psychological: Normal All Other Systems Reviewed And Are Negative: Yes Physical Exam - Summary Physical Exam Summary: GENERAL: Patient is a well-developed and nourished Male who is lying comfortable in the stretcher. Patient is not in any acute respiratory distress. HEAD AND FACE: Normocephalic EYES: PERRLA, EOMI x 2. EARS: Hearing grossly intact. MOUTH: Oropharynx within normal limits. NECK: Supple, trachea is midline, no adenopathy, no JVD, no carotid bruit. CHEST: Symmetric, no tenderness at palpation LUNGS: Clear to auscultation bilaterally. No wheezing or crackles. CVS: Regular rate and rhythm, S1 and S2 present, no murmurs or gallops appreciated. ABDOMEN: Soft, non-tender. Bowel sounds are normal. No abdominal abnormal pulsations. EXTREMITIES: Full ROM in all major joints, no edema, no cyanosis or clubbing. NEURO: Alert and oriented x 3. No acute neurological deficits. Speech is normal and follows commands. SKIN: Dry and warm Rectal Exam: no gross blood in rectum, sample sent to lab. Triage Information Reviewed: Yes Vital Signs On Initial Exam: Initial Vitals Temp Pulse Resp BP Pulse Ox 97.1 F 76 16 106/79 99 03/30/18 09:47 03/30/18 09:47 03/30/18 09:47 03/30/18 09:47 03/30/18 09:47 Vital Signs Reviewed: Yes Diagnostics - Vital Signs Vital Signs Temp Pulse Resp BP Pulse Ox 03/30/18 09:47 97.1 F 76 16 106/79 99 - Laboratory Lab Results: Lab Results 03/30/18 Range/Units 10:02 WBC 6.6 (3.5-10.8) 10^3/ul RBC 2.98 L (4.00-5.40) 10^6/ul Hgb 7.3 L (14.0-18.0) g/dl Hct 23 L (42-52) % MCV 77 L (80-94) fL MCH 24 L (27-31) pg MCHC 32 (31-36) g/dl RDW 16 H (10.5-15) % Plt Count 415 (150-450) 10^3/ul MPV 7.3 L (7.4-10.4) fL Neut % (Auto) 79.8 % Lymph % (Auto) 10.4 % [place] % (Auto) 7.2 % Eos % (Auto) 1.6 % Baso % (Auto) 1.0 % Absolute Neuts (auto) 5.3 (1.5-7.7) 10^3/ul Absolute Lymphs (auto) 0.7 L (1.0-4.8) 10^3/ul Absolute Monos (auto) 0.5 (0-0.8) 10^3/ul Absolute Eos (auto) 0.1 (0-0.6) 10^3/ul Absolute Basos (auto) 0.1 (0-0.2) 10^3/ul Absolute Nucleated RBC 0 10^3/ul Nucleated RBC % 0.1 Result Diagrams: 03/30/18 10:02 03/30/18 10:02 Lab Statement: Any lab studies that have been ordered have been reviewed, and results considered in the medical decision making process. - Radiology Chest X-ray Radiology Interpretation Completed By: Radiologist - CXR reveals, per radiologist , NO ACTIVE CARDIOPULMONARY DISEASE. ED physician has reviewed this radiology report. - EKG 0955 EKG Rhythm: Sinus Rhythm - 75 bpm Summary of EKG Findings: EKG taken at 0955 reveals 75 bpm with NSR with normal axis as per ED Physician. Chest Pain Course/Dx - Course Course Of Treatment: The patient is a 77 year old male who is accompanied by his in the [facility] with a chief complaint of chest pain. The Patient has a hx of [place] as recent as February 14, 2018. Upon arriving in the [facility], the pt received an EKG. Hemoglobin was noted to be 7.3 (low) which is down from patient 's baseline of 10. He is ordered to transfuse 2 Units of pRBC. A chest X-ray was also taken in the [facility]. We consulted patient care with Dr. Plunkett and he accepted patient care. We discussed results with the patient. The patient will be admitted and the patient agrees with this plan. The dx will be Anemia and Chest pain. - Diagnoses Provider Diagnoses: Chest pain, Anemia - Provider Notifications Discussed Care Of Patient With: Benedict Plunkett Time Discussed With Above Provider: 10:50 Instructed by Provider To: Admit As Observation Discharge - Sign-Out/Discharge Documenting (check all that apply): Patient Departure - Admitted to the [facility] - Discharge Plan Condition: Stable Disposition: ADMITTED TO [facility] Referrals: Bryan Tierney DO [Primary Care Provider] - - Billing Disposition and Condition Condition: STABLE Disposition: Admitted to [facility] - Attestation Statements Document Initiated by Scribe: Yes Documenting Scribe: Tin Marsh Provider For Whom Rayna is Documenting (Include Credential): Dr. Coby Le Scribmiguel Attestation: Tin Razo scribed for Dr. Coby Le on 03/30/18 at 1143. Scribe Documentation Reviewed: Yes Provider Attestation: The documentation as recorded by the Tin harvey accurately reflects the service I personally performed and the decisions made by Dr. Coby salcedo Status of Scribe Document: Viewed
[2018-03-30] MEDS ORDERED: NS 0.9% 1000 ML* 1,000 ML IV ONE (10:40)
[2018-03-30] MEDS ORDERED: Ondansetron INJ* 2 MG/ML VIAL IV PRN (12:03)
[2018-03-30] MEDS ORDERED: Acetaminophen TAB* 325 MG PO PRN (12:03)
[2018-03-30] MEDS ORDERED: Nitroglycerin TAB 0.4 MG* 0.4 MG TAB SL PRN (12:06)
[2018-03-30] MEDS ORDERED: NS 0.9% 1000 ML* 1,000 ML IV SCH (12:30)
[2018-03-30] MEDS: Pantoprazole* 80 mg IN NS 80 MG/250 ML BAG IVPB SCH (12:32)
[2018-03-30 12:37] LABS: Urine Appearance Clear; Urine Bacteria Absent (Absent); Urine Bilirubin Negative (Negative); Urine Blood 2+ (Negative); Urine Color Yellow; Urine Glucose Negative (Negative); Urine Ketones Negative (Negative); Urine Nitrite Positive (Negative); Urine Protein Negative (Negative); Urine Red Blood Cell Trace(0-2/hpf) (Absent); Urine Specific Gravity 1.009 (1.010-1.030); Urine Squamous Epithelial Cell Present (Absent); Urine Urobilinogen Negative (Negative); Urine White Blood Cell Trace(0-5/hpf) (Absent)
[2018-03-30 13:49] LABS: Ferritin 14.9 ng/mL (24-336)
[2018-03-30 13:59] LABS: Total Iron Binding Capacity 357 mcg/dL (250-450); Transferrin 255 mg/dL (203-362)
[2018-03-30 14:00] LABS: % Iron Saturation 4 % (15-55); Iron < 15 ug/dL (50-212)
--- NOTE | 2018-03-30 14:49 | HP ---
CC: Dr. Bryan Tierney; Dr. Sommer Boucher * ADMISSION HISTORY AND PHYSICAL: DATE OF ADMISSION: 03/30/18 PRIMARY CARE PROVIDER: Dr. Bryan Tierney. MY ATTENDING WHILE IN THE HOSPITAL: Dr. Parveen Plunkett.* (DICTATED BY PABLO MERLOS) SURGICAL TECHNICIAN: Dr. Sommer Boucher. CHIEF COMPLAINT: Chest pain x2 hours. HISTORY OF PRESENT ILLNESS: Mr. Robles is a 77-year-old male with past medical history significant for hypertension, hyperlipidemia, coronary artery disease with NSTEMI in February of 2018, who for the past several months has been having dark stools with progressive worsening in his energy level but without deborah dyspnea on exertion and preserved exercise tolerance, who this morning was feeling at his baseline when he suddenly began to have sharp pain in his chest similar to when he had NSTEMI in February, but without radiation to his arm with associated shortness of breath without nausea or diaphoresis. The patient has been having abdominal pain in his epigastric region for several months, which is relieved with food, associated with nausea and has been constant, described as annoying. The patient has a long history of taking ibuprofen for back pain, which was stopped in approximately December of 2017; however, the patient was then started on aspirin and Plavix in February of 2018 for maximal medical management for severe coronary artery disease. The patient has been going to cardiac rehab and has not had any chest pain there. The patient has not had an upper endoscopy ever in his life. The patient had a colonoscopy 3 years ago, which was unremarkable. The patient does have a strong family history of colon cancer, but was told by his belt turner at that time that he did not any more colonoscopies. The patient has been taking pantoprazole 40 mg b.i.d., but ran out a week ago. The patient ate breakfast this morning approximately 8:30 soon before his chest pain began. The patient denies any hematuria, fevers, chills, dizziness on standing. No orthopnea. No swelling in his legs. No other signs of heart failure. The patient has followed up with his instrument panel assembler twice since his NSTEMI and has had no issues. The patient recently stopped his amlodipine for hypotension. Due to concern for symptomatic anemia and ongoing GI bleed with a positive stool occult blood in the emergency department and a hemoglobin of 7.3 with a microcytic pattern, we were asked to admit the patient for transfusion and close monitoring. The patient is currently asymptomatic and his pain went away with nitroglycerin. PAST MEDICAL HISTORY: Coronary artery disease, recent NSTEMI, thoracic aortic aneurysm, hyperlipidemia, rash, iron-deficiency anemia, hypertension, BPH with history of UTI. PAST SURGICAL HISTORY: Cardiac catheterization in February 2018, back surgery in 1999. MEDICATIONS: 1. Lipitor 80 mg p.o. daily. 2. Aspirin 81 mg p.o. daily. 3. Tamsulosin 0.4 mg p.o. nightly. 4. Finasteride 5 mg p.o. daily. 5. Pantoprazole 40 mg p.o. b.i.d., has not been taken in a week. 6. Metoprolol tartrate 12.5 mg p.o. b.i.d. 7. Ferrous sulfate 325 mg p.o. b.i.d. 8. Plavix 75 mg p.o. daily. 9. Nitroglycerin 0.4 mg p.o. q.5 minutes as needed for chest pain. ALLERGIES: No known drug allergies. FAMILY HISTORY: The patient's father of an ND and had colon cancer. The patient's mother also had colon cancer. The patient also had a brother who of colon cancer at 63. SOCIAL HISTORY: The patient denies ever smoking. The patient does not drink. The patient does not use illicit drugs. 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 The patient is and has 4 children. The patient's surrogate decision maker will be his , Chana Robles. REVIEW OF SYSTEMS: A 14-point review of systems was reviewed and is negative except as above in the HPI. PHYSICAL EXAMINATION GENERAL: The patient is a 77-year-old pale male, who appears stated age and sitting comfortably in bed, in no acute distress. VITAL SIGNS: Temperature 97.1, pulse rate 76, respiratory rate 16, oxygen saturation 98% on room air, blood pressure 106/79. HEENT: Head: Normocephalic, atraumatic. Sclerae anicteric. No conjunctival injection. Nasal mucosa moist. Oral mucosa moist. No pharyngeal erythema, discharge or exudate. NECK: Supple, nontender. No lymphadenopathy. No carotid bruits auscultated. No JVD. RESPIRATORY: Clear to auscultation bilaterally. No wheezes, rales or rhonchi. Good air exchange bilaterally. CARDIAC: Regular rate and rhythm. No clicks, murmurs, gallops, or rubs. Pulses are 2+ in the bilateral dorsalis pedis, posterior tibialis, and radial areas. ABDOMEN: Soft, nontender, nondistended. Bowel sounds present and normoactive in all 4 quadrants. No hepatosplenomegaly. No abdominal bruits auscultated. No hepatojugular reflux. GENITOURINARY: No suprapubic or CVA tenderness. NEUROLOGIC: Cranial nerves II through XII intact. No focal deficits. Alert and oriented x3. PSYCHIATRIC: Pleasant and cooperative. SKIN: Clean, dry, and intact. No rash. DIAGNOSTIC STUDIES/LAB DATA: White blood cell count 6.6, hemoglobin 7.3, hematocrit 23, MCV 77, MCH 24, platelet count 415. INR 1.16, aPTT 29.4. Sodium 139, potassium 3.6, chloride 106, carbon dioxide 25, anion gap 8, BUN 19 , creatinine 0.89, glucose 168, lactic acid 2.2, calcium 9.1, magnesium 1.9. Bilirubin 0.5, AST 12, ALT 9, alkaline phosphatase 103. Troponin I of 0.00, BNP 84. Total protein 6.9, albumin 3.3, globulin 3.6. Studies: Chest x-ray shows no acute cardiopulmonary disease. Electrocardiogram shows normal sinus rhythm. No ST segment changes. Normal axis. Otherwise unremarkable, unchanged from previous exam. ASSESSMENT AND PLAN/IMPRESSION: Mr. Robles is a 77-year-old male with past medical history significant for coronary artery disease, iron-deficiency anemia , hyperlipidemia, hypertension, who presents to the emergency department with chest pain, which was relieved by nitroglycerin and has not recurred. In the setting of severe anemia with a hemoglobin of 7.2 with an iron deficient pattern , the patient will be admitted to the hospital, transfused and will be seen in consultation by Gastroenterology and Cardiology to determine the best course of action going forward with regards to his cardiac medications and his GI bleeding. 1. Presumed upper gastrointestinal bleed. The patient had stool occult blood. The patient has had melena for several months. The patient's hemoglobin over that time has declined from approximately 12 to 7.3. The patient has been on oral iron. The patient will have repeat iron studies drawn as well as a B12 and folate and reticulocyte count. The patient will have 2 units transfused now. The patient will be seen in consultation by Dr. Ze Goodwin of Gastroenterology for consideration of EGD to help clarify the patient's diagnosis. The patient's aspirin and Plavix will be held at this time. The patient will be monitored closely for chest pain. The patient will have a pantoprazole drip, sucralfate and Pepcid b.i.d. Pending the patient's iron studies, the patient may be a candidate for IV iron as he does not appear to be responding well to oral iron. 2. Chest pain. The patient's chest pain is likely driven by his anemia. The patient has known coronary artery disease. The patient will be continued on his statin and metoprolol to avoid rebound angina. The patient will have nitroglycerin available for ongoing chest pain. The patient will have a repeat echocardiogram for any wall motion abnormalities. The patient will have troponins trended. This case has been discussed with Dr. Sommer Boucher of Cardiology, who is the patient's outpatient instrument panel assembler, who recommends no further cardiac testing beyond this. 3. Anemia, presumed iron deficiency. The patient's anemia appears to be chronic with a microcytic pattern. This is likely from ongoing bleeding from an upper gastrointestinal ulcer. The patient will have endoscopy as above. The patient had colonoscopy 3 years ago, which was negative; however, the patient has a very strong family history of colon cancer and if the patient has no ulcer on upper endoscopy, a colonoscopy should be considered. The patient will be continued on oral iron. The patient might possibly benefit from IV iron , but depending on iron studies. The patient will also have a urinalysis as he has previously been known to have hematuria and the patient's aspirin and Plavix will be held at this time. The patient has not received a stent when he was cathed in February. This has been cleared with the patient's instrument panel assembler, Dr. Boucher. As above, the patient will be transfused 2 units now and will be transfused again as needed with a hemoglobin goal of 8. 4. Hypertension. The patient is borderline hypotensive at this time. We will monitor closely. The patient will have fluids at 150 mL an hour and be transfused. The patient's metoprolol will be continued. 5. Coronary artery disease. Continue the patient's statin. Hold aspirin. Nitroglycerin will be available as needed. No further cardiac testing at this time except for update echocardiogram per Cardiology. Continue metoprolol in the setting of chest pain. 6. DVT prophylaxis: The patient will have SCDs only in the setting of GI bleeding. 7. FEN: The patient will be n.p.o. at this time for a possible EGD later today. The patient will have fluids at 150 mL an hour. 8. Disposition: The patient is admitted inpatient with an estimated length of stay greater than 2 days. 9. Code status: The patient would like to be a full code. TIME SPENT: Approximately 90 minutes was spent on the admission of this patient , 30 of which was spent [id number] with the patient obtaining history and physical and discussing treatment plan. Plan was discussed with my attending, Dr. Parveen Plunkett, and he is in agreement. PABLO MERLOS [id number]/CPS #: [id number] JOSE
--- NOTE | 2018-03-30 15:37 | ECHO ---
Patient: ANSLEY POLLARD [facility] Rec#: [id number] : 1940 Date: 03/30/2018 Age: 77y Height: 175 cm / 68.9 in Weight: 86.2 kg / 190.0 lbs Sex: M BSA: 2 Room#: [facility] Admit Date#: 03/30/2018 Type: Inpatient Referring: Shelton Whitaker Reading: Sommer Boucher MD Receiving And Processing Supervisor: Lea Crespo RN RDCS CC: Bryan Tierney MD Transthoracic Echocardiogram Indication: Chest pain BP: 147/79 HR: 55 Rhythm: Bradycardia Findings History: CT 02/14/2018, HLD Technical Comments: The study quality is fair. Left Ventricle: The left ventricular chamber size is normal. Mild to moderate concentric left ventricular hypertrophy is observed. There is increased basal septal hypertrophy noted without evidence of an increased gradient across the left ventricular outflow tract. Global left ventricular wall motion and contractility are within normal limits. Left ventricular systolic function is at the lower limits of normal. The estimated ejection fraction is 50-55%. There is no consistent Doppler evidence of clinically significant diastolic dysfunction. Left Atrium: The left atrial chamber size is normal. Right Ventricle: The right ventricle is slightly dilated. The right ventricular global systolic function is low normal. Right Atrium: The right atrial cavity size is normal. Aortic Valve: The aortic valve is trileaflet. The aortic valve leaflets are mildly thickened. There is a trace of aortic regurgitation. There is no evidence of aortic stenosis. Mitral Valve: The mitral valve leaflets are mildly thickened. There is a trace of mitral regurgitation. There is no evidence of mitral stenosis. Tricuspid Valve: The tricuspid valve leaflets are normal. There is trace tricuspid regurgitation. There is evidence of borderline pulmonary hypertension. Pulmonic Valve: The pulmonic valve appears normal. There is mild pulmonic regurgitation. There is no pulmonic stenosis. Pericardium: There is no significant pericardial effusion. Aorta: There is mild dilatation of the ascending aorta. There is no dilatation of the aortic arch. There is no dilation of the aortic root. Pulmonary Artery: The main pulmonary artery is not well visualized. Venous: The venous system is not well visualized. The inferior vena cava is dilated. There is less than 50% respiratory change in the inferior vena cava dimension. Summary: There are no significant changes when compared to the previous study done on 02/15/2018, no overt significant changes. Conclusions The left ventricular chamber size is normal. Mild to moderate concentric left ventricular hypertrophy is observed. There is increased basal septal hypertrophy noted without evidence of an increased gradient across the left ventricular outflow tract. The estimated ejection fraction is 50-55%. The right ventricle is slightly dilated. There is a trace of aortic regurgitation. There is a trace of mitral regurgitation. There is trace tricuspid regurgitation. There is mild pulmonic regurgitation. There is mild dilatation of the ascending aorta. Measurements Name Value Normal Range RVDdMajor (2D) 4.5 cm (2.2 - 4.4) RAd ISD 4CH 4.8 cm (3.4 - 4.9) RA (A4C)W 4.2 cm (2.9 - 4.6) IVSd (2D) 1.3 cm (0.6 - 1) LVPWd (2D) 1.3 cm (0.6 - 1) LVIDd (2D) 4.9 cm (3.6 - 5.4) LVIDs (2D) 3.4 cm - LV FS (2D) 31 % (25 - 45) Aortic Annulus 2.4 cm (1.4 - 2.6) Ao root diameter (2D) 3.2 cm (2.1 - 3.5) Ascending Ao 3.7 cm (2.1 - 3.4) Aortic arch 2.9 cm (1.8 - 3.4) LA dimension (AP) 2D 3.9 cm (2.3 - 3.8) LAd ISD 4CH 5 cm (2.9 - 5.3) LA ISD 4CH W 4.3 cm (2.5 - 4.5) Name Value Normal Range LA ESV BP (A/L) index 30 ml/m2 - Name Value Normal Range MV E-wave Vmax 0.62 m/sec - MV deceleration time 275 msec - MV A-wave Vmax 0.82 m/sec - MV E:A ratio 0.8 ratio - LV septal e' Vmax 0.09 m/sec - LV lateral e' Vmax 0.1 m/sec - LV E:e' septal ratio 6.9 ratio - LV E:e' lateral ratio 6.2 ratio - Name Value Normal Range AV Vmax 1.5 m/sec - AV VTI 34.3 cm - AV peak gradient 8 mmHg - AV mean gradient 5 mmHg - LVOT Vmax 0.82 m/sec - LVOT VTI 18.4 cm - LVOT peak gradient 3 mmHg - LVOT mean gradient 2 mmHg - XENIA Vmax 0.54 m/sec - Name Value Normal Range TR Vmax 2.2 m/sec - TR peak gradient 19 mmHg - RAP 15 mmHg - RVSP 34 mmHg - IVC diameter 2.3 cm - Name Value Normal Range PV Vmax 0.78 m/sec -
[2018-03-30] MEDS ORDERED: Midazolam* 1 MG/ML 10 ML VIAL (10 MG) ONE (15:39)
[2018-03-30] MEDS ORDERED: fentaNYL* 50 MCG/ML 2 ML VIAL (100 MCG VIAL) ONE (15:39)
[2018-03-30] MEDS ORDERED: PEG 3000 GI LAVAGE* 1 GALLON PO ONE (16:48)
[2018-03-30] MEDS: Sucralfate SUSP 1 GM/10 ml 10 ML UDC PO SCH (17:53)
[2018-03-30 19:35] LABS: Corrected Retic Count 1.4 % (0.5-1.5); Hematocrit 25 % (42-52); Hematocrit for Retic CNT 25 % (42-52); Hemoglobin 8.1 g/dl (14.0-18.0); Immature Retic Fraction 0.48; RBC Retic Count 3.11 10^6/ul (4.6-6.2)
[2018-03-30] MEDS: Metoprolol Tartrate TAB* 25 MG PO SCH (20:17)
[2018-03-30] MEDS: Finasteride TAB* 5 MG PO SCH (20:17)
[2018-03-30] MEDS: Atorvastatin* 80 MG TAB PO SCH (20:17)
[2018-03-30] MEDS: Ferrous Sulfate TAB* 325 MG PO SCH (20:18)
[2018-03-30] MEDS: Famotidine IV* 10 MG/ML 2 ML (20 mg) IV SCH (20:18)
--- NOTE | 2018-03-30 20:52 | CONS ---
CC: Hospitalist Service; Dr. Sommer Boucher; Dr. Tierney CARDIOLOGY CONSULT: DATE OF CONSULT: 03/30/18 HISTORY OF PRESENT ILLNESS: I was asked by Hospitalist Service to see this 77-year- old male patient who presented to the emergency room with an episode of chest pain, needed to take sublingual nitrogl ycerin, apparently was found to have a hemoglobin of 7.3, hematocrit 23. GI was called. His troponi n was 0, the first one. He did take sublingual nitroglycerin x1 and he is chest pain free. I was ca lled because he does have known history of coronary artery disease. On 02/15/18, he had a cardiac ca th by Dr. Raya, that showed him to have total occlusion of a small- caliber vessel of the posterior descending artery of the RCA with collaterals from the septal group contract analyst. He also was found to have 80% to 90% stenosis of a small- caliber vessel obtuse marginal one of the left for medical treatment . He has been maintained on aspirin, Plavix, beta-musa, and Lipitor. At some point, he could not tolerate Norvasc because of low blood pressure and he has been doing well relatively so far. He giv es black stool, but that was confusing to the patient and family because he is also on iron supplemen t. The black stool had been going on for a while. He gives no nausea, no vomiting, no fever, no chi lls, no skin rash, no tremors, no hematochezia, no abdominal pain, no syncope, no orthopnea, no swell ing in the lower extremities, no chest pain at the present time is appreciated. PAST MEDICAL HISTORY: Includes enlarged prostate, coronary artery disease, hyperlipidemia, mildly di lated thoracic aorta. PAST SURGICAL HISTORY: Back surgery in the year 1999. His echo was done back in February 2018 with an EF 50% to 55% and [id number] inferior wall hypokinesis. Cardiac cath done in February 2018. MEDICATIONS: His medications as an outpatient include: 1. Lipitor 80 mg daily. 2. Finasteride 5 mg daily. 3. Aspirin 81 mg daily. 4. Pantoprazole 40 mg twice a day. 5. Metoprolol 25 mg half twice a day. 6. Ferrous sulfate 325 mg twice a day. 7. Plavix 75 mg daily. 8. Nitroglycerin 0.4 mg sublingual. ALLERGIES: Allergic to no known drug allergies. FAMILY HISTORY: His father of MD at age 57. SOCIAL HISTORY: He is , lives with his . He is retired. No history of smoking, no drink ing, no illicit drug use. REVIEW OF SYSTEMS: His review of all other systems essentially is negative. PHYSICAL EXAM: On exam, he is pale, but he is chest pain-free. His vitals; blood pressure is 122/73 , pulse is 56, he is in sinus rhythm, respiratory rate 23, temperature 99.1. Head and Neck Exam: No rmocephalic and atraumatic head. Ears, Nose and Throat: Essentially benign. Neck: Supple. JVP is not elevated. No carotid bruits. No masses in the neck are appreciated. Chest: Clear to ausculta tion. No rales. No wheeze. No added sounds appreciated. Heart: Normal S1 and S2. No added sound s, no gallops, and no rubs. Abdomen: Benign. Positive bowel sounds. Extremities: No edema, no cy anosis, no clubbing. Skin Exam: Normal. Psych: Normal affect and mood. COMMERCIAL FISHER: No focal deficits ap preciated. DIAGNOSTIC STUDIES/LAB DATA: His labs showed the following: Sodium 139, potassium 3.6, chloride 106 , total CO2 of 25, BUN 19, creatinine 0.89, magnesium 1.9, AST 12, CRP 12.3. Albumin and globulin no rmal. BNP 64, troponin 0. White blood cells 6.6, hemoglobin 7.3, hematocrit 23, and platelets 415. His EKG is in normal sinus rhythm. Heart rate 75 beats per minute, nonspecific T abnormality, isolat ed Q in lead 3. IMPRESSION: The patient is 77-year-old male patient with: 1. Presentation with gastrointestinal bleed, low hemoglobin and hematocrit, anemia, and black stool. 2. Known history of coronary artery disease. Please refer to a cardiac cath that was done about a m onth ago, February [address] Raya with a small-caliber vessel stenosis for medical treatment. 3. Currently, the patient is chest pain-free. 4. Hypokalemia. 5. Systemic arterial hypertension. 6. Mildly dilated thoracic aorta. 7. Hyperlipidemia. 8. Obesity. 9. Nonspecific EKG abnormalities. 10. He could not tolerate amlodipine in the past because of concerns of hypotension. PLAN: The patient currently on the telemetry. Hemodynamically, he is stable. He is chest pain-free . I have discussed him with the Hospitalist Service. I understand Gastroenterology will be seeing jose m im as soon as possible, and I understand there is a plan for endoscopy, which I would defer as per GI . At the present time, I think demand ischemia probably is causing his chest pain. Given the 80% to 90% disease in a small-caliber vessel obtuse marginal, I think continuing his beta-musa treatment , nitro, and stain is important. Benefits and risks have to be discussed regarding using aspirin and Plavix, especially in the presence of his GI bleed. Blood transfusion as we are already doing, keep potassium more than 4, keep a close eye on his vitals and hemodynamic stability. We will discuss wit jose m GI the plan as well as his aspirin and Plavix. We will follow him closely with you. Thank you very much for asking use to participate in the care of this patient. TIME SPENT: More than half of at least 60 to 65 plus minutes was spent on face-to- face education, c arthureling mode, and making further recommendations. [id number]/[facility] #: [id number]
[2018-03-30] MEDS ORDERED: Famotidine IV * 20 MG in NS 0.9% 100 ML* 100 ML IVPB SCH (21:00)
[2018-03-30] MEDS ORDERED: Tamsulosin CAP* 0.4 MG PO SCH (21:00)
--- NOTE | 2018-03-30 21:00 | CONS ---
CONSULTATION REPORT: DATE OF CONSULT: 03/30/18 REQUESTING PROVIDER: Dr. Randy Plunkett. REASON FOR CONSULTATION: Anemia. Positive occult stool, melena. HISTORY OF PRESENT ILLNESS: This is a very pleasant 77-year-old male with a past medical history of hypertension, hyperlipidemia and CAD with an NSTEMI in February 2018 who notes that he has had dark s tools shortly after his NSTEMI in February. He was started on iron therapy, but he thinks that the da rk stool may have preceded that. He admits to some epigastric discomfort that can be worse postprand ially with some associated nausea. He does admit to taking ibuprofen 400 to 600 mg nightly for many years, but recently stopped a few months ago. In February, he was started on baby aspirin and Plavix given his NSTEMI for severe coronary artery disease. He had a full workup and was managed medically during his hospitalization. He denies any weight loss or weight gain. No fevers, chills, rigors. Denies any dysphagia or odynophagia. No deborah hematochezia. Denies diarrhea or constipation on a re gular basis. Admits to occasional lightheadedness, but no deborah dizziness or vertigo. He did have a previous colonoscopy with Dr. Gipson in 2014 and had a small sigmoid colon polyp and minimal sigmoid diverticulosis. The remainder of his 14-point review of systems is grossly negative. PAST MEDICAL HISTORY: Includes recent NSTEMI, coronary artery disease, thoracic aortic aneurysm, hyp erlipidemia, iron deficiency anemia, BPH, hypertension. PAST SURGICAL HISTORY: Cardiac catheterization, back surgery, colonoscopy in December 2014. FAMILY HISTORY: Patient's father had colon cancer and mother also had colon cancer and he had a brot her who also of colon cancer. SOCIAL HISTORY: Patient denies smoking. Does not drink alcohol. HOME MEDICATIONS: Include, 1. Lipitor. 2. Aspirin. 3. Tamsulosin. 4. Finasteride. 5. Pantoprazole. 6. Metoprolol. 7. Ferrous sulfate. 8. Plavix. 9. Nitroglycerin. ALLERGIES: No known drug allergies. REVIEW OF SYSTEMS: Remainder of the 14-point review of system was reviewed and negative except as de scribed in the HPI. PHYSICAL EXAMINATION: Vital Signs: Blood pressure is 122/68, pulse is 72, respiratory rate is 19. He is 96% on room air. In general, he is alert and oriented x3, in no acute distress. HEENT: Atrau matic, normocephalic. Pupils are equal, round, reactive to light. Conjunctivae are mildly pale. Scl erae anicteric. Cardiovascular: Regular rate and rhythm. S1, S2. Respiratory: Diminished at the b ase, but grossly clear otherwise. Abdomen is soft, mild tenderness to palpation in the epigastric re gion. Bowel sounds are positive. Extremities: No clubbing. No cyanosis. No edema. Skin Exam: Th ere is scattered ecchymosis on his skin. DIAGNOSTIC STUDIES/LAB DATA: Hemoglobin on admission was 7.3, baseline appears to be 10.5 to 9.9. H owever, in 2017, he was 15 and basically since 2018 and this year, he has been in 11.6 and continuing to drop. The MCV is 77. INR is 1.16. Iron is less than 15. Present saturation is 4, transferrin i s 255, ferritin is 14.9, CRP is 12.3. He had occult positive stool cards. ASSESSMENT AND PLAN: This is a 77-year-old male with iron-deficiency anemia, positive for occult sto ol cards and melena. 1. Melena: Patient is currently hemodynamically stable. Recommend H and H q.6 hours. Agree with I V pantoprazole drip. Keep the head of bed elevated, avoid nonsteroidal anti-inflammatory drugs at th is point. We would hold his Plavix therapy. We will plan on esophagogastroduodenoscopy today. If n o etiology is found, discussed the possibility of colonoscopy inpatient versus outpatient pending cli nical course. If that is negative, we will plan on capsule endoscopy. 2. Coronary artery disease with recent [id number] myocardial infarction. Patient has been medi cristiana managed. No further cardiac workup per Cardiology report at this time. 3. Strong family history of colon cancer. [id number]/[facility] #: [id number]
--- NOTE | 2018-03-31 01:14 | PRO ---
CC: Dr. Tierney * ESOPHAGOGASTRODUODENOSCOPY REPORT: DATE OF PROCEDURE: 03/30/18 - ROOM #442 PRIMARY CARE PHYSICIAN: Dr. Tierney. INDICATION FOR PROCEDURE: Melena, acute blood loss anemia. PROCEDURE PERFORMED: Complete esophagogastroduodenoscopy with biopsies. MEDICATIONS GIVEN: Include Midazolam 7 mg IV, Fentanyl 50 mcg IV. DESCRIPTION OF PROCEDURE: After the EGD procedure, including the risks, benefits and alternatives, with the risks not limited to perforation, surgery, missed lesions, and/or were explained to the patient, written and informed consent was obtained. IV medication was given and a bite-block was placed between the teeth. The adult Olympus gastroscope was then inserted into the patient's oropharynx and into the tubular esophagus. The distal esophagus shows mild irregularity to the GE junction less than 1 cm, this was biopsied for Bush's esophagus. The scope was then advanced to the lower esophageal sphincter into the stomach. No fresh or old blood was visualized. The mucosa had an atrophic appearance. I did take biopsies for atrophic gastritis. On retroflexion, the views were grossly normal. The scope was then advanced through a widely patent pylorus into the duodenal bulb, C-loop, and distal duodenum. These were grossly normal. I did push as far as I could with the upper endoscopy scope to likely the proximal jejunum and this was also normal as well. I did take biopsies in the duodenum to rule out villous blunting and malabsorption as a cause. I then return to the stomach along the body, there was a small area of erythema. This was biopsied separately. In addition, there was a scant erosion that was nonbleeding. The scope was then removed from the patient. He tolerated the procedure well. He returned to the recovery room in stable condition. IMPRESSION: 1. Complete esophagogastroduodenoscopy with biopsies. 2. No fresh or old blood. 3. No cause of anemia identified. 4. Variable gastroesophageal junction biopsy to rule out Bush's. 5. Atrophic mucosa biopsy to rule out atrophic gastritis. 6. Erythema along the body of the stomach, biopsied separately. 7. Biopsies taken of small bowel throughout malabsorption. RECOMMENDATIONS: After discussion with the patient and his , we will plan on repeating colonoscopy tomorrow given his strong family history, no cause of anemia was identified on the exam today. If no cause is found on the colonoscopy and his hemoglobin remain stable, we would recommend outpatient capsule endoscopy at that point. [id number]/[facility] #: [id number] JOSE
[2018-03-31] MEDS: Pantoprazole* 80 mg IN NS 80 MG/250 ML BAG IVPB SCH ×4 (03:14→17:25)
[2018-03-31 05:34] LABS: ABS Basophils 0 10^3/ul (0-0.2); ABS Eosinophils 0.1 10^3/ul (0-0.6); ABS Lymphocytes 0.7 10^3/ul (1.0-4.8); ABS Monocytes 0.5 10^3/ul (0-0.8); ABS Nucleated RBC 0 10^3/ul; Eosinophil % 2.2 %; Hematocrit 25 % (42-52); Hemoglobin 8.2 g/dl (14.0-18.0); Lymphocyte % 11.6 %; Mean Corpuscular HGB Conc 33 g/dl (31-36); Mean Corpuscular Hemoglobin 26 pg (27-31); Mean Corpuscular Volume 78 fL (80-94); Nucleated Red Blood Cells % 0; Platelet Count 327 10^3/ul (150-450); Red Blood Count 3.19 10^6/ul (4.00-5.40); Red Cell Distribution Width 16 % (10.5-15); White Blood Count 6.4 10^3/ul (3.5-10.8)
[2018-03-31 05:50] LABS: BUN/Creatinine Ratio 15.5 (8-20); Calcium 8.8 mg/dL (8.6-10.3); EGFR African American 106.9 (>60); EGFR Non-African American 88.4 (>60); Magnesium 1.9 mg/dL (1.9-2.7); Potassium 3.7 mmol/L (3.5-5.0)
[2018-03-31] MEDS: Sucralfate SUSP 1 GM/10 ml 10 ML UDC PO SCH ×3 (05:56→16:24)
[2018-03-31] MEDS ORDERED: Aspirin EC TAB* 81 MG TAB.EC PO SCH (09:00)
[2018-03-31] MEDS: Famotidine IV* 10 MG/ML 2 ML (20 mg) IV SCH (09:36)
[2018-03-31] MEDS: Metoprolol Tartrate TAB* 25 MG PO SCH ×3 (11:07→19:45)
[2018-03-31] MEDS: Ferrous Sulfate TAB* 325 MG PO SCH ×3 (11:07→19:45)
[2018-03-31] MEDS: Cyanocobalamin TAB* 500 MCG PO SCH ×2 (11:07→13:33)
[2018-03-31] MEDS ORDERED: Midazolam* 1 MG/ML 10 ML VIAL (10 MG) ONE (12:11)
[2018-03-31] MEDS ORDERED: fentaNYL* 50 MCG/ML 2 ML VIAL (100 MCG VIAL) ONE (12:11)
--- NOTE | 2018-03-31 13:05 | CONSULT ---
Consult Consult: Gi Brief Note Colon to TI x 20cm. No fresh or old blood. Mild diverticulosis. Good prep. Rec: Observe Hgb for next 24 hours, if stable would plan outpatient capsule endoscopy. If decreasing or inappropriate increase would plan nuclear medicine bleeding scan. His hgb rise yesterday was inappropriate for the 2 units he received. Ze Goodwin DO 03/31/18 1305.
--- NOTE | 2018-03-31 14:05 | PRO ---
CC: Dr. Bryan Tierney * COLONOSCOPY REPORT: DATE OF PROCEDURE: 03/31/18 - ROOM #442 PRIMARY CARE PHYSICIAN: Dr. Bryan Tierney. INDICATION FOR PROCEDURE: Iron-deficiency anemia. PROCEDURE PERFORMED: Complete colonoscopy to the terminal ileum with 20 cm of small bowel visualized. MEDICATIONS GIVEN: Include 7 mg IV midazolam, 50 mcg IV fentanyl. DESCRIPTION OF PROCEDURE: After the colonoscopy procedure including the risks, benefits, and alternatives with the risks not limited to perforation, surgery, missed lesions, and/or were explained to the patient, written informed consent was obtained. IV medication was given and a rectal exam was performed. The rectal exam was unremarkable. The adult Olympus colonoscope was inserted into the patient's rectum very carefully through the entirety of the colon and into the cecal base. The preparation was good. The terminal ileal valve was identified and intubated times 20 cm without any evidence of fresh or old blood. The scope was then removed from the patient to the cecum and over the next 7 minutes, the scope was carefully withdrawn inspecting the mucosa. There was mild pandiverticulosis coli. There was again no fresh or old blood that was visualized. On return to the rectum, the direct views were normal. On retroflexion, the views were normal as well. The scope was then removed from the patient. He tolerated the procedure well. He returned to the recovery room in stable condition. IMPRESSION: 1. Complete colonoscopy to the terminal ileum. 2. No fresh or old blood. 3. Mild pandiverticulosis coli. 4. Good prep. RECOMMENDATIONS: At this point, we will recommend observing the patient again overnight. He did get 2 units of PRBCs. His hemoglobin edna was 7.3; however , with the 2 units, he only yousif to 8.2. He is getting an additional unit now per primary team. If hemoglobin is stable on 03/31/18 and no signs of overt bleeding, reasonable to discharge and we would plan outpatient capsule endoscopy. If hemoglobin is not appropriately rising or decreases on 04/01/18, we would plan on nuclear medicine scan at that point. In the short-term future , it may be reasonable to have an oncologic opinion in terms of the iron- deficiency anemia. [id number]/[facility] #: [id number] [facility]ITAL[facility]
[2018-03-31] MEDS: Acetaminophen TAB* 325 MG PO PRN (14:20)
[2018-03-31 14:43] LABS: Hematocrit 29 % (42-52); Hemoglobin 9.3 g/dl (14.0-18.0)
--- NOTE | 2018-03-31 19:09 | PN ---
Subjective Date of Service: 03/31/18 Interval History: Patient seen today, no acute distress. S/p EGD doing well. tolerated well. no fever or chills. discussed with GI on obvious source on both EGD and colonoscopy. Cleared to resume Aspirin. Start PO and will continue CBC follow up in am and if he has any further drop in HH will consider bleeding scan Past Medical History: Unchanged from Admission Objective Active Medications: Acetaminophen (Tylenol Tab*) 650 mg PO Q4H PRN PRN Reason: FEVER/PAIN Last Admin: 03/31/18 14:20 Dose: 650 mg Aspirin (Aspirin Ec Tab*) 81 mg PO DAILY [facility] Atorvastatin Calcium (Lipitor*) 80 mg PO BEDTIME [facility] Last Admin: 03/30/18 20:17 Dose: 80 mg Cyanocobalamin (Vitamin B12 Tab*) 1,000 mcg PO DAILY [facility] Last Admin: 03/31/18 13:33 Dose: 1,000 mcg Ferrous Sulfate (Ferrous Sulfate Tab*) 325 mg PO BID [facility] Last Admin: 03/31/18 13:32 Dose: 325 mg Finasteride (Proscar Tab*) 5 mg PO BEDTIME [facility] Last Admin: 03/30/18 20:17 Dose: 5 mg Pantoprazole Sodium (Protonix Iv Bag*) 80 mg in 250 mls @ 25 mls/hr IVPB Q10H [facility] Last Admin: 03/31/18 17:25 Dose: Not Given Sodium Chloride (Ns 0.9% 1000 Ml*) 1,000 mls @ 80 mls/hr IV PER RATE [facility] Metoprolol Tartrate (Lopressor Tab*) 12.5 mg PO Q12HR [facility] Last Admin: 03/31/18 13:33 Dose: 12.5 mg Nitroglycerin (Nitroglycerin Tab 0.4 Mg*) 0.4 mg SL Q5M PRN PRN Reason: PAIN - CHEST Ondansetron HCl (Zofran Inj*) 4 mg IV Q6H PRN PRN Reason: NAUSEA Vital Signs - 8 hr 03/31/18 03/31/18 13:18 15:18 Temperature 97.4 F 97.9 F Pulse Rate 62 77 Respiratory 18 16 Rate Blood Pressure 143/64 128/59 (mmHg) O2 Sat by Pulse 95 100 Oximetry Oxygen Devices in Use Now: None Appearance: awake, alert. no distress Eyes: No Scleral Icterus, - - EOMI Ears/Nose/Mouth/Throat: NL Teeth, Lips, Gums, Mucous Membranes Moist Neck: NL Appearance and Movements; NL JVP, Trachea Midline Respiratory: Symmetrical Chest Expansion and Respiratory Effort, Clear to Auscultation Cardiovascular: NL Sounds; No Murmurs; No JVD, RRR Abdominal: NL Sounds; No Tenderness; No Distention Lymphatic: No Cervical Adenopathy Extremities: No Edema Neurological: Alert and Oriented x 3 Result Diagrams: 03/31/18 14:37 03/31/18 05:21 Additional Lab and Data: Lab Results 03/30/18 Range/Units 10:02 WBC 6.6 (3.5-10.8) 10^3/ul RBC 2.98 L (4.00-5.40) 10^6/ul Hgb 7.3 L (14.0-18.0) g/dl Hct 23 L (42-52) % MCV 77 L (80-94) fL MCH 24 L (27-31) pg MCHC 32 (31-36) g/dl RDW 16 H (10.5-15) % Plt Count 415 (150-450) 10^3/ul MPV 7.3 L (7.4-10.4) fL Neut % (Auto) 79.8 % Lymph % (Auto) 10.4 % [place] % (Auto) 7.2 % Eos % (Auto) 1.6 % Baso % (Auto) 1.0 % Absolute Neuts (auto) 5.3 (1.5-7.7) 10^3/ul Absolute Lymphs (auto) 0.7 L (1.0-4.8) 10^3/ul Absolute Monos (auto) 0.5 (0-0.8) 10^3/ul Absolute Eos (auto) 0.1 (0-0.6) 10^3/ul Absolute Basos (auto) 0.1 (0-0.2) 10^3/ul Absolute Nucleated RBC 0 10^3/ul Nucleated RBC % 0.1 Microbiology and Other Data: Microbiology 03/30/18 12:22 Urine Culture - Final Urine 03/30/18 10:37 Stool Occult Blood ([place]) - Final Stool Assess/Plan/Problems-Billing Assessment: 77 year old male here for GI bleed. - Patient Problems (1) GI bleed Current Visit: Yes Status: Acute Code(s): K92.2 - GASTROINTESTINAL HEMORRHAGE, UNSPECIFIED SNOMED Code(s): 71708553 Comment: s/p EGD and colonoscopy on source of bleed identified will follow up CBC in am s/p 3 units pRBC totals. if drop in am will transfuse and will obtain nuclear RBC tag scan (2) CAD (coronary artery disease) Current Visit: No Status: Acute Code(s): I25.10 - ATHSCL HEART DISEASE OF [place] CORONARY ARTERY W/O ANG PCTRS SNOMED Code(s): 47452717 Comment: - Recent hospitalization for non stemi - Recent cath non obstuctive CAD. medical managment - continue aspirin, off plavix given his history of GI bleed, lipitor, amlodipine and lopressor 12.5 mg bid (3) Hyperlipidemia Current Visit: No Status: Acute Code(s): E78.5 - HYPERLIPIDEMIA, UNSPECIFIED SNOMED Code(s): 24722338 Comment: - Continue atorvastatin 80 mg daily
[2018-03-31] MEDS: NS 0.9% 1000 ML* 1,000 ML IV SCH (19:30)
[2018-03-31] MEDS: Atorvastatin* 80 MG TAB PO SCH (19:45)
[2018-03-31] MEDS: Finasteride TAB* 5 MG PO SCH (19:45)
[2018-04-01] MEDS: Pantoprazole* 80 mg IN NS 80 MG/250 ML BAG IVPB SCH ×2 (01:35→08:58)
[2018-04-01 05:55] LABS: ABS Basophils 0.1 10^3/ul (0-0.2); ABS Eosinophils 0.2 10^3/ul (0-0.6); ABS Lymphocytes 0.7 10^3/ul (1.0-4.8); ABS Monocytes 0.6 10^3/ul (0-0.8); ABS Neutrophils 5.1 10^3/ul (1.5-7.7); ABS Nucleated RBC 0 10^3/ul; Eosinophil % 2.4 %; Hematocrit 26 % (42-52); Hemoglobin 8.5 g/dl (14.0-18.0); Mean Corpuscular HGB Conc 33 g/dl (31-36); Mean Corpuscular Hemoglobin 26 pg (27-31); Mean Corpuscular Volume 78 fL (80-94); Mean Platelet Volume 7.6 fL (7.4-10.4); Nucleated Red Blood Cells % 0; Platelet Count 276 10^3/ul (150-450); Red Blood Count 3.31 10^6/ul (4.00-5.40); Red Cell Distribution Width 17 % (10.5-15); White Blood Count 6.6 10^3/ul (3.5-10.8)
[2018-04-01 06:09] LABS: BUN/Creatinine Ratio 19.3 (8-20); Calcium 8.5 mg/dL (8.6-10.3); EGFR African American 108.4 (>60); EGFR Non-African American 89.6 (>60); Magnesium 1.8 mg/dL (1.9-2.7); Phosphorus 3.2 mg/dL (2.5-5.0); Potassium 3.7 mmol/L (3.5-5.0)
[2018-04-01] MEDS: Metoprolol Tartrate TAB* 25 MG PO SCH ×2 (08:47→20:25)
[2018-04-01] MEDS: Ferrous Sulfate TAB* 325 MG PO SCH ×2 (08:48→20:26)
[2018-04-01] MEDS: Cyanocobalamin TAB* 500 MCG PO SCH (08:48)
[2018-04-01] MEDS: Aspirin EC TAB* 81 MG TAB.EC PO SCH (08:48)
[2018-04-01] MEDS: NS 0.9% 1000 ML* 1,000 ML IV SCH (08:49)
[2018-04-01] MEDS: Pantoprazole TAB * 40 MG TAB PO SCH ×2 (09:31→20:26)
--- NOTE | 2018-04-01 15:23 | PN ---
Progress Note - Progress Note Date of Service: 04/01/18 Note: Gastroenterology Follow up Patient seen and examined. Complaining of pain today in abdomen. No black or blood in stool. No bm today but is passing gas. No fever, chills or rigors. He denies chest pain or dyspnea today. State pain started this am. tolerated food well last night and earlier AM. Was transfused again today. VS: BP 144/67, P-54, T-98.7, R-20 Gen: alert, oriented x3 HEENT: AT/NC, PERRLA, EOMI, sclera anicteric, conjunctiva pink CVS: RRR s1s2 Resp: diminished at base, fair effort Abd: soft, mod ttp RLQ, epigastrum, BS+ Ext: trace edema Skin: scattered ecchymoses. Lab: Hgb 8.2->9.3->8.5 Inappropriate rise with transfusion. Impression: Iron deficiency Anemia Occult Positive Possible melena Abdominal pain Rec: EGD/colon without source. See appropriate reports. Today pain is new. Will plan on CT abd/pelvis. His hgb did not rise appropriately. No overt signs of blood loss at this time. Hemolytic anemia less likely with normal bili but will get LDH, Haptoglobin, recommend peripheral smear. If no clear etiology would get NM bleeding scan. If stable can have capsule endoscopy as outpatient if no source identified. Consider heme/onc involvement pending clinical course Ze Goodwin DO 04/01/18 2744
--- NOTE | 2018-04-01 16:19 | PN ---
Subjective Date of Service: 04/01/18 Interval History: Patient seen this afternoon. He is complaining of abdominal pain. He claims it began 5 am yesterday. no events reported to provider from last night. Nonetheless; his at bedside express frustrations about his care. I explained to them his hospital course., on examination he did have bilateral lower quadrant tenderness. He was already seen by GI and CT scan has already been ordered for which I agree with. He has no fever, WBC normal. His Hct dropped again this morning. down to 26! Will given another units (#4 totals) and will order for nuclear scan scheduled for tomorrow. Past Medical History: Unchanged from Admission Objective Active Medications: Acetaminophen (Tylenol Tab*) 650 mg PO Q4H PRN PRN Reason: FEVER/PAIN Last Admin: 03/31/18 14:20 Dose: 650 mg Aspirin (Aspirin Ec Tab*) 81 mg PO DAILY [facility] Last Admin: 04/01/18 08:48 Dose: 81 mg Atorvastatin Calcium (Lipitor*) 80 mg PO BEDTIME [facility] Last Admin: 03/31/18 19:45 Dose: 80 mg Cyanocobalamin (Vitamin B12 Tab*) 1,000 mcg PO DAILY [facility] Last Admin: 04/01/18 08:48 Dose: 1,000 mcg Ferrous Sulfate (Ferrous Sulfate Tab*) 325 mg PO BID [facility] Last Admin: 04/01/18 08:48 Dose: 325 mg Finasteride (Proscar Tab*) 5 mg PO BEDTIME [facility] Last Admin: 03/31/18 19:45 Dose: 5 mg Sodium Chloride (Ns 0.9% 1000 Ml*) 1,000 mls @ 80 mls/hr IV PER RATE [facility] Last Admin: 04/01/18 08:49 Dose: 80 mls/hr Metoprolol Tartrate (Lopressor Tab*) 12.5 mg PO Q12HR [facility] Last Admin: 04/01/18 08:47 Dose: 12.5 mg Nitroglycerin (Nitroglycerin Tab 0.4 Mg*) 0.4 mg SL Q5M PRN PRN Reason: PAIN - CHEST Ondansetron HCl (Zofran Inj*) 4 mg IV Q6H PRN PRN Reason: NAUSEA Pantoprazole Sodium (Protonix Tab (Nf)) 40 mg PO BID [facility] Last Admin: 04/01/18 09:31 Dose: 40 mg Vital Signs - 8 hr 04/01/18 04/01/18 08:22 12:22 Temperature 98.7 F 98.7 F Pulse Rate 71 54 Respiratory 20 20 Rate Blood Pressure 144/78 144/67 (mmHg) O2 Sat by Pulse 99 98 Oximetry Oxygen Devices in Use Now: None Appearance: Awake, alert. Mild abdominal distress Eyes: PERRLA Ears/Nose/Mouth/Throat: NL Teeth, Lips, Gums, Mucous Membranes Moist Neck: NL Appearance and Movements; NL JVP, Trachea Midline Respiratory: Symmetrical Chest Expansion and Respiratory Effort, Clear to Auscultation Cardiovascular: NL Sounds; No Murmurs; No JVD, RRR, No Edema Abdominal: - - bilateral lower quadrant pain and tendernss Extremities: No Edema Skin: No Rash or Ulcers Neurological: Alert and Oriented x 3 Result Diagrams: 04/01/18 05:17 04/01/18 05:17 Additional Lab and Data: Lab Results 03/30/18 Range/Units 10:02 WBC 6.6 (3.5-10.8) 10^3/ul RBC 2.98 L (4.00-5.40) 10^6/ul Hgb 7.3 L (14.0-18.0) g/dl Hct 23 L (42-52) % MCV 77 L (80-94) fL MCH 24 L (27-31) pg MCHC 32 (31-36) g/dl RDW 16 H (10.5-15) % Plt Count 415 (150-450) 10^3/ul MPV 7.3 L (7.4-10.4) fL Neut % (Auto) 79.8 % Lymph % (Auto) 10.4 % [place] % (Auto) 7.2 % Eos % (Auto) 1.6 % Baso % (Auto) 1.0 % Absolute Neuts (auto) 5.3 (1.5-7.7) 10^3/ul Absolute Lymphs (auto) 0.7 L (1.0-4.8) 10^3/ul Absolute Monos (auto) 0.5 (0-0.8) 10^3/ul Absolute Eos (auto) 0.1 (0-0.6) 10^3/ul Absolute Basos (auto) 0.1 (0-0.2) 10^3/ul Absolute Nucleated RBC 0 10^3/ul Nucleated RBC % 0.1 Microbiology and Other Data: Microbiology 03/30/18 12:22 Urine Culture - Final Urine 03/30/18 10:37 Stool Occult Blood ([place]) - Final Stool Assess/Plan/Problems-Billing Assessment: 77 year old male here for GI bleed. - Patient Problems (1) GI bleed Current Visit: Yes Status: Acute Code(s): K92.2 - GASTROINTESTINAL HEMORRHAGE, UNSPECIFIED SNOMED Code(s): 11418378 Comment: s/p EGD and colonoscopy on source of bleed identified will follow up CBC in am s/p 3 units pRBC totals. His Hct dropped this am. I will transfuse one more units today (total so far # 4 units) - for nuclear RBC tag scan in am - I do not see obvious source of bleed. Nothing reported by staff and patient while inpatient. His studies reviewed. given his melena, guiac positive; iron defciency anemia, I presume it is GI loss. I agree to check hapto and LDH ( less likely to be hemolytic) (2) CAD (coronary artery disease) Current Visit: No Status: Acute Code(s): I25.10 - ATHSCL HEART DISEASE OF [place] CORONARY ARTERY W/O ANG PCTRS SNOMED Code(s): 23677355 Comment: - Recent hospitalization for non stemi - Recent cath non obstuctive CAD. medical managment - continue aspirin, off plavix given his history of GI bleed, lipitor, amlodipine and lopressor 12.5 mg bid (3) Hyperlipidemia Current Visit: No Status: Acute Code(s): E78.5 - HYPERLIPIDEMIA, UNSPECIFIED SNOMED Code(s): 59916403 Comment: - Continue atorvastatin 80 mg daily
[2018-04-01 18:33] LABS: ABS Basophils 0 10^3/ul (0-0.2); ABS Eosinophils 0.1 10^3/ul (0-0.6); ABS Lymphocytes 0.6 10^3/ul (1.0-4.8); ABS Monocytes 0.6 10^3/ul (0-0.8); ABS Nucleated RBC 0 10^3/ul; Eosinophil % 1.2 %; Hematocrit 30 % (42-52); Hemoglobin 9.7 g/dl (14.0-18.0); Lymphocyte % 7.1 %; Mean Corpuscular HGB Conc 32 g/dl (31-36); Mean Corpuscular Hemoglobin 26 pg (27-31); Mean Corpuscular Volume 80 fL (80-94); Mean Platelet Volume 7.5 fL (7.4-10.4); Nucleated Red Blood Cells % 0; Platelet Count 302 10^3/ul (150-450); Red Blood Count 3.77 10^6/ul (4.00-5.40); Red Cell Distribution Width 18 % (10.5-15); White Blood Count 8.4 10^3/ul (3.5-10.8)
[2018-04-01] MEDS ORDERED: Iohexol 300* (CONTRAST) 10 ML SDV IV ONE (19:30)
[2018-04-01] MEDS: Finasteride TAB* 5 MG PO SCH (20:26)
[2018-04-01] MEDS: Atorvastatin* 80 MG TAB PO SCH (20:26)
[2018-04-01] MEDS: Tamsulosin CAP* 0.4 MG PO SCH (20:28)
--- NOTE | 2018-04-01 21:20 | PN ---
Hospitalist Progress Note Date of Service: 04/01/18 CT scan report reviewed 9:20 pm. Spoke to patient and . Update on the result of SBO possible mass malignancy versus infectious. I called surgery for consult with Dr. Joe. Will keep him NPO except for ice and meds. IVF gently
[2018-04-02] MEDS: NS 0.9% 1000 ML* 1,000 ML IV SCH (00:09)
[2018-04-02 06:32] LABS: ABS Basophils 0 10^3/ul (0-0.2); ABS Eosinophils 0.2 10^3/ul (0-0.6); ABS Lymphocytes 0.8 10^3/ul (1.0-4.8); ABS Monocytes 0.8 10^3/ul (0-0.8); ABS Neutrophils 5.4 10^3/ul (1.5-7.7); ABS Nucleated RBC 0 10^3/ul; Eosinophil % 2.2 %; Hematocrit 27 % (42-52); Mean Corpuscular HGB Conc 33 g/dl (31-36); Mean Corpuscular Hemoglobin 26 pg (27-31); Mean Corpuscular Volume 79 fL (80-94); Mean Platelet Volume 7.4 fL (7.4-10.4); Nucleated Red Blood Cells % 0; Platelet Count 251 10^3/ul (150-450); Red Blood Count 3.42 10^6/ul (4.00-5.40); Red Cell Distribution Width 17 % (10.5-15); White Blood Count 7.1 10^3/ul (3.5-10.8)
[2018-04-02 06:51] LABS: Albumin 2.7 g/dL (3.2-5.2); BUN/Creatinine Ratio 11.5 (8-20); Calcium 8.5 mg/dL (8.6-10.3); EGFR African American 102.7 (>60); EGFR Non-African American 84.9 (>60); Globulin 2.8 g/dL (2-4); Indirect Bilirubin 0.6 mg/dL (0.3-1.0); Magnesium 1.8 mg/dL (1.9-2.7); Phosphorus 3.8 mg/dL (2.5-5.0); Potassium 3.4 mmol/L (3.5-5.0); Total Bilirubin 0.8 mg/dL (0.2-1.0); Total Protein 5.5 g/dL (6.4-8.9)
[2018-04-02] MEDS: Metoprolol Tartrate TAB* 25 MG PO SCH ×2 (09:19→19:49)
[2018-04-02] MEDS: Aspirin EC TAB* 81 MG TAB.EC PO SCH (09:44)
[2018-04-02] MEDS: Ferrous Sulfate TAB* 325 MG PO SCH ×2 (10:08→21:09)
[2018-04-02] MEDS: Cyanocobalamin TAB* 500 MCG PO SCH (10:08)
[2018-04-02] MEDS: Pantoprazole TAB * 40 MG TAB PO SCH ×2 (10:10→19:50)
[2018-04-02] MEDS ORDERED: Magnesium Sulfate 1 GM IV* 1 GM/100 ML BAG IV ONE (10:46)
--- NOTE | 2018-04-02 11:14 | PN ---
Subjective Date of Service: 04/02/18 Interval History: Pt had abd cramping yesterday. Today denies abd pain. Last episode of CP at admission, no CP since. Past Medical History: Unchanged from Admission Objective Active Medications: Acetaminophen (Tylenol Tab*) 650 mg PO Q4H PRN PRN Reason: FEVER/PAIN Last Admin: 03/31/18 14:20 Dose: 650 mg Aspirin (Aspirin Ec Tab*) 81 mg PO DAILY [facility] Last Admin: 04/02/18 09:44 Dose: Not Given Atorvastatin Calcium (Lipitor*) 80 mg PO BEDTIME [facility] Last Admin: 04/01/18 20:26 Dose: 80 mg Cyanocobalamin (Vitamin B12 Tab*) 1,000 mcg PO DAILY [facility] Last Admin: 04/02/18 10:08 Dose: Not Given Ferrous Sulfate (Ferrous Sulfate Tab*) 325 mg PO BID [facility] Last Admin: 04/02/18 10:08 Dose: Not Given Finasteride (Proscar Tab*) 5 mg PO BEDTIME [facility] Last Admin: 04/01/18 20:26 Dose: 5 mg Sodium Chloride (Ns 0.9% 1000 Ml*) 1,000 mls @ 80 mls/hr IV PER RATE [facility] Last Admin: 04/02/18 00:09 Dose: 80 mls/hr Potassium Chloride (Potassium Chloride 20 Meq/100 Ml Ivpremix*) 20 meq in 100 mls @ 50 mls/hr IV Q2H [facility] Stop: 04/02/18 12:59 Magnesium Sulfate/Dextrose (Magnesium Sulfate 1 Gm Iv*) 1 gm in 100 mls @ 200 mls/hr IV ONCE ONE Stop: 04/02/18 11:15 Metoprolol Tartrate (Lopressor Tab*) 12.5 mg PO Q12HR [facility] Last Admin: 04/02/18 09:19 Dose: 12.5 mg Nitroglycerin (Nitroglycerin Tab 0.4 Mg*) 0.4 mg SL Q5M PRN PRN Reason: PAIN - CHEST Ondansetron HCl (Zofran Inj*) 4 mg IV Q6H PRN PRN Reason: NAUSEA Last Admin: 04/01/18 16:45 Dose: 4 mg Pantoprazole Sodium (Protonix Tab (Nf)) 40 mg PO BID [facility] Last Admin: 04/02/18 10:10 Dose: Not Given Tamsulosin HCl (Flomax Cap*) 0.4 mg PO BEDTIME [facility] Last Admin: 04/01/18 20:28 Dose: 0.4 mg Vital Signs - 8 hr 04/02/18 08:36 Temperature 97.8 F Pulse Rate 62 Respiratory 18 Rate Blood Pressure 122/65 (mmHg) O2 Sat by Pulse 96 Oximetry Oxygen Devices in Use Now: None Appearance: 77 yo M in nAD, aAOx3 Eyes: No Scleral Icterus, PERRLA Ears/Nose/Mouth/Throat: NL Teeth, Lips, Gums, Mucous Membranes Moist Neck: NL Appearance and Movements; NL JVP, Trachea Midline Respiratory: Symmetrical Chest Expansion and Respiratory Effort, Clear to Auscultation Cardiovascular: NL Sounds; No Murmurs; No JVD, RRR Abdominal: - - mild supraumbilical tenderness, no rebound, no guarding, BS+ Lymphatic: No Cervical Adenopathy Extremities: No Edema, No Clubbing, Cyanosis Skin: No Rash or Ulcers, No Nodules or Sclerosis Neurological: Alert and Oriented x 3, NL Muscle Strength and Tone Result Diagrams: 04/02/18 06:00 04/02/18 06:00 Additional Lab and Data: Lab Results 03/30/18 Range/Units 10:02 WBC 6.6 (3.5-10.8) 10^3/ul RBC 2.98 L (4.00-5.40) 10^6/ul Hgb 7.3 L (14.0-18.0) g/dl Hct 23 L (42-52) % MCV 77 L (80-94) fL MCH 24 L (27-31) pg MCHC 32 (31-36) g/dl RDW 16 H (10.5-15) % Plt Count 415 (150-450) 10^3/ul MPV 7.3 L (7.4-10.4) fL Neut % (Auto) 79.8 % Lymph % (Auto) 10.4 % [place] % (Auto) 7.2 % Eos % (Auto) 1.6 % Baso % (Auto) 1.0 % Absolute Neuts (auto) 5.3 (1.5-7.7) 10^3/ul Absolute Lymphs (auto) 0.7 L (1.0-4.8) 10^3/ul Absolute Monos (auto) 0.5 (0-0.8) 10^3/ul Absolute Eos (auto) 0.1 (0-0.6) 10^3/ul Absolute Basos (auto) 0.1 (0-0.2) 10^3/ul Absolute Nucleated RBC 0 10^3/ul Nucleated RBC % 0.1 Microbiology and Other Data: Microbiology 03/30/18 12:22 Urine Culture - Final Urine 03/30/18 10:37 Stool Occult Blood ([place]) - Final Stool Assess/Plan/Problems-Billing Assessment: 77 year old male here for GI bleed.CT shows small bowel mass causing partial SBO - Patient Problems (1) GI bleed Comment: s/p EGD and colonoscopy on source of bleed identified CT on 04/01/18 shows partial SBO and small intestinal mass. Mark consulted. Asked Dr. Verde to see pt for preop cardiac clearance due to recent NSTEMI s/p 4 units PRBC total. His Hct stable now. (2) BPH (benign prostatic hyperplasia) Comment: - Continue finasteride and tamsulosin (3) CAD (coronary artery disease) Comment: - Recent hospitalization for non stemi - Recent cath non obstuctive CAD. medical management appreciate DR. Navas consult. Asked to see pt/clear from cardiac standpoint for OR possibly later on today (4) DVT prophylaxis Comment: - SCDs Status and Disposition: inpatient
[2018-04-02] MEDS: KCL 20 MEQ/100 ML IVPREMIX* 20 MEQ/100 ML BAG IV SCH ×2 (11:21→14:30)
--- NOTE | 2018-04-02 16:20 | CONS ---
CONSULTATION REPORT: DATE OF CONSULT: 04/02/18 REFERRING PROVIDER: Dr. Smita Reina, hospitalist. REASON FOR CONSULT: Small bowel mass with anemia and abdominal pain. HISTORY OF PRESENT ILLNESS: Mr. Reggie Robles is a 77-year-old gentleman with a past medical history significant for hypertension, hyperlipidemia and coronary artery disease, who had suffered a non-STEMI myocardial infarction in February 2018, who over the past several months has been having mid to lower abdominal discomfort and melanotic stools. He was noted to have iron deficiency anemia in the last several weeks and was started on iron. He also had been on aspirin and Plavix after he underwent a coronary catheterization in February with Dr. Raya. At that time, there was coronary artery disease noted, but it was not felt amenable nor was stenting indicated at that time and he has been doing well. On the day of his admission, he had developed some shortness of breath and chest discomfort and was noted to have elevated troponins and chest pain was felt secondary to the anemia. He has received 4 units of packed red blood cells while he has been hospitalized here. He has remained hemodynamically stable. He has undergone the following workup: 1. An upper endoscopy, which was unremarkable. 2. A colonoscopy of the terminal ileum, which was unremarkable. 3. A CAT scan of the abdomen and pelvis which was done yesterday, which shows a rather sizable small bowel mass at the most likely junction between the jejunum and ileum with some associated adenopathy. This had findings consistent with partial obstruction with proximal dilated small bowel as well. There were no other acute findings. In light of the CT scan findings, general surgical consultation was obtained. PAST MEDICAL HISTORY: 1. Coronary artery disease, with recent non-STEMI. 2. Thoracic aneurysm. 3. Hyperlipidemia. 4. Iron deficiency anemia per above. 5. Hypertension. 6. BPH. PAST SURGICAL HISTORY: 1. Cardiac catheterization. 2. Back surgery in 1999. 3. He has had no abdominal surgery. MEDICATIONS: Include: 1. Lipitor. 2. Aspirin. 3. Tamsulosin. 4. Finasteride. 5. Pantoprazole. 6. Metoprolol. 7. Ferrous sulfate. 8. Plavix. 9. Nitroglycerin. ALLERGIES: He has no known drug allergies. SOCIAL HISTORY: He denies ever smoking. He is . He does not drink alcohol. He does not use illicit drugs. 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 He is and has 4 grown children. His surrogate decision maker is his , Chana Robles. REVIEW OF SYSTEMS: A 14-point review of systems was reviewed, it is negative except for the above history and physical. PHYSICAL EXAM: Temperature 97.8, pulse 62, blood pressure 122/65, respirations 18. In general, he is an elderly well-nourished healthy-appearing male, who is in no apparent distress. He is awake, alert and conversive. Lungs were clear to auscultation with normal respiratory effort. Heart was regular rate and rhythm without murmurs, rubs, or gallops. His abdomen is soft and nondistended. There are no prior surgical incisions and no hernias. He had diminished bowel sounds throughout. There is some mild tenderness in the mid to lower abdomen, but without evidence of obvious mass, rebound or guarding. Extremities show no cyanosis or edema. DIAGNOSTIC STUDIES/LAB DATA: Laboratory values this morning include a white blood cell count of 7.1 with a hemoglobin of 9. He has a MCV of 79. As mentioned above, he has received 4 units of red blood cells during this admission. Electrolytes and renal function were all within normal limits. He has an albumin level of 2.7. I did review the CT scan of the abdomen and pelvis. This shows a sizable mass in the jejunoileal area of the small intestine, which is at least partially obstructing with some fecalization of the small bowel contents proximal and also some what appears to be mesenteric adenopathy. IMPRESSION: Small bowel mass causing abdominal discomfort and iron deficiency anemia, with resultant melanotic stools. He has some significant coronary artery disease and his anemia is led to chest pain and shortness of breath, which has now been remedied by 4 units of packed red blood cell transfusion. Cardiology as well as Gastroenterology have seen the patient. He has undergone an upper and lower endoscopy which are unremarkable. I had a long discussion with the patient and his in his room this afternoon. On review of the CT scan and his symptoms of bleeding and almost certain obstruction, I do recommend that this proceed with the surgical resection if at all possible. He has been on Plavix, but this was stopped on Monday and there is a slight increased risk of bleeding due to this, but I do not believe that it is mariee to wait much longer prior to proceeding with the more urgent surgery. His is obviously and appropriately concerned about his cardiac status and I will defer to Cardiology with regards to his cardiac risk factors and as well as if he is a candidate that may require transfer to a tertiary care center for management of possible postoperative cardiac and/or surgical complications, but we will await Dr. Lalo Verde's opinion regarding this. The patient's also questioned whether he should be transferred for the surgical procedure at a tertiary care center and I discussed this with her. This is certainly her and the patient's preference and if they would like to be transferred for surgical care, this could be arranged. I did emphasize to her that we feel comfortable operating on and managing this problem here at [facility] and they will consider this. I have attentively placed the patient on the operating room schedule for tomorrow morning at 7:30. We will await Dr. Verde's opinion from a cardiac standpoint today. He will be typed and crossed for blood and it may be reasonable to transfuse him prior to surgery to prevent anemia should there be blood loss. The procedure was discussed with the patient and his , and the risks of, but not limited to bleeding, infection, intraabdominal abscess formation, injury to peritoneal and retroperitoneal structures, possibility of a bowel resection with anastomosis with subsequent leak, abscess and intraperitoneal sepsis causing . Certainly, the cardiac and pulmonary risks as well as recovery times and potential hospital stays were all discussed. Thank you for this consultation. We will follow him closely with you. [id number]/[place] #: [id number] JOSE
[2018-04-02] MEDS: Atorvastatin* 80 MG TAB PO SCH (19:49)
[2018-04-02] MEDS: Finasteride TAB* 5 MG PO SCH (19:49)
[2018-04-02] MEDS: Tamsulosin CAP* 0.4 MG PO SCH (19:50)
[2018-04-03] MEDS: NS 0.9% 1000 ML* 1,000 ML IV SCH (02:38)
[2018-04-03 03:13] LABS: Hematocrit 32 % (42-52); Hemoglobin 10.5 g/dl (14.0-18.0)
[2018-04-03 03:14] LABS: ABS Basophils 0.1 10^3/ul (0-0.2); ABS Eosinophils 0.1 10^3/ul (0-0.6); ABS Lymphocytes 0.6 10^3/ul (1.0-4.8); ABS Monocytes 0.6 10^3/ul (0-0.8); ABS Neutrophils 7.2 10^3/ul (1.5-7.7); ABS Nucleated RBC 0 10^3/ul; Eosinophil % 1.4 %; Hematocrit 33 % (42-52); Hemoglobin 10.6 g/dl (14.0-18.0); Lymphocyte % 7.5 %; Mean Corpuscular HGB Conc 32 g/dl (31-36); Mean Corpuscular Hemoglobin 26 pg (27-31); Mean Corpuscular Volume 81 fL (80-94); Mean Platelet Volume 7.2 fL (7.4-10.4); Nucleated Red Blood Cells % 0; Platelet Count 263 10^3/ul (150-450); Red Blood Count 4.02 10^6/ul (4.00-5.40); Red Cell Distribution Width 18 % (10.5-15); White Blood Count 8.6 10^3/ul (3.5-10.8)
[2018-04-03 03:33] LABS: EGFR African American 96.3 (>60); EGFR Non-African American 79.6 (>60); Potassium 4.5 mmol/L (3.5-5.0)
[2018-04-03] MEDS ORDERED: Metoprolol Tartrate TAB* 25 MG ONE (06:55)
[2018-04-03] MEDS: Metoprolol Tartrate TAB* 25 MG PO SCH ×2 (06:57→17:42)
[2018-04-03] MEDS ORDERED: Phenylephrine INJ* 10 MG/ML 1 ML VIAL (10 MG) ONE (07:09)
[2018-04-03] MEDS ORDERED: Lidocaine 2% PF * 5 ML VIAL ONE (07:09)
[2018-04-03] MEDS ORDERED: Midazolam* 1 MG/ML 5 ML VIAL (5 MG) ONE (07:09)
[2018-04-03] MEDS ORDERED: Rocuronium* 10 MG/ML VIAL ONE ×2 (07:09→08:53)
[2018-04-03] MEDS ORDERED: KETAMINE HCL* 50 MG/ML 10 ML VIAL ONE (07:09)
[2018-04-03] MEDS ORDERED: Dexamethasone IV* 4 MG/ML 1 ML (4 MG) ONE (07:09)
[2018-04-03] MEDS ORDERED: Propofol* 10 MG/ML 20 ML BTL ONE (07:09)
[2018-04-03] MEDS ORDERED: fentaNYL* 50 MCG/ML 5 ML VIAL (250 MCG VIAL) ONE (07:09)
[2018-04-03] MEDS ORDERED: Ondansetron INJ* 2 MG/ML VIAL ONE (07:09)
[2018-04-03] MEDS ORDERED: Zosyn 3.375 gm X 1 dose, then dose per Pharmacy IVPB ONE ×2 (08:00)
[2018-04-03] MEDS ORDERED: fentaNYL* 50 MCG/ML 2 ML VIAL (100 MCG VIAL) ONE ×2 (08:55→09:37)
[2018-04-03] MEDS ORDERED: HYDROmorphone INJ1* 1 MG/ML SYRINGE ONE (10:29)
[2018-04-03] MEDS ORDERED: Neostigmine Methylsulfate* 1 MG/ML 10 ML VIAL (1 mg/ml) ONE (10:37)
[2018-04-03] MEDS ORDERED: Glycopyrrolate IV* 0.2 MG/ML 1 ML VIAL ONE (10:37)
[2018-04-03] MEDS ORDERED: Bupivacaine 0.5%* 50 ML VIAL ONE (10:40)
[2018-04-03] MEDS ORDERED: Naloxone* 0.4 MG/ML 1 ML VIAL IV PRN (10:54)
[2018-04-03] MEDS ORDERED: HYDROmorphone INJ1* 1 MG/ML SYRINGE IV PRN (10:54)
[2018-04-03] MEDS ORDERED: fentaNYL* 50 MCG/ML 2 ML VIAL (100 MCG VIAL) IV PRN (10:54)
[2018-04-03] MEDS ORDERED: Acetaminophen IV 1GM/100ML * 1,000 MG/100 ML VIAL IVPB ONE (10:54)
[2018-04-03] MEDS ORDERED: Ondansetron INJ* 2 MG/ML VIAL IV PRN (10:54)
[2018-04-03] MEDS ORDERED: Acetaminophen IV 1GM/100ML * 100 ML ONE (11:36)
[2018-04-03] MEDS ORDERED: Naloxone* 0.4 MG/ML 1 ML VIAL IV PUSH PRN (11:38)
--- NOTE | 2018-04-03 11:38 | BRIEFOPN ---
Brief Operative Note - Surgery Procedures: Procedures OPERATIVE REPORT PRE-OP: Small bowel mass POST-OP:Same PROCEDURE:Exploratory laparotomy, resection of small bowel and mass with two small bowel anastomoses SURGEON: MD Jose Daniel ANESTHESIA:Local with General, Dr. Sorensen ASST: Sandor Duran MD IVF:2150 cc crystalloid EBL:100 cc SPECIMEN:Portions of small bowel and associated mass DRAIN: none WOUND CLASS:3 COMPLICATIONS: none TO PACU
[2018-04-03] MEDS ORDERED: Morphine PCA ADULT* 5 MG/ML 30 ML PCA SCH (12:00)
[2018-04-03] MEDS ORDERED: Morphine VIAL* 10 MG/ML 1 ML VIAL ONE (13:09)
[2018-04-03] MEDS ORDERED: Metoprolol Tartrate IV* 1 MG/ML 5 ML VIAL IV SCH (14:00)
--- NOTE | 2018-04-03 14:05 | PN ---
Subjective Date of Service: 04/03/18 Interval History: Pt is just post op in ICU, mildly sedated. Pain tx with DEVELOPMENT ADMINISTRATOR Past Medical History: Unchanged from Admission Objective Active Medications: Acetaminophen (Tylenol Tab*) 650 mg PO Q4H PRN PRN Reason: FEVER/PAIN Last Admin: 03/31/18 14:20 Dose: 650 mg Sodium Chloride (Ns 0.9% 1000 Ml*) 1,000 mls @ 80 mls/hr IV PER RATE ROAS Last Admin: 04/03/18 02:38 Dose: 80 mls/hr Morphine Sulfate (Morphine Electric Installer Adult* 5 Mg/Ml) 30 mls @ 0 mls/hr DEVELOPMENT ADMINISTRATOR .change Q24H ROSA; Protocol Metoprolol Tartrate (Lopressor Iv*) 5 mg IV Q6H [facility]A Naloxone HCl (Narcan*) 0.08 mg IV PUSH .Q2MIN PRN PRN Reason: OVERSEDATION Nitroglycerin (Nitroglycerin Tab 0.4 Mg*) 0.4 mg SL Q5M PRN PRN Reason: PAIN - CHEST Ondansetron HCl (Zofran Inj*) 4 mg IV Q6H PRN PRN Reason: NAUSEA Last Admin: 04/01/18 16:45 Dose: 4 mg Pantoprazole Sodium (Protonix Iv*) 40 mg IV DAILY [facility] Vital Signs - 8 hr 04/03/18 04/03/18 04/03/18 11:24 11:25 11:30 Temperature 96.8 F Pulse Rate 62 68 64 Respiratory 20 20 Rate Blood Pressure 134/71 135/71 134/77 (mmHg) O2 Sat by Pulse 95 96 89 Oximetry 04/03/18 04/03/18 04/03/18 11:35 11:40 11:45 Temperature Pulse Rate 59 78 63 Respiratory 19 17 16 Rate Blood Pressure 128/60 126/69 123/68 (mmHg) O2 Sat by Pulse 95 98 97 Oximetry 04/03/18 04/03/18 04/03/18 11:49 11:50 12:00 Temperature Pulse Rate 79 66 84 Respiratory 23 13 17 Rate Blood Pressure 134/71 143/74 (mmHg) O2 Sat by Pulse 97 98 93 Oximetry 04/03/18 04/03/18 04/03/18 12:15 12:30 12:32 Temperature 97.7 F 97.4 F Pulse Rate 70 71 Respiratory 11 12 Rate Blood Pressure 135/73 135/78 (mmHg) O2 Sat by Pulse 95 97 Oximetry 04/03/18 12:34 Temperature Pulse Rate 71 Respiratory Rate Blood Pressure 135/78 (mmHg) O2 Sat by Pulse 96 Oximetry Oxygen Devices in Use Now: OxyMask Appearance: 77 yo M in nAD, AAOx3, mild lethargy from sedation noted Eyes: No Scleral Icterus, PERRLA Ears/Nose/Mouth/Throat: NL Teeth, Lips, Gums, Mucous Membranes Moist Neck: NL Appearance and Movements; NL JVP, Trachea Midline Respiratory: Symmetrical Chest Expansion and Respiratory Effort, Clear to Auscultation Cardiovascular: NL Sounds; No Murmurs; No JVD, RRR Abdominal: - - midline incision with vac in place, BS hypoactive, soft, minimally tender -elo incision area Lymphatic: No Cervical Adenopathy Extremities: No Edema, No Clubbing, Cyanosis Skin: No Rash or Ulcers, No Nodules or Sclerosis Neurological: Alert and Oriented x 3, NL Muscle Strength and Tone Result Diagrams: 04/03/18 03:07 04/03/18 03:07 Additional Lab and Data: Lab Results 03/30/18 Range/Units 10:02 WBC 6.6 (3.5-10.8) 10^3/ul RBC 2.98 L (4.00-5.40) 10^6/ul Hgb 7.3 L (14.0-18.0) g/dl Hct 23 L (42-52) % MCV 77 L (80-94) fL MCH 24 L (27-31) pg MCHC 32 (31-36) g/dl RDW 16 H (10.5-15) % Plt Count 415 (150-450) 10^3/ul MPV 7.3 L (7.4-10.4) fL Neut % (Auto) 79.8 % Lymph % (Auto) 10.4 % [place] % (Auto) 7.2 % Eos % (Auto) 1.6 % Baso % (Auto) 1.0 % Absolute Neuts (auto) 5.3 (1.5-7.7) 10^3/ul Absolute Lymphs (auto) 0.7 L (1.0-4.8) 10^3/ul Absolute Monos (auto) 0.5 (0-0.8) 10^3/ul Absolute Eos (auto) 0.1 (0-0.6) 10^3/ul Absolute Basos (auto) 0.1 (0-0.2) 10^3/ul Absolute Nucleated RBC 0 10^3/ul Nucleated RBC % 0.1 Microbiology and Other Data: Microbiology 03/30/18 12:22 Urine Culture - Final Urine 03/30/18 10:37 Stool Occult Blood ([place]) - Final Stool Assess/Plan/Problems-Billing Assessment: 77 year old male here for GI bleed.CT shows small bowel mass causing partial SBO - Patient Problems (1) Mass of small intestine Comment: s/p resection by Dr. Sky on 04/03/18 Pt is NPO, Lopressor and Protonix converted to IV (2) GI bleed Comment: s/p EGD and colonoscopy on source of bleed identified CT on 04/01/18 shows partial SBO and small intestinal mass. s/p 5 units PRBC total. His Hct stable now. (3) BPH (benign prostatic hyperplasia) Comment: - Continue finasteride and tamsulosin (4) CAD (coronary artery disease) Comment: - Recent hospitalization for non stemi - Recent cath non obstuctive CAD. medical management appreciate DR. Navas consult. Doing well post op. Cont lopressor IV. Statin and ASA held when NPO (5) DVT prophylaxis Comment: - SCDs Status and Disposition: inpatient
[2018-04-03] MEDS: Pantoprazole IV* 40 MG IV SCH (14:32)
[2018-04-03] MEDS: Lactated Ringers 1000 ML Bag* 1,000 ML IV SCH (16:00)
[2018-04-03] MEDS: Cyanocobalamin TAB* 500 MCG PO SCH (17:41)
[2018-04-03] MEDS: Ferrous Sulfate TAB* 325 MG PO SCH (17:42)
[2018-04-03] MEDS: Pantoprazole TAB * 40 MG TAB PO SCH (17:42)
[2018-04-03] MEDS: Metoprolol Tartrate IV* 1 MG/ML 5 ML VIAL IV SCH (19:45)
--- NOTE | 2018-04-03 22:13 | OP ---
CC: [facility] * DATE OF OPERATION: 04/03/18 - ROOM #ICU-08 DATE OF : 38 SURGEON: Tom Sky MD VENEER MARKER: Carl Duran MD ANESTHESIOLOGIST: Dr. Sorensen. ANESTHESIA: General with local. PRE-OP DIAGNOSES: 1. Small bowel mass. 2. Iron deficiency anemia. 3. Abdominal pain. POST-OP DIAGNOSES: 1. Small bowel mass. 2. Iron deficiency anemia. 3. Abdominal pain. OPERATIVE PROCEDURE: Exploratory laparotomy, resection of small bowel mass with 2 small bowel anastomoses. ESTIMATED BLOOD LOSS: 100 cc. IV FLUIDS: 2150 cc crystalloid. URINE OUTPUT: 600 cc. SPECIMENS: 1. Small bowel mass with associated small bowel. 2. Incidental portions of resected small bowel sent separately. WOUND CLASSIFICATION: III. DRAINS: None. COMPLICATIONS: None. FINDINGS: The patient had a large mass involving the small bowel and several large associated apparent lymph nodes in the mesentery. The liver was unremarkable. There was no evidence of peritoneal disease or spread. The remainder of the small bowel was unremarkable as well as the colon. BRIEF HISTORY: Mr. Reggie Robles is a 77-year-old gentleman who was admitted several days ago with findings of abdominal discomfort, chest pain, and shortness of breath. He was found to be anemic and has a recent history of coronary artery disease, thus the chest discomfort which responded to blood transfusion. He underwent an upper and lower endoscopy which was unremarkable. He underwent a CT scan of the abdomen and pelvis which showed a large mass in the [id number] portion of the small bowel causing partial obstruction. After cardiac and GI evaluation, as well as medical assessment, the patient is being taken to the operating room for planned resection. The procedure was discussed with the patient and his and the risks that included but not limited to bleeding, infection, intraabdominal abscess formation, injury to peritoneal and retroperitoneal structures, anastomotic leak, possible ostomy, abdominal sepsis, the risk of myocardial infarction, congestive heart failure, and were all explained. DESCRIPTION OF PROCEDURE: Written informed consent was obtained, the abdomen was marked with indelible ink and preoperative antibiotics were administered. The patient was taken to the operating room, placed in the supine position. Sequential compression devices and a warming blanket were applied. A left radial arterial catheter was placed per Anesthesia. General anesthesia was administered. A Byers catheter was inserted without difficulty. The abdomen was prepped and draped in the usual sterile fashion. Time-out verification was completed. Initially, a vertical incision was then made that started above the umbilicus and the peritoneal cavity was entered under direct vision without difficulty. There was no evidence of ascites. The liver was palpated and visualized. There was a small hemangioma in the left lateral lobe of the liver on the surface. There was no other evidence of disease. The gallbladder was unremarkable. The stomach and duodenum were unremarkable. It was obvious when evaluating in the upper midabdomen was a large mass involving multiple loops of small bowel and small bowel mesentery. On identification of the ligament of Treitz, we were able to follow the bowel distally for about 3 feet before the loop entered into the firm indurated mass, most certainly malignant, and in all, there were three separate loops of small bowel that were involved with the mass, and very difficult to identify the exact source of the growth. The colon was identified. The appendix was normal. The right colon, transverse colon, descending colon, and rectosigmoid were palpated. It was unremarkable. There was no evidence of peritoneal disease or ascites. After careful evaluation, decision was made to divide the proximal small bowel that had entered the mass with the CHAPARRITA stapler. The efferent portion of this loop was also then divided and then about 12 inches or so of small bowel, the second loop was adherent to the mass and not able to be resected. Likewise, another 3 to 4 feet of small bowel within a loop and a third portion of small bowel became involved with a mass, the efferent limb leading to the terminal ileum of about 8 to 10 inches prior to the cecum. Also noted were 2 areas, one at the transverse colon, the second at the sigmoid colon where there was some omentum which was stuck to the mass, but this was not involved and the LigaSure was used to separate the colon off the mass. There was no other colonic involvement. We sequentially then divided the each loop of small bowel in the afferent and efferent location with the CHAPARRITA 80 stapler. In doing so, this allowed us to identify the mass more clearly as well as what appeared to be 2 large lymph nodes in the mesentery. Fortunately, this was fairly distal in the mesentery of the small bowel and we were able to divide the mesentery sequentially with using both the LigaSure device as well as 2-0 Vicryl LigaSure to remove the mass entirely as well as the 2 large lymph nodes. No obvious gross disease was left behind. The specimen was then sent and was labeled with a double stitch distally. Careful evaluation of the remaining small bowel noted 3 separate segments, the longest being the proximal segment. The second segment was only about 10 inches long or so and I made a decision to remove this to reduce the number of small bowel anastomosis to be performed, not feeling that this would interfere with the long- term function of his bowel in light of the fact the relatively small amount of bowel that had been resected with the mass. This was then done and sent off and labeled as an incidental small bowel portion. We then proceeded to perform an anastomosis with the proximal 2 segments in a side- to-side fashion using the CHAPARRITA 80 stapler with a common red closed with a TA 90 blue stapler. The suture line was reinforced with interrupted with 3-0 silk sutures. Mesenteric rent was closed with a running 3- 0 Vicryl suture. The second small bowel anastomosis was also fashioned in a similar technique and this was only approximately 4 to 6 inches proximal to the ileocecal valve, but was performed without interference with the valve itself. The CHAPARRITA 80 stapler was then used and closed and the common rent was closed with a TA 90 stapler. The mesenteric rent was closed with a running 3-0 Vicryl suture. The entire abdomen was then irrigated. All sponge and needle counts as well as laparotomy pad counts were reported to be as correct. The midline incision was then closed with interrupted #1 Vicryl suture. The skin was approximated with a stapling device. The Prevena wound care VAC device was then placed over the skin romel. The patient tolerated the procedure well, was taken to the recovery room in stable condition. [id number]/[facility] #: [id number] [facility]CHIATRIC CENTERRadha
[2018-04-04] MEDS: Metoprolol Tartrate IV* 1 MG/ML 5 ML VIAL IV SCH ×4 (00:34→17:19)
[2018-04-04 06:49] LABS: Hematocrit 33 % (42-52); Hemoglobin 10.6 g/dl (14.0-18.0); Mean Corpuscular HGB Conc 32 g/dl (31-36); Mean Corpuscular Hemoglobin 26 pg (27-31); Mean Corpuscular Volume 81 fL (80-94); Mean Platelet Volume 7.8 fL (7.4-10.4); Platelet Count 228 10^3/ul (150-450); Red Blood Count 4.09 10^6/ul (4.00-5.40); Red Cell Distribution Width 18 % (10.5-15); White Blood Count 12.3 10^3/ul (3.5-10.8)
[2018-04-04 06:59] LABS: BUN/Creatinine Ratio 18.8 (8-20); Calcium 8.8 mg/dL (8.6-10.3); EGFR African American 91.7 (>60); EGFR Non-African American 75.8 (>60); Magnesium 1.8 mg/dL (1.9-2.7); Potassium 4.3 mmol/L (3.5-5.0)
[2018-04-04] MEDS ORDERED: Magnesium Sulfate 1 GM IV* 1 GM/100 ML BAG IV ONE (08:00)
[2018-04-04] MEDS: Pantoprazole IV* 40 MG IV SCH (08:10)
--- NOTE | 2018-04-04 09:57 | PN ---
Subjective Date of Service: 04/04/18 Interval History: Pt feels well. On morphine OFFSET PRINTING OPERATOR for post op pain-well controlled Past Medical History: Unchanged from Admission Objective Active Medications: Acetaminophen (Tylenol Tab*) 650 mg PO Q4H PRN PRN Reason: FEVER/PAIN Last Admin: 03/31/18 14:20 Dose: 650 mg Morphine Sulfate (Morphine Set Staff Fitter Adult* 5 Mg/Ml) 30 mls @ 0 mls/hr OFFSET PRINTING OPERATOR .change Q24H PENDING SALE TO [facility]; Protocol Last Admin: 04/03/18 15:59 Dose: 1 mls/hr Lactated Ringer's (Lactated Ringers 1000 Ml Bag*) 1,000 mls @ 75 mls/hr IV PER RATE [facility] TO [facility] Last Admin: 04/03/18 16:00 Dose: 75 mls/hr Metoprolol Tartrate (Lopressor Iv*) 2.5 mg IV Q6H [facility]END[facility] TO [facility] Last Admin: 04/04/18 06:35 Dose: Not Given Naloxone HCl (Narcan*) 0.08 mg IV PUSH .Q2MIN PRN PRN Reason: OVERSEDATION Nitroglycerin (Nitroglycerin Tab 0.4 Mg*) 0.4 mg SL Q5M PRN PRN Reason: PAIN - CHEST Ondansetron HCl (Zofran Inj*) 4 mg IV Q6H PRN PRN Reason: NAUSEA Last Admin: 04/01/18 16:45 Dose: 4 mg Pantoprazole Sodium (Protonix Iv*) 40 mg IV DAILY [facility] Last Admin: 04/04/18 08:10 Dose: 40 mg Vital Signs - 8 hr 04/04/18 04/04/18 04/04/18 02:00 03:00 04:00 Temperature Pulse Rate 66 74 72 Respiratory 17 14 17 Rate Blood Pressure 100/56 117/67 102/57 (mmHg) O2 Sat by Pulse 95 95 97 Oximetry 04/04/18 04/04/18 04/04/18 04:29 04:30 05:00 Temperature Pulse Rate 67 Respiratory 22 16 Rate Blood Pressure 108/56 (mmHg) O2 Sat by Pulse 95 95 Oximetry 04/04/18 04/04/18 04/04/18 05:15 05:58 06:00 Temperature Pulse Rate 66 Respiratory 16 15 12 Rate Blood Pressure 108/59 (mmHg) O2 Sat by Pulse 97 Oximetry 04/04/18 04/04/18 04/04/18 07:00 08:00 09:00 Temperature 97.4 F Pulse Rate 58 67 76 Respiratory 13 17 25 Rate Blood Pressure 116/56 110/63 113/59 (mmHg) O2 Sat by Pulse 97 98 93 Oximetry 04/04/18 09:50 Temperature Pulse Rate Respiratory 19 Rate Blood Pressure (mmHg) O2 Sat by Pulse Oximetry Oxygen Devices in Use Now: Nasal Cannula Appearance: 77 yo M in NAD, AAOx3 Eyes: No Scleral Icterus, PERRLA Ears/Nose/Mouth/Throat: NL Teeth, Lips, Gums, Mucous Membranes Moist Neck: NL Appearance and Movements; NL JVP, Trachea Midline Respiratory: Symmetrical Chest Expansion and Respiratory Effort, Clear to Auscultation Cardiovascular: NL Sounds; No Murmurs; No JVD, RRR Abdominal: - - soft, minimally tender around incision site, BS+, midline incision with Vac dressing applied Lymphatic: No Cervical Adenopathy Extremities: No Edema, No Clubbing, Cyanosis Skin: No Rash or Ulcers, No Nodules or Sclerosis Neurological: Alert and Oriented x 3, NL Muscle Strength and Tone - Nutrition: Malnutrition Diagnosis/Plan Malnutrition Assessment by Registered Dietitian: Malnutrition Assessment Clinical Characteristics Acute,Moderate Malnutrition Assessment: - wt loss >7.5% in past three months Criteria - po intake <75% EEE x 7 days Malnutrition Assessment: 1. NPO + IVFs, electrolyte replacement as Interventions appropriate 2. no plans for TPN at this time per discussion w/Dr Sky 3. follow GI function, surgery progress notes, and ability to advance post-op diet to clear liquids within next 24-48 hrs 4. snacks and supplements as appropriate when diet advances Malnutrition Assessment: Goals 1. pt will tolerate post-op diet progression without adverse GI effects 2. adequate po intake to maintain stable wt, lean body mass, and hydration 3. achieve and maintain serum electrolytes levels WNL 4. achieve and maintain regulated bowel pattern without c/o constipation (or diarrhea) Result Diagrams: 04/04/18 06:15 04/04/18 06:15 Additional Lab and Data: Lab Results 03/30/18 Range/Units 10:02 WBC 6.6 (3.5-10.8) 10^3/ul RBC 2.98 L (4.00-5.40) 10^6/ul Hgb 7.3 L (14.0-18.0) g/dl Hct 23 L (42-52) % MCV 77 L (80-94) fL MCH 24 L (27-31) pg MCHC 32 (31-36) g/dl RDW 16 H (10.5-15) % Plt Count 415 (150-450) 10^3/ul MPV 7.3 L (7.4-10.4) fL Neut % (Auto) 79.8 % Lymph % (Auto) 10.4 % [place] % (Auto) 7.2 % Eos % (Auto) 1.6 % Baso % (Auto) 1.0 % Absolute Neuts (auto) 5.3 (1.5-7.7) 10^3/ul Absolute Lymphs (auto) 0.7 L (1.0-4.8) 10^3/ul Absolute Monos (auto) 0.5 (0-0.8) 10^3/ul Absolute Eos (auto) 0.1 (0-0.6) 10^3/ul Absolute Basos (auto) 0.1 (0-0.2) 10^3/ul Absolute Nucleated RBC 0 10^3/ul Nucleated RBC % 0.1 Microbiology and Other Data: Microbiology 03/30/18 12:22 Urine Culture - Final Urine 03/30/18 10:37 Stool Occult Blood ([place]) - Final Stool Assess/Plan/Problems-Billing Assessment: 77 year old male here for GI bleed.CT shows small bowel mass causing partial SBO - Patient Problems (1) Mass of small intestine Comment: s/p resection by Dr. Sky on 04/03/18 Pt is on sips of clears, cont Lopressor and Protonix converted to IV (2) GI bleed Comment: s/p EGD and colonoscopy on source of bleed identified CT on 04/01/18 shows partial SBO and small intestinal mass. s/p 5 units PRBC total. His Hct stable now. (3) BPH (benign prostatic hyperplasia) Comment: - restart finasteride and tamsulosin Pt has h/o urinary retention anf Byers x 3 weeks in February 2018 (4) CAD (coronary artery disease) Comment: - Recent hospitalization for NSTEMI - Recent cath non obstuctive CAD. medical management appreciate DR. Navas consult. Doing well post op. Cont lopressor IV. Statin and ASA held postop (5) DVT prophylaxis Comment: HSQ will be started Status and Disposition: inpatient
--- NOTE | 2018-04-04 10:49 | PN ---
Progress Note - Progress Note Date of Service: 04/04/18 SOAP: Subjective: Doing well-awake and alert Pain adequately controlled with SASH REPAIRER No CP or SOB Objective: Temp Pulse Resp BP Pulse Ox 97.4 F 76 19 113/59 93 04/04/18 08:00 04/04/18 09:00 04/04/18 09:50 04/04/18 09:00 04/04/18 09:00 Intake & Output 04/02/18 04/03/18 04/04/18 04/05/18 06:59 06:59 06:59 06:59 Intake Total 4221 480 3231 Output Total 0 1100 1470 175 Balance 4221 -620 1761 -175 Weight 195 lb 194 lb 14.218 oz Intake: IV Fluids 3762 061 7336 LR 2419 NS (0.9%) 1794 141 Protonix 174 480 IVPB 873 596 LR 596 NS (0.9%) 802 Protonix 71 Oral 1380 0 30 Byers Irrigate Amount 45 Output: Urine 0 1100 Byers 1470 175 Other: Estimated Void Medium # Bowel Movements 0 # Voids 3 2 PEX: Comfortable Abd is soft and non-distended. Dressing intact. Bowel sounds not present. Laboratory Results - last 24 hr 04/01/18 04/02/18 04/04/18 05:17 06:00 06:15 WBC 12.3 H RBC 4.09 Hgb 10.6 L Hct 33 L MCV 81 MCH 26 L MCHC 32 RDW 18 H Plt Count 228 MPV 7.8 Haptoglobin 181 Sodium Potassium Chloride Carbon Dioxide Anion Gap BUN Creatinine Est GFR ( Amer) Est GFR (Non-Af Amer) BUN/Creatinine Ratio Glucose Calcium Magnesium Crossmatch See Detail 04/04/18 06:15 WBC RBC Hgb Hct MCV MCH MCHC RDW Plt Count MPV Haptoglobin Sodium 139 Potassium 4.3 Chloride 105 Carbon Dioxide 29 Anion Gap 5 BUN 18 Creatinine 0.96 Est GFR ( Amer) 91.7 Est GFR (Non-Af Amer) 75.8 BUN/Creatinine Ratio 18.8 Glucose 139 H Calcium 8.8 Magnesium 1.8 L Crossmatch Assessment: POD#1 s/p exlap small bowel/mass resection-path pending Plan: OOB Ice chips for now Pulmonary toilet OK to start subq heparin Tx to SSU
[2018-04-04 10:58] LABS: ABS Basophils 0.3 10^3/ul (0-0.2); ABS Eosinophils 0 10^3/ul (0-0.6); ABS Lymphocytes 0.6 10^3/ul (1.0-4.8); ABS Monocytes 0.7 10^3/ul (0-0.8); ABS Neutrophils 11.6 10^3/ul (1.5-7.7); ABS Nucleated RBC 0 10^3/ul; Eosinophil % 0 %; Hematocrit 34 % (42-52); Lymphocyte % 4.4 %; Mean Corpuscular HGB Conc 33 g/dl (31-36); Mean Corpuscular Hemoglobin 26 pg (27-31); Mean Corpuscular Volume 81 fL (80-94); Mean Platelet Volume 7.7 fL (7.4-10.4); Nucleated Red Blood Cells % 0; Platelet Count 264 10^3/ul (150-450); Red Blood Count 4.15 10^6/ul (4.00-5.40); Red Cell Distribution Width 18 % (10.5-15); White Blood Count 13.2 10^3/ul (3.5-10.8)
[2018-04-04 11:10] LABS: Activated Partial Thrombo Time 30.2 seconds (26.0-36.3); INR 1.29 (0.77-1.02)
[2018-04-04 11:19] LABS: EGFR African American 91.7 (>60); EGFR Non-African American 75.8 (>60)
[2018-04-04] MEDS: Heparin VIAL(*) 5000 UNITS/ML VIAL (FIVE THOUSAND) SUBCUT SCH ×2 (14:03→21:59)
[2018-04-04] MEDS ORDERED: Morphine INJ* 2 MG/ML 1 ML SYRINGE (TWO MG - NEW SYRINGE VERSION) IV PRN (15:29)
[2018-04-04] MEDS ORDERED: NS 0.9% 500 ML* 500 ML IV ONE (16:03)
[2018-04-04] MEDS: Tamsulosin CAP* 0.4 MG PO SCH (21:59)
[2018-04-04] MEDS: Morphine INJ* 2 MG/ML 1 ML SYRINGE (TWO MG - NEW SYRINGE VERSION) IV PRN (22:00)
[2018-04-05] MEDS: Metoprolol Tartrate IV* 1 MG/ML 5 ML VIAL IV SCH ×4 (00:41→18:21)
[2018-04-05] MEDS: Morphine INJ* 2 MG/ML 1 ML SYRINGE (TWO MG - NEW SYRINGE VERSION) IV PRN ×3 (06:05→21:14)
[2018-04-05] MEDS: Heparin VIAL(*) 5000 UNITS/ML VIAL (FIVE THOUSAND) SUBCUT SCH ×3 (06:09→21:17)
[2018-04-05] MEDS: Lactated Ringers 1000 ML Bag* 1,000 ML IV SCH ×2 (06:12→21:12)
[2018-04-05 06:34] LABS: ABS Basophils 0 10^3/ul (0-0.2); ABS Eosinophils 0.1 10^3/ul (0-0.6); ABS Lymphocytes 0.7 10^3/ul (1.0-4.8); ABS Monocytes 0.5 10^3/ul (0-0.8); ABS Neutrophils 7.1 10^3/ul (1.5-7.7); ABS Nucleated RBC 0 10^3/ul; Eosinophil % 0.7 %; Hematocrit 29 % (42-52); Hemoglobin 9.2 g/dl (14.0-18.0); Lymphocyte % 8.7 %; Mean Corpuscular HGB Conc 32 g/dl (31-36); Mean Corpuscular Hemoglobin 26 pg (27-31); Mean Corpuscular Volume 81 fL (80-94); Mean Platelet Volume 7.6 fL (7.4-10.4); Nucleated Red Blood Cells % 0; Platelet Count 208 10^3/ul (150-450); Red Blood Count 3.57 10^6/ul (4.00-5.40); Red Cell Distribution Width 19 % (10.5-15); White Blood Count 8.4 10^3/ul (3.5-10.8)
[2018-04-05 06:51] LABS: Calcium 8.3 mg/dL (8.6-10.3); EGFR African American 113.1 (>60); EGFR Non-African American 93.5 (>60); Magnesium 1.8 mg/dL (1.9-2.7); Potassium 3.8 mmol/L (3.5-5.0)
[2018-04-05] MEDS ORDERED: Magnesium Sulfate 2 GM IV* 2 GM/50 ML BAG IVPB ONE (08:00)
[2018-04-05] MEDS: Finasteride TAB* 5 MG PO SCH (08:13)
[2018-04-05] MEDS: Pantoprazole IV* 40 MG IV SCH (08:13)
--- NOTE | 2018-04-05 08:25 | PN ---
Subjective Date of Service: 04/05/18 Interval History: Pt c/o mild post op pain. Has not passed flatus o BM. Denies SOB/CP Past Medical History: Unchanged from Admission Objective Active Medications: Acetaminophen (Tylenol Tab*) 650 mg PO Q4H PRN PRN Reason: FEVER/PAIN Last Admin: 03/31/18 14:20 Dose: 650 mg Finasteride (Proscar Tab*) 5 mg PO DAILY [facility] Last Admin: 04/05/18 08:13 Dose: 5 mg Heparin Sodium (Porcine) (Heparin Vial(*)) 5,000 units SUBCUT Q8HR [facility] Last Admin: 04/05/18 06:09 Dose: 5,000 units Lactated Ringer's (Lactated Ringers 1000 Ml Bag*) 1,000 mls @ 75 mls/hr IV PER RATE [facility] Last Admin: 04/05/18 06:12 Dose: 75 mls/hr Magnesium Sulfate (Magnesium Sulfate 2 Gm Iv*) 2 gm in 50 mls @ 50 mls/hr IVPB ONCE ONE Stop: 04/05/18 08:59 Last Admin: 04/05/18 08:11 Dose: 50 mls/hr Metoprolol Tartrate (Lopressor Iv*) 2.5 mg IV Q6H [facility] Last Admin: 04/05/18 06:18 Dose: Not Given Morphine Sulfate (Morphine Inj ((Syringe))*) 2 mg IV Q2H PRN PRN Reason: PAIN Last Admin: 04/05/18 06:05 Dose: 2 mg Naloxone HCl (Narcan*) 0.08 mg IV PUSH .Q2MIN PRN PRN Reason: OVERSEDATION Nitroglycerin (Nitroglycerin Tab 0.4 Mg*) 0.4 mg SL Q5M PRN PRN Reason: PAIN - CHEST Ondansetron HCl (Zofran Inj*) 4 mg IV Q6H PRN PRN Reason: NAUSEA Last Admin: 04/01/18 16:45 Dose: 4 mg Pantoprazole Sodium (Protonix Iv*) 40 mg IV DAILY [facility] Last Admin: 04/05/18 08:13 Dose: 40 mg Tamsulosin HCl (Flomax Cap*) 0.4 mg PO BEDTIME [facility] Last Admin: 04/04/18 21:59 Dose: 0.4 mg Vital Signs - 8 hr 04/05/18 04/05/18 04/05/18 03:45 04:05 06:05 Temperature 98.3 F Pulse Rate 75 Respiratory 16 16 Rate Blood Pressure 136/63 (mmHg) O2 Sat by Pulse 94 94 Oximetry 04/05/18 07:15 Temperature Pulse Rate Respiratory 18 Rate Blood Pressure (mmHg) O2 Sat by Pulse Oximetry Oxygen Devices in Use Now: Nasal Cannula Appearance: 77 yo M in nAD, aAOx3 Eyes: No Scleral Icterus, PERRLA Ears/Nose/Mouth/Throat: NL Teeth, Lips, Gums, Mucous Membranes Moist Neck: NL Appearance and Movements; NL JVP, Trachea Midline Respiratory: Symmetrical Chest Expansion and Respiratory Effort, Clear to Auscultation Cardiovascular: NL Sounds; No Murmurs; No JVD, RRR Abdominal: - - soft, minimally tender around incision site, midline incision covered with vac dressing Lymphatic: No Cervical Adenopathy Skin: No Nodules or Sclerosis Neurological: Alert and Oriented x 3, NL Muscle Strength and Tone - Nutrition: Malnutrition Diagnosis/Plan Malnutrition Assessment by Registered Dietitian: Malnutrition Assessment Clinical Characteristics Acute,Moderate Malnutrition Assessment: - wt loss >7.5% in past three months Criteria - po intake <75% EEE x 7 days Malnutrition Assessment: 1. NPO + IVFs, electrolyte replacement as Interventions appropriate 2. no plans for TPN at this time per discussion w/Dr Sky 3. follow GI function, surgery progress notes, and ability to advance post-op diet to clear liquids within next 24-48 hrs 4. snacks and supplements as appropriate when diet advances Malnutrition Assessment: Goals 1. pt will tolerate post-op diet progression without adverse GI effects 2. adequate po intake to maintain stable wt, lean body mass, and hydration 3. achieve and maintain serum electrolytes levels WNL 4. achieve and maintain regulated bowel pattern without c/o constipation (or diarrhea) Result Diagrams: 04/05/18 06:20 04/05/18 06:20 Additional Lab and Data: Lab Results 03/30/18 Range/Units 10:02 WBC 6.6 (3.5-10.8) 10^3/ul RBC 2.98 L (4.00-5.40) 10^6/ul Hgb 7.3 L (14.0-18.0) g/dl Hct 23 L (42-52) % MCV 77 L (80-94) fL MCH 24 L (27-31) pg MCHC 32 (31-36) g/dl RDW 16 H (10.5-15) % Plt Count 415 (150-450) 10^3/ul MPV 7.3 L (7.4-10.4) fL Neut % (Auto) 79.8 % Lymph % (Auto) 10.4 % [place] % (Auto) 7.2 % Eos % (Auto) 1.6 % Baso % (Auto) 1.0 % Absolute Neuts (auto) 5.3 (1.5-7.7) 10^3/ul Absolute Lymphs (auto) 0.7 L (1.0-4.8) 10^3/ul Absolute Monos (auto) 0.5 (0-0.8) 10^3/ul Absolute Eos (auto) 0.1 (0-0.6) 10^3/ul Absolute Basos (auto) 0.1 (0-0.2) 10^3/ul Absolute Nucleated RBC 0 10^3/ul Nucleated RBC % 0.1 Microbiology and Other Data: Microbiology 03/30/18 12:22 Urine Culture - Final Urine 03/30/18 10:37 Stool Occult Blood ([place]) - Final Stool Assess/Plan/Problems-Billing Assessment: 77 year old male here for GI bleed.CT shows small bowel mass causing partial SBO - Patient Problems (1) Mass of small intestine Comment: s/p resection by Dr. Sky on 04/03/18 Pt is on sips of clears, cont Lopressor and Protonix converted to IV (2) GI bleed Comment: s/p EGD and colonoscopy on source of bleed identified CT on 04/01/18 shows partial SBO and small intestinal mass. s/p 5 units PRBC total. His Hct stable now. (3) BPH (benign prostatic hyperplasia) Comment: - restarted finasteride and tamsulosin Pt has h/o urinary retention anf Byers x 3 weeks in February 2018 -will d/c Byers today (4) CAD (coronary artery disease) Comment: - Recent hospitalization for NSTEMI - Recent cath non obstuctive CAD. medical management appreciate DR. Navas consult. Doing well post op. Cont lopressor IV. Statin and ASA held postop (5) DVT prophylaxis Comment: HSQ Status and Disposition: inpatient
[2018-04-05] MEDS: Aspirin EC TAB* 81 MG TAB.EC PO SCH (09:12)
--- NOTE | 2018-04-05 10:56 | PN ---
Progress Note - Progress Note Date of Service: 04/05/18 SOAP: Subjective: Doing well-minimal pain Wants to get up No N/V Objective: Temp Pulse Resp BP Pulse Ox 98.3 F 78 18 143/62 95 04/05/18 07:28 04/05/18 07:28 04/05/18 09:48 04/05/18 07:28 04/05/18 07:28 Intake & Output 04/03/18 04/04/18 04/05/18 04/06/18 06:59 06:59 06:59 06:59 Intake Total 480 3231 1890 Output Total 1100 1470 1280 800 Balance -620 1761 610 -800 Weight 194 lb 14.218 oz Intake: IV Fluids 480 2560 1634 LR 2419 1358 NS (0.9%) 141 276 Protonix 480 IVPB 596 LR 596 Medicated IV 110 GEN - Magnesium 110 IV Narcotic Infusion 26 Morphine 26 Oral 0 30 120 Ann Irrigate Amount 45 Output: Urine 1100 Ann 1470 1280 800 Other: # Voids 2 PEX: Comfortable Abd is soft and slightly distended. Few bowel sounds are present. Wound vac in place. Laboratory Results - last 24 hr 04/04/18 04/04/18 04/04/18 10:30 10:30 10:30 WBC 13.2 H RBC 4.15 Hgb 11.0 L Hct 34 L MCV 81 MCH 26 L MCHC 33 RDW 18 H Plt Count 264 MPV 7.7 Neut % (Auto) 88.3 Lymph % (Auto) 4.4 [place] % (Auto) 5.2 Eos % (Auto) 0 Baso % (Auto) 2.1 Absolute Neuts (auto) 11.6 H Absolute Lymphs (auto) 0.6 L Absolute Monos (auto) 0.7 Absolute Eos (auto) 0 Absolute Basos (auto) 0.3 H Absolute Nucleated RBC 0 Nucleated RBC % 0 INR (Anticoag Therapy) 1.29 H APTT 30.2 Sodium Potassium Chloride Carbon Dioxide Anion Gap BUN 21 Creatinine 0.96 Est GFR ( Amer) 91.7 Est GFR (Non-Af Amer) 75.8 BUN/Creatinine Ratio Glucose Calcium Magnesium 04/05/18 04/05/18 06:20 06:20 WBC 8.4 RBC 3.57 L Hgb 9.2 L Hct 29 L MCV 81 MCH 26 L MCHC 32 RDW 19 H Plt Count 208 MPV 7.6 Neut % (Auto) 84.0 Lymph % (Auto) 8.7 [place] % (Auto) 6.4 Eos % (Auto) 0.7 Baso % (Auto) 0.2 Absolute Neuts (auto) 7.1 Absolute Lymphs (auto) 0.7 L Absolute Monos (auto) 0.5 Absolute Eos (auto) 0.1 Absolute Basos (auto) 0 Absolute Nucleated RBC 0 Nucleated RBC % 0 INR (Anticoag Therapy) APTT Sodium 140 Potassium 3.8 Chloride 108 Carbon Dioxide 26 Anion Gap 6 BUN 20 Creatinine 0.80 Est GFR ( Amer) 113.1 Est GFR (Non-Af Amer) 93.5 BUN/Creatinine Ratio 25.0 H Glucose 83 Calcium 8.3 L Magnesium 1.8 L Assessment: POD# 2 s/p exlap-small bowel mass resection CAD Ileus Plan: D/C ann Sips of clears Subq heparin ASA Increase activity, pul toilet Await pathology All discussed with patient and at the beside this morning.
--- NOTE | 2018-04-05 12:52 | PN ---
Progress Note - Progress Note Date of Service: 04/05/18 SOAP: Subjective: Pt is resting comfortably on the hospital bed. He reports that he has minimal pain today. He says that at a base line he is at a 2/10 pain level which he describes as being pain related to his incision. He has begun ambulating around his room, but states ambulation increases his pain to an 8/10. He states he is sleeping well and is hoping to be "walking around soon". He is anxiously awaiting his pathology report. He is diligent with his incentive spirometer and has slowly introduced a liquid diet. He denies flatus or BM at this time but has no difficulties with urination. He denies fever, nausea, vomiting, chest pain, SOB. Objective: Vital Signs Temp 98.1 F 04/05/18 11:35 Pulse 84 04/05/18 11:35 Resp 16 04/05/18 11:35 BP 135/66 04/05/18 11:35 Pulse Ox 94 04/05/18 11:35 Intake & Output 04/04/18 04/05/18 04/05/18 18:59 06:59 18:59 Intake Total 697 1193 Output Total 205 1075 800 Balance 492 118 -800 Intake: IV Fluids 531 1103 LR 455 903 NS (0.9%) 76 200 Medicated IV 110 GEN - Magnesium 110 IV Narcotic Infusion 26 Morphine 26 Oral 30 90 Output: Byers 205 1075 800 General: Pt shows no signs of distress. He is resting comfortably on his hospital bed. A&O x 3 Heart: S1, S2. RRR. no M/R/G Lungs: Diminished lung sounds throughout, lungs clear to auscultation. Abdomen: Abdomen has no signs of distention. Midline incision shows no signs of infection. Dressing is clean dry and intact. No excessive drainage is noted. Prevena is in place. No bowel sounds noted with auscultation. Palpation reveals mild pain to the lower abdomen. Extremities: No edema is noted of the lower extremities. No calf pain to palpation. Assessment: [POD # 2 s/p exlap-small bowel mass resection. Paralytic ileus] Plan: [-Continue pain management -continue clears diet -subq heparin -ASA -increase activity as tolerated -awaiting pathology report on bowel mass]
[2018-04-05] MEDS: Acetaminophen TAB* 325 MG PO PRN (13:52)
[2018-04-05] MEDS ORDERED: Atorvastatin* 80 MG TAB PO ONE (21:00)
[2018-04-05] MEDS: Tamsulosin CAP* 0.4 MG PO SCH (21:13)
[2018-04-06] MEDS: Metoprolol Tartrate IV* 1 MG/ML 5 ML VIAL IV SCH ×2 (01:49→08:59)
[2018-04-06] MEDS: Heparin VIAL(*) 5000 UNITS/ML VIAL (FIVE THOUSAND) SUBCUT SCH ×3 (05:23→21:30)
[2018-04-06 06:08] LABS: ABS Basophils 0.1 10^3/ul (0-0.2); ABS Eosinophils 0.1 10^3/ul (0-0.6); ABS Lymphocytes 0.6 10^3/ul (1.0-4.8); ABS Monocytes 0.5 10^3/ul (0-0.8); ABS Neutrophils 5.9 10^3/ul (1.5-7.7); ABS Nucleated RBC 0 10^3/ul; Eosinophil % 1.9 %; Hematocrit 29 % (42-52); Hemoglobin 9.3 g/dl (14.0-18.0); Mean Corpuscular HGB Conc 32 g/dl (31-36); Mean Corpuscular Hemoglobin 26 pg (27-31); Mean Corpuscular Volume 80 fL (80-94); Mean Platelet Volume 7.5 fL (7.4-10.4); Nucleated Red Blood Cells % 0; Platelet Count 220 10^3/ul (150-450); Red Blood Count 3.59 10^6/ul (4.00-5.40); Red Cell Distribution Width 18 % (10.5-15); White Blood Count 7.2 10^3/ul (3.5-10.8)
[2018-04-06 06:24] LABS: BUN/Creatinine Ratio 19.7 (8-20); Calcium 8.4 mg/dL (8.6-10.3); EGFR Non-African American 99.2 (>60); Magnesium 1.8 mg/dL (1.9-2.7); Potassium 3.5 mmol/L (3.5-5.0)
[2018-04-06] MEDS ORDERED: Lactated Ringers 1000 ML Bag* 1,000 ML IV SCH (08:57)
[2018-04-06] MEDS: Aspirin EC TAB* 81 MG TAB.EC PO SCH (09:00)
[2018-04-06] MEDS: Pantoprazole IV* 40 MG IV SCH (09:00)
[2018-04-06] MEDS: Acetaminophen TAB* 325 MG PO PRN ×2 (09:00→21:28)
[2018-04-06] MEDS: Finasteride TAB* 5 MG PO SCH (09:00)
--- NOTE | 2018-04-06 09:19 | PN ---
Progress Note - Progress Note Date of Service: 04/06/18 SOAP: Subjective: Passing flatus and tolerating sips of clears Slept poorly last night Minimal pain Ambulated in halls a little Objective: Temp Pulse Resp BP Pulse Ox 98.9 F 66 16 165/70 98 04/06/18 07:19 04/06/18 07:19 04/06/18 07:19 04/06/18 07:19 04/06/18 07:19 Intake & Output 04/04/18 04/05/18 04/06/18 04/07/18 06:59 06:59 06:59 06:59 Intake Total 3231 1890 1843 Output Total 1470 1280 3180 200 Balance 1761 610 -1337 -200 Weight 194 lb 14.218 oz Intake: IV Fluids 2560 1634 1303 LR 2419 1358 1303 NS (0.9%) 141 276 IVPB 596 LR 596 Medicated IV 110 GEN - Magnesium 110 IV Narcotic Infusion 26 Morphine 26 Oral 30 120 540 Byers Irrigate Amount 45 Output: Urine 2380 200 Byers 1470 1280 800 PEX: Comfortable Abd is soft and slightly distended. Few bowel sounds are present. Wound vac in place. Laboratory Results - last 24 hr 04/06/18 04/06/18 05:57 05:57 WBC 7.2 RBC 3.59 L Hgb 9.3 L Hct 29 L MCV 80 MCH 26 L MCHC 32 RDW 18 H Plt Count 220 MPV 7.5 Neut % (Auto) 82.2 Lymph % (Auto) 8.0 [place] % (Auto) 7.1 Eos % (Auto) 1.9 Baso % (Auto) 0.8 Absolute Neuts (auto) 5.9 Absolute Lymphs (auto) 0.6 L Absolute Monos (auto) 0.5 Absolute Eos (auto) 0.1 Absolute Basos (auto) 0.1 Absolute Nucleated RBC 0 Nucleated RBC % 0 Sodium 139 Potassium 3.5 Chloride 105 Carbon Dioxide 29 Anion Gap 5 BUN 15 Creatinine 0.76 Est GFR ( Amer) 120.0 Est GFR (Non-Af Amer) 99.2 BUN/Creatinine Ratio 19.7 Glucose 111 H Calcium 8.4 L Magnesium 1.8 L Assessment: POD# 3 s/p exlap resection of small bowel mass CAD Ileus-resolving Appropriate mobilization of fluid Plan: Advance diet-clears KVO fluids-watch for fluid overload, normal renal function Increase activity, pulmonary toilet Sub q heparin Await pathology Discussed with patient and .
--- NOTE | 2018-04-06 10:58 | PN ---
Subjective Date of Service: 04/06/18 Interval History: Seen with at bedside Both would like to be present to hear results of path when it returns. in agreement with this plan +flatus and small BM OOB walking, no SOB/CP, N/V Past Medical History: Unchanged from Admission Objective Active Medications: Acetaminophen (Tylenol Tab*) 650 mg PO Q4H PRN PRN Reason: FEVER/PAIN Last Admin: 04/06/18 09:00 Dose: 650 mg Aspirin (Aspirin Ec Tab*) 81 mg PO DAILY [facility] Last Admin: 04/06/18 09:00 Dose: 81 mg Finasteride (Proscar Tab*) 5 mg PO DAILY [facility] Last Admin: 04/06/18 09:00 Dose: 5 mg Heparin Sodium (Porcine) (Heparin Vial(*)) 5,000 units SUBCUT Q8HR [facility] Last Admin: 04/06/18 05:23 Dose: 5,000 units Lactated Ringer's (Lactated Ringers 1000 Ml Bag*) 1,000 mls @ 0 mls/hr IV PER RATE [facility] Metoprolol Tartrate (Lopressor Tab*) 12.5 mg PO Q12HR [facility] Morphine Sulfate (Morphine Inj ((Syringe))*) 2 mg IV Q2H PRN PRN Reason: PAIN Last Admin: 04/05/18 21:14 Dose: 2 mg Naloxone HCl (Narcan*) 0.08 mg IV PUSH .Q2MIN PRN PRN Reason: OVERSEDATION Nitroglycerin (Nitroglycerin Tab 0.4 Mg*) 0.4 mg SL Q5M PRN PRN Reason: PAIN - CHEST Ondansetron HCl (Zofran Inj*) 4 mg IV Q6H PRN PRN Reason: NAUSEA Last Admin: 04/01/18 16:45 Dose: 4 mg Pantoprazole Sodium (Protonix Iv*) 40 mg IV DAILY [facility] Last Admin: 04/06/18 09:00 Dose: 40 mg Tamsulosin HCl (Flomax Cap*) 0.4 mg PO BEDTIME [facility] Last Admin: 04/05/18 21:13 Dose: 0.4 mg Vital Signs - 8 hr 04/06/18 04/06/18 04:42 07:19 Temperature 97.8 F 98.9 F Pulse Rate 65 66 Respiratory 16 16 Rate Blood Pressure 152/65 165/70 (mmHg) O2 Sat by Pulse 95 98 Oximetry Oxygen Devices in Use Now: None Appearance: sitting in chair, NAD Eyes: No Scleral Icterus, PERRLA Ears/Nose/Mouth/Throat: NL Teeth, Lips, Gums, Clear Oropharnyx Neck: NL Appearance and Movements; NL JVP Respiratory: Symmetrical Chest Expansion and Respiratory Effort, Clear to Auscultation Cardiovascular: RRR Abdominal: NL Sounds; No Tenderness; No Distention, - - midline insicion c/d/i Extremities: - - trace le edema Neurological: Alert and Oriented x 3 - Nutrition: Malnutrition Diagnosis/Plan Malnutrition Assessment by Registered Dietitian: Malnutrition Assessment Clinical Characteristics Acute,Moderate Malnutrition Assessment: - wt loss >7.5% in past three months Criteria - po intake <75% EEE x 7 days - mild clavicular and temporal muscle wasting ( noted 04/05) Malnutrition Assessment: 1. sips of clears + IVFs, electrolyte Interventions replacement as appropriate 2. snacks and supplements as appropriate when diet advances 3. if unable to advance past sips of clears by 04/06, suggest consider PPN base A Malnutrition Assessment: Goals 1. pt will tolerate post-op diet progression without adverse GI effects 2. adequate po intake to maintain stable wt, lean body mass, and hydration 3. achieve and maintain serum electrolytes levels WNL 4. achieve and maintain regulated bowel pattern without c/o constipation (or diarrhea) Result Diagrams: 04/06/18 05:57 04/06/18 05:57 Additional Lab and Data: Lab Results 03/30/18 Range/Units 10:02 WBC 6.6 (3.5-10.8) 10^3/ul RBC 2.98 L (4.00-5.40) 10^6/ul Hgb 7.3 L (14.0-18.0) g/dl Hct 23 L (42-52) % MCV 77 L (80-94) fL MCH 24 L (27-31) pg MCHC 32 (31-36) g/dl RDW 16 H (10.5-15) % Plt Count 415 (150-450) 10^3/ul MPV 7.3 L (7.4-10.4) fL Neut % (Auto) 79.8 % Lymph % (Auto) 10.4 % [place] % (Auto) 7.2 % Eos % (Auto) 1.6 % Baso % (Auto) 1.0 % Absolute Neuts (auto) 5.3 (1.5-7.7) 10^3/ul Absolute Lymphs (auto) 0.7 L (1.0-4.8) 10^3/ul Absolute Monos (auto) 0.5 (0-0.8) 10^3/ul Absolute Eos (auto) 0.1 (0-0.6) 10^3/ul Absolute Basos (auto) 0.1 (0-0.2) 10^3/ul Absolute Nucleated RBC 0 10^3/ul Nucleated RBC % 0.1 Microbiology and Other Data: Microbiology 03/30/18 12:22 Urine Culture - Final Urine 03/30/18 10:37 Stool Occult Blood ([place]) - Final Stool Assess/Plan/Problems-Billing Assessment: 77 year old male here for GI bleed.CT shows small bowel mass causing partial SBO s/p resection - Patient Problems (1) Postoperative anemia Comment: stable, trend (2) GI bleed Comment: s/p EGD and colonoscopy on source of bleed identified CT on 04/01/18 shows partial SBO and small intestinal mass. s/p 5 units PRBC total. His Hct stable now. Trend (3) Mass of small intestine Comment: s/p resection by Dr. Sky on 04/03/18 Pt is on sips of clears, cont Lopressor and Protonix converted to IV lopressor back to PO with hold parameters (4) BPH (benign prostatic hyperplasia) Comment: - restarted finasteride and tamsulosin Pt has h/o urinary retention anf Ann x 3 weeks in February 2018 ann out 04/05 (5) CAD (coronary artery disease) Comment: - Recent hospitalization for NSTEMI - Recent cath non obstuctive CAD. medical management appreciate DR. Navas consult. Doing well post op. Cont lopressor Statin and ASA restarted (6) Hypertension Code(s): I10 - ESSENTIAL (PRIMARY) HYPERTENSION SNOMED Code(s): 65923992 Comment: restart amlodipine 5 mg daily 04/06 lopressor 12.5 mg bid (7) DVT prophylaxis Comment: HSQ Status and Disposition: inpatient
[2018-04-06] MEDS: amLODIPine TAB* 5 MG PO SCH (12:17)
--- NOTE | 2018-04-06 15:06 | PN ---
Progress Note - Progress Note Date of Service: 04/06/18 SOAP: Subjective: [Pt states he is currently experiencing 1/10 pain at a baseline and 5/10 pain around his incision when he is "getting up". He has begun ambulating around the unit with a walker, completing 3 laps. He is tolerating a clears diet well. + flatus. No issues with bowel movements or urination at this time (2 bowel movements today). Pt denies fever, nausea, vomiting, chest pain, SOB.] Objective: [ Vital Signs Temp 97.8 F 04/06/18 11:40 Pulse 60 04/06/18 11:40 Resp 16 04/06/18 11:40 BP 128/57 04/06/18 11:40 Pulse Ox 96 04/06/18 11:40 Intake & Output 04/05/18 04/06/18 04/06/18 18:59 06:59 18:59 Intake Total 260 1583 350 Output Total 1805 1375 200 Balance -1545 208 150 Intake: IV Fluids 1303 LR 1303 Oral 260 280 350 Output: Urine 1005 1375 200 Byers 800 Other: # Bowel Movements 1 Estimated Stool Amount Medium General: Pt is resting comfortably on his hospital bed. No signs of distress. is in the room currently. Heart: S1,S2. No M/R/G. RRR. Lungs: Lungs are clear to auscultation. Abdomen: Wound vac is in place over mid line incision. Dressing is clean, dry and intact. Auscultation reveals normoactive bowel sounds. Pt complains of mild pain to palpation of the lower abdomen. Extremities: No swelling noted to the lower extremities.] Assessment: [POD #3 S/p exploratory laparotomy with resection of small bowel mass.] Plan: [-continue clears -continue ambulation and pulmonary toilet -awaiting pathology -continue subq heparin]
[2018-04-06] MEDS ORDERED: Atorvastatin* 80 MG TAB PO SCH (21:00)
[2018-04-06] MEDS: Tamsulosin CAP* 0.4 MG PO SCH (21:29)
[2018-04-06] MEDS: Metoprolol Tartrate TAB* 25 MG PO SCH (21:30)
[2018-04-07 05:11] LABS: ABS Basophils 0 10^3/ul (0-0.2); ABS Eosinophils 0.2 10^3/ul (0-0.6); ABS Lymphocytes 0.6 10^3/ul (1.0-4.8); ABS Monocytes 0.4 10^3/ul (0-0.8); ABS Neutrophils 5.1 10^3/ul (1.5-7.7); ABS Nucleated RBC 0 10^3/ul; Eosinophil % 2.6 %; Hematocrit 29 % (42-52); Hemoglobin 9.3 g/dl (14.0-18.0); Lymphocyte % 9.2 %; Mean Corpuscular HGB Conc 32 g/dl (31-36); Mean Corpuscular Hemoglobin 26 pg (27-31); Mean Corpuscular Volume 80 fL (80-94); Mean Platelet Volume 7.5 fL (7.4-10.4); Nucleated Red Blood Cells % 0; Platelet Count 209 10^3/ul (150-450); Red Blood Count 3.57 10^6/ul (4.00-5.40); Red Cell Distribution Width 18 % (10.5-15); White Blood Count 6.3 10^3/ul (3.5-10.8)
[2018-04-07 05:26] LABS: BUN/Creatinine Ratio 18.3 (8-20); Calcium 8.3 mg/dL (8.6-10.3); EGFR African American 129.8 (>60); EGFR Non-African American 107.3 (>60); Potassium 3.7 mmol/L (3.5-5.0)
[2018-04-07] MEDS: Heparin VIAL(*) 5000 UNITS/ML VIAL (FIVE THOUSAND) SUBCUT SCH (05:58)
[2018-04-07] MEDS: Pantoprazole IV* 40 MG IV SCH (10:22)
[2018-04-07] MEDS: Finasteride TAB* 5 MG PO SCH (10:24)
[2018-04-07] MEDS: Metoprolol Tartrate TAB* 25 MG PO SCH (10:24)
[2018-04-07] MEDS: Aspirin EC TAB* 81 MG TAB.EC PO SCH (10:25)
[2018-04-07] MEDS: amLODIPine TAB* 5 MG PO SCH (10:25)
--- NOTE | 2018-04-07 10:37 | PN ---
Progress Note - Progress Note Date of Service: 04/07/18 SOAP: Subjective: Doing well-tolerating full liquids Had 2 small bowel movements yesterday, passing flatus Ambulating in halls Objective: Temp Pulse Resp BP Pulse Ox 98.0 F 60 18 132/57 96 04/07/18 07:20 04/07/18 07:20 04/07/18 07:45 04/07/18 07:20 04/07/18 07:45 Intake & Output 04/05/18 04/06/18 04/07/18 04/08/18 06:59 06:59 06:59 06:59 Intake Total 1890 1843 1950 0 Output Total 1280 3180 600 100 Balance 610 -1337 1350 -100 Intake: IV Fluids 1634 1303 LR 1358 1303 NS (0.9%) 276 Medicated IV 110 GEN - Magnesium 110 IV Narcotic Infusion 26 Morphine 26 Oral 270 636 4543 0 Output: Urine 2380 600 100 Byers 1280 800 Other: # Bowel Movements 1 Estimated Stool Amount Medium PEX: Comfortable Abd is soft and slightly distended. Bowel sounds are present. Dressing intact Laboratory Results - last 24 hr 04/07/18 04/07/18 05:00 05:00 WBC 6.3 RBC 3.57 L Hgb 9.3 L Hct 29 L MCV 80 MCH 26 L MCHC 32 RDW 18 H Plt Count 209 MPV 7.5 Neut % (Auto) 80.7 Lymph % (Auto) 9.2 [place] % (Auto) 7.0 Eos % (Auto) 2.6 Baso % (Auto) 0.5 Absolute Neuts (auto) 5.1 Absolute Lymphs (auto) 0.6 L Absolute Monos (auto) 0.4 Absolute Eos (auto) 0.2 Absolute Basos (auto) 0 Absolute Nucleated RBC 0 Nucleated RBC % 0 Sodium 139 Potassium 3.7 Chloride 109 Carbon Dioxide 28 Anion Gap 2 BUN 13 Creatinine 0.71 Est GFR ( Amer) 129.8 Est GFR (Non-Af Amer) 107.3 BUN/Creatinine Ratio 18.3 Glucose 103 H Calcium 8.3 L Path noted and reviewed with patient and Assessment: POD# 4 s/p exlap, small bowel mass resection--pathology B cell lymphoma Ileus -resolved CAD Plan: Advance diet as tolerated Increase activity Oncology consult-discussed with Dr. Mynor NAVARRETE for d/c later today or tomorrow from surgical standpoint-will d/c wound vac on discharge, office follow later next week for staple removal and routine follow up. All discussed with patient and .
[2018-04-07 13:22] VITALS: BP 122/66
--- NOTE | 2018-04-07 23:03 | DS ---
CC: Dr. Bryan Tierney; Dr. Scott Lowe * DISCHARGE SUMMARY: DATE OF ADMISSION: 03/30/18 DATE OF DISCHARGE: 04/07/18 PRIMARY CARE PROVIDER: Dr. Bryan Tierney. ONCOLOGIST: Dr. Scott Lowe. PRIMARY DIAGNOSES: 1. 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 2. Gastrointestinal bleed, suspect in the setting of diffuse large B-cell lymphoma of the small-bowel. SECONDARY DIAGNOSES: Include: 1. Blood loss anemia, status post 5 units of packed red blood cells. 2. Chest pain in the setting of demand ischemia, in the setting of anemia. 3. Coronary artery disease. 4. History of recent fpl-CY-ppvtvcopp myocardial infarction, February 2018. 5. Hyperlipidemia. 6. Iron deficiency anemia. 7. Hypertension. 8. History of benign prostatic hyperplasia. MEDICATIONS ON DISCHARGE: Include: 1. Tamsulosin 0.4 mg at bedtime. 2. Finasteride 5 mg at bedtime. 3. Nitroglycerin sublingual every 5 minutes as needed for chest pain. 4. Amlodipine 5 mg daily. 5. Pantoprazole 40 mg twice daily. 6. Metoprolol tartrate 12.5 mg twice daily. 7. Ferrous sulfate 325 mg twice daily. 8. Acetaminophen 650 mg every 4 hours as needed for pain or fever. 9. Atorvastatin 80 mg at bedtime. 10. Aspirin 81 mg daily. Please note the discontinuation of Plavix postoperatively and in the setting of recent GI bleed. Attention should be made to restarting medication if appropriate. PERTINENT LABORATORY DATA: Hemoglobin on presentation 7.3, peaked at 11.0 after 5 units of packed red blood cells, stable at 9.3 on the day of discharge for 3 days or for 72 hours prior to discharge. Troponin I 0.01 for 3 consecutive checks. PERTINENT IMAGING: CT abdomen and pelvis, findings consistent with small-bowel neoplasm with irregular wall thickening and exophytic mass near the junction of the jejunum and ileum with adjacent mesenteric adenopathy, mildly dilated proximal small-bowel concerning for early partial obstruction, enlarged prostate gland, and mild wall thickening of the urinary bladder which may represent artifact. PROCEDURES PERFORMED DURING THE HOSPITAL STAY: 1. Resection of segment of small-bowel including previously identified mass by Dr. Sky on 04/03/18. 2. Pathology is diffuse large B-cell lymphoma. HISTORY OF PRESENT ILLNESS AND HOSPITAL COURSE: This is a 77-year-old man, past medical history as outlined in the history of present illness on the day of admission including recent NSTEMI in February 2018 and after which he was started on aspirin as well as Plavix, who presented to the hospital with chest pain, found with new-onset anemia, presenting value with hemoglobin of 7.3. He was admitted to the hospital and received a total of 5 units packed red blood cells. Concern was for an upper GI bleed, underwent upper endoscopy without identification of active source of bleeding, after which patient underwent a CT abdomen/pelvis, which was notable for exophytic mass at the junction of the jejunum and ileum, as indicated in the impression above. The patient had no further chest pain; however, with a newly identified mass did undergo resection of small portion of his small-bowel and the identified mass with Dr. Tom Sky. Final pathology was consistent with diffuse large B-cell lymphoma. The patient was seen in consultation with Dr. Lowe prior to his discharge. The patient's diet was advanced after surgery. He is tolerating full liquid as well as some soft food prior to the day of discharge. Advancing his diet was discussed in detail with the patient and his prior to discharge. The patient is to follow up with Dr. Lowe the week after discharge as well as Dr. Sky on the Monday after discharge, which is approximately 6 days. This information was relayed from the speciality services as well as this author to the patient and his . Consideration for an outpatient stress test could be made; however, not thought to be emergent at this time, especially understanding that any potential intervention will be complicated by future chemotherapy and potentially thrombocytopenia or increased risk of bleeding. The patient was restarted on his aspirin prior to discharge without any additional bleeding; however, his Plavix was still held. He has a history of BPH, had a Byers catheter placed and then removed prior to his discharge. At followup, please; 1. Consider restarting Plavix as necessary. 2. Note multiple labs tests are pending at the time of discharge including EBB in situ and FISH for B-cell lymphoma. 3. Follow blood pressures; I am sure you will adjust medications accordingly. 4. No other specific labs or vitals need followup. Reasons to return to the hospital including, but not limited to recurrent or worsening symptoms, chest pain, shortness of breath, nausea, vomiting, lightheadedness, loss of consciousness, bleeding from any source, inability to obtain or tolerate medications were discussed with the patient and his . TIME SPENT: Greater than 60 minutes were spent on the discharge of this patient , greater than half was spent [id number] with the patient. [id number]/[facility] #: [id number] MTDD
[2018-04-10 17:13] LABS: BLYMF Result Summary Negative; BLYMF Source Small bowel
--- NOTE | 2018-04-11 02:26 | CONS ---
CC: Dr. Bryan Tierney; Dr. Axel Boucher of Cardiology; Scott Lowe MD. MEDICAL ONCOLOGY/HEMATOLOGY CONSULTATION NOTE: DATE OF ADMISSION: 03/30/18 DATE OF CONSULTATION: 04/07/18 REASON FOR CONSULTATION: Small bowel lymphoma. PRIMARY CARE PHYSICIAN: Dr. Bryan Tierney. HISTORY OF PRESENT ILLNESS: Mr. Robles is a 77-year-old male who over the course of the fall noticed t hat his energy level had been good at approximately Thanksgiving time, but had lost approximately 10 pounds by that point. He had noticed a decreased appetite, but not any nausea or vomiting or any jerrell nges in his stools. The abdominal pain has been somewhat persistent since January. Following the rst of February, he has lost another 10 to 15 pounds with the incidents as noted below. He reports t he abdominal pain has been bilateral and periumbilical. He developed some chest pain on 02/10/18, substernal and radiating to the left arm. He presented to [facility] emergency room, but left against their medical advise during the day when the emergency room was b usy after normal EKG. Two days later, he saw his primary care physician. EKG had some changes. He took aspirin and presented back to the emergency room where he was found to have a mildly elevated t roponin at 0.06. He was found to have anemia with a hemoglobin of 11. His hemoglobin had been 16 on previous check in July of 2016 and this drop was attributed to be most likely from the ibuprofen he h ad been taking at 600 to 800 mg daily for many years. The ibuprofen was stopped, stool guaiacs were n egative. It was felt reasonable to place on proton pump inhibitor and maintain off of NSAIDs. Given the abnormal stress test with concern for ischemic coronary artery disease, the patient underwent ca rdiac catheterization on 02/16/[address] Raya. This revealed significant coronary artery disease involving small caliber first obtuse marginal superior branch as well as totally occluded mid dresser tender ior descending artery. 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 No stents were placed and recommendations were for aggressive medical management. He was able to be discharged to home on aspirin and Plavix and increased atorvastatin. He started undergoing cardiac rehab. Subsequent to t [facility], he returned to the hospital with a urinary blockage and a catheter to be placed, a Byers was in for 3 weeks. On , he was admitted back to the emergency room with bleeding in the urina ry tract and the catheter being blocked. The catheter was finally able to be removed on 03/12/18. Over the course of March, the patient developed increasing abdominal pain. This pain worsened some overnight just prior to admission and he presented back to the emergency room and then was admitted. He had stopped taking pantoprazole about 1 week prior to this admission. He was found to have a si gnificant worsening of his anemia with a hemoglobin of 7.3, microcytic, iron-deficient, and with guai ac positive stools. He received a total of 5 units of packed red blood cells during the hospitalizat ion. There was concern for an upper GI bleed. He underwent an upper GI endoscopy without an obvious bleeding source and then underwent a CT scan of the abdomen and pelvis which revealed an exophytic m ass at the junction of the jejunum and ileum. There was adjacent mesenteric adenopathy along with a mildly dilated proximal small bowel concerning for early partial obstruction. Because of the abdomin al pain and the identified mass described above, the patient was taken to the operating room by Dr. Yane Sky of Surgery. On 04/03/18, he underwent exploratory laparotomy and resection of small mian wel mass with 2 small bowel anastomoses. A firm indurated mass was noted 3 feet past the Ligament of Treitz, felt to be almost certainly malignant. There were 3 separate loops of small bowel that invo lved the mass. Several large lymph nodes were also noted in the area and removed en bloc with the re mainder of the tumor. Pathology revealed diffuse large B-cell lymphoma, germinal center type. All margins were clear. Thi s was CD20 positive by recording commentary, although listed as CD20 negative in the microscopic desc ription. We will need to sort out this discrepancy. He was also found to be PAX5 positive, BCL6 pos itive, BCL2 positive, MUM1 positive, and CD10 negative. It was intact for microsatellite instability . BRAF was negative. EBV and c-Myc are pending at the time of the consultation. The patient recovered well from his surgery. He was able to tolerate a full liquid diet as well as s ome soft foods. By the time of discharge, he had no further chest or abdominal pain. Byers which david d been placed earlier in the hospitalization was able to be removed prior to discharge. PAST MEDICAL HISTORY: Otherwise significant for: 1. Back surgery in [address] Jacques at [facility]. 2. History of thoracic aortic aneurysm noted at the time of cardiac cath. 3. Hyperlipidemia. 4. Hypertension. 5. BPH with UTI. 6. Recent NSTEMI as discussed above. 7. Coronary artery disease. MEDICATIONS: At the time of admission had included: 1. Lipitor 80 mg daily. 2. Aspirin 81 mg daily. 3. Tamsulosin 0.4 mg daily. 4. Finasteride 5 mg daily. 5. Pantoprazole 40 mg b.i.d., but not taking recently. 6. Metoprolol 12.5 mg b.i.d. 7. Ferrous sulfate 325 mg b.i.d. 8. Plavix 75 mg daily. 9. Nitroglycerin p.r.n. ALLERGIES: None. FAMILY HISTORY: The patient's father of an DE at 57. The patient's mother with colon cancer at 95. Half brother on the maternal side with colon cancer dying at 63. Half-sister's daughter, his n los, dying of non-Hodgkin's lymphoma at 39. No other family history of malignancies. No other famil y history of coronary artery disease at early ages. 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 Lives with his Chana who is a retired nurse and the previous hea d of the [employer] at our hospital. No alcohol. No cigarettes. REVIEW OF SYSTEMS: Decreased energy recently, approximately 25 pound weight loss over the past sever al months. Decreased appetite. Change in bowel habits as discussed above. Chest pain previously, b ut none recently. Denies any arthritic or bony complaints. Denies any neurologic issues. Denies an y recent infectious other than urinary tract infection. Urinary symptoms as discussed above. PHYSICAL EXAM: A 77-year-old male in no acute distress. Vital Signs: Stable, afebrile. HEENT: PE RRLA, EOMI. No erythema or exudates. No palpable cervical, supraclavicular, or axillary adenopathy. Heart: Regular rate and rhythm without murmurs, rubs, or gallops. Lungs: Clear. Abdomen: Posto perative with good bowel sounds. Extremities: No edema. Neurologic Exam: Without focal deficits. DIAGNOSTIC STUDIES/LAB DATA: Laboratory studies this admission have included on admission H and H of 23/7.3. He is status post 5 units of packed red blood cells. INR of 1.16. Electrolytes without sig nificant abnormalities. Troponins have been low. CT scan as discussed above. Preoperatively, had shown findings consistent with a small bowel neoplas m with a regular wall thickening and a cystic mass in the junction of the jejunum and ileum with jerry cent mesenteric adenopathy. There was mildly dilated proximal small bowel concerning for earlier par tial obstruction. In addition, enlarged prostate, ileum and mild thickening of the urinary bladder l ikely from a recent distention and cystitis which he is known to have. The abdominal mass measured a pproximately 5.5 cm in greatest dimension AP. CT scan of the chest has not been performed to this ti me. IMPRESSION: Small bowel lymphoma, diffuse large B-cell, germinal center type. He will need to compl ete his staging workup which will need to also include PET scan and a bone marrow aspirate and biopsy . Hepatitis studies will need to be obtained including both hepatitis B and C. He has had recent ec hocardiograms and normal ejection fraction so this does not need to be repeated. LDH is modestly alec vated. Uric acid has not yet been obtained. On IPI score, he has an elevated LDH, age is greater than 60, performance status is 1. Stage so far was a stage 2 and there is only one extranodal site. This would give him a score of 2 which will put him in a low intermediate range. In addition, while the MYC is still pending, this is a germinal center lymphoma which tends to have a better prognosis than the ABC type. Once the st aging workup has been completed, final recommendations will follow as to chemotherapy, but most likel y will be treated with R-CHOP or potentially with either etoposide or Doxil replacing the Adriamycin if this is felt to be prudent by Cardiology. The above was discussed at length with the patient and his who understand and wish to continue the staging workup. Most likely, further therapy will s tart somewhere in the order of about 3 weeks postoperatively. [id number]/[facility] #: [id number]
== END 2018-04-07 14:18 | disposition home or self-care (01) | DRG 680 ==
LOC: ED 09:45 → MEDTELE 12:03 → ICU 04-03 12:44 → SSU 04-04 15:28
PROVIDERS: ADMIT Hospitalist; ATTEND Internal Medicine
PROC: 30233N1 Transfusion of Nonautologous Red Blood Cells into Peripheral Vein, Percutaneous Approach (ICD-10-PCS; principal; 2018-03-30)
PROC: 0DB98ZX Excision of Duodenum, Via Natural or Artificial Opening Endoscopic, Diagnostic (ICD-10-PCS; 2018-03-30)
PROC: 0DB68ZX Excision of Stomach, Via Natural or Artificial Opening Endoscopic, Diagnostic (ICD-10-PCS; 2018-03-30)
PROC: 0DB48ZX Excision of Esophagogastric Junction, Via Natural or Artificial Opening Endoscopic, Diagnostic (ICD-10-PCS; 2018-03-30)
PROC: 0DJD8ZZ Inspection of Lower Intestinal Tract, Via Natural or Artificial Opening Endoscopic (ICD-10-PCS; 2018-03-31)
PROC: 0DBV0ZZ Excision of Mesentery, Open Approach (ICD-10-PCS; 2018-04-03)
PROC: 0DB80ZZ Excision of Small Intestine, Open Approach (ICD-10-PCS; 2018-04-03)
DX: C83.33 Diffuse large B-cell lymphoma, intra-abdominal lymph nodes (principal); D62 Acute posthemorrhagic anemia; I24.8 Other forms of acute ischemic heart disease; K92.1 Melena; K56.0 Paralytic ileus; I25.10 Atherosclerotic heart disease of native coronary artery without angina pectoris; D50.9 Iron deficiency anemia, unspecified; I10 Essential (primary) hypertension; E78.5 Hyperlipidemia, unspecified; N40.0 Benign prostatic hyperplasia without lower urinary tract symptoms; E66.9 Obesity, unspecified; Z68.28 Body mass index [BMI] 28.0-28.9, adult; E87.6 Hypokalemia; I71.2 Thoracic aortic aneurysm, without rupture; K57.30 Diverticulosis of large intestine without perforation or abscess without bleeding; I25.2 Old myocardial infarction; Z82.49 Family history of ischemic heart disease and other diseases of the circulatory system; Z98.42 Cataract extraction status, left eye; Z98.41 Cataract extraction status, right eye; Z98.1 Arthrodesis status; Z87.440 Personal history of urinary (tract) infections; Z80.0 Family history of malignant neoplasm of digestive organs; Z79.82 Long term (current) use of aspirin
CPT/HCPCS: 36415; 71045; 74177; 80048; 80053; 80076; 81003; 81015; 82272; 82565; 82607; 82728; 83010; 83540; 83550; 83605; 83615; 83735; 83880; 84100; 84484; 84520; 85014; 85018; 85025; 85027; 85045; 85610; 85730; 86140; 86850; 86900; 86901; 86922; 87086; 87641; 88271; 88291; 88305; 88307; 88309; 88341; 88342; 88360; 88365; 93005; 93306; 99156; 99157; 99285; A9270-GY; A9272; C1776; J1100; J1170; J1644; J2250; J2270; J2405; J2543; J2704; J2710; J3010; J3475; J3480; J3490; P9016; P9040; Q9967

== ENCOUNTER 2018-04-23 05:49 | Day surgery (SDC) | payer OTHER, MEDICARE ==
[~2018-04-23 05:49] MED LIST: Buffered Lidocaine 1% SYRIN* 1 ML/SYRINGE INTRADERM ONE
[2018-04-23] MEDS ORDERED: Naloxone* 0.4 MG/ML 1 ML VIAL IV PRN (05:55)
[2018-04-23] MEDS ORDERED: PROCHLORPERAZINE INJ 5 MG/ML 2 ML VIAL IV PRN (05:55)
[2018-04-23] MEDS ORDERED: fentaNYL* 50 MCG/ML 2 ML VIAL (100 MCG VIAL) IV PRN (05:55)
[2018-04-23] MEDS ORDERED: oxyCODONE/Acetamin 5/325 MG* TAB PO PRN (05:55)
[2018-04-23] MEDS ORDERED: Lactated Ringers 1000 ML Bag* 1,000 ML IV SCH (06:00)
[2018-04-23] MEDS ORDERED: Famotidine IV* 10 MG/ML 2 ML (20 mg) IV ONE (06:00)
[2018-04-23] MEDS ORDERED: Ondansetron INJ* 2 MG/ML VIAL IV ONE (06:00)
[2018-04-23] MEDS ORDERED: Dexamethasone TAB* 4 MG PO ONE (06:00)
[2018-04-23] MEDS ORDERED: Ondansetron ODT TAB* 4 MG ONE (06:03)
[2018-04-23] MEDS ORDERED: ceFAZolin 2 GM PREMIX in ORs 2 GM/50 ML BAG IVPB ONE (06:03)
[2018-04-23] MEDS ORDERED: Famotidine IV* 10 MG/ML 2 ML (20 mg) ONE (06:03)
[2018-04-23] MEDS ORDERED: Dexamethasone TAB* 4 MG ONE (06:03)
[2018-04-23] MEDS ORDERED: Metoprolol Tartrate TAB* 25 MG ONE (06:37)
[2018-04-23] MEDS ORDERED: Lidocaine 1% INJ* 10 MG/ML 30 ML SDV ONE (07:09)
[2018-04-23] MEDS ORDERED: Midazolam* 1 MG/ML 2 ML VIAL (2 MG) ONE (07:25)
[2018-04-23] MEDS ORDERED: fentaNYL* 50 MCG/ML 2 ML VIAL (100 MCG VIAL) ONE (07:25)
[2018-04-23] MEDS ORDERED: Propofol* 10 MG/ML 20 ML BTL ONE (08:14)
--- NOTE | 2018-04-23 08:52 | BRIEFOPN ---
Brief Operative Note - Surgery Procedures: Procedures OPERATIVE REPORT PRE-OP: Lymphoma POST-OP: Same PROCEDURE: Insertion of 8F left chest wall PowerPort SURGEON: MD Jose Daniel ANESTHESIA:Local with MAC [place] ASST:none IVF:min EBL:min SPECIMEN:None DRAIN: none WOUND CLASS: One COMPLICATIONS: none TO PACU
[2018-04-23 09:37] VITALS: BP 133/76
--- NOTE | 2018-04-23 21:08 | OP ---
DATE OF OPERATION: 04/23/18 [facility] DATE OF : 38 SURGEON: Tom Sky MD. BULLDOZER PRESS OPERATOR: None. ANESTHESIOLOGIST: Dr. Cannon. ANESTHESIA: Local with monitored anesthesia care with Dr. Cannon. PRE-OP DIAGNOSIS: Lymphoma. POST-OP DIAGNOSIS: Lymphoma. OPERATIVE PROCEDURE: Insertion of a left chest wall 8-Hebrew PowerPort, percutaneously placed. ESTIMATED BLOOD LOSS: Minimal. WOUND CLASSIFICATION: I. COMPLICATIONS: None. DRAINS: None. SPECIMENS: None. DESCRIPTION OF PROCEDURE: Written informed consent was obtained. The left chest was marked with indelible ink and preoperative antibiotics were administered. The patient was taken to the operating room and placed in the supine position. Sequential compression devices and warming blanket were applied. The left and right chest and neck were prepped and draped in the usual sterile fashion. Time-out verification was completed. The patient was placed in Trendelenburg position. 1% lidocaine with epinephrine was infiltrated in the left mid clavicular area and using an 18- gauge Cook needle, the first pass under the clavicle, the subclavian vein was punctured with good blood return. Initially, the standard length guidewire with the PowerPort kit was passed and I had difficulty passing the guidewire down into the superior vena cava using a fluoroscopy despite multiple attempts. The guidewire and needle were then removed. A second stick was then performed without difficulty with good blood return and a 0.035 cm diameter glidewire was then passed in usual fashion and after several attempts, I was able to pass the glidewire down into the superior vena cava through the heart down into the inferior vena cava. A small transverse incision was made on the chest wall just below the initial puncture site. It is large enough to fit the port inferiorly. A catheter was then tunnelled from the puncture site to the pocket. Using the sheath peel-away dilator system, the catheter was inserted and under direct vision with fluoroscopy, was positioned just inside the atrium at the junction of the superior vena cava. The catheter was then cut to the appropriate length and attached to the port, which was placed through the pocket. The port was sutured to the subcutaneous tissue at 2 spots with 2 separate 2-0 Polysorb sutures. The catheter flushed blood well and withdrew without difficulty. It was flushed with heparin solution. Hemostasis was assured. The incisions were closed with 3-0 and 4-0 Vicryl suture. Steri-Strips and occlusive Tegaderm dressing were applied. The patient tolerated the procedure well, was taken to the recovery room in stable condition. Postprocedural chest x-ray showed the catheter to be in good position without evidence of pneumothorax. [id number]/[facility] #: [id number] MTDD
== END 2018-04-23 09:49 | disposition home or self-care (01) ==
LOC: OR 05:49
PROVIDERS: ATTEND Surgery
DX: C83.33 Diffuse large B-cell lymphoma, intra-abdominal lymph nodes (principal); I25.10 Atherosclerotic heart disease of native coronary artery without angina pectoris; I25.2 Old myocardial infarction; E78.5 Hyperlipidemia, unspecified; I71.4 Abdominal aortic aneurysm, without rupture
CPT/HCPCS: 71045; 76000; A9270-GY; C1769; C1788; J0690; J2250; J2704; J3010; J8540

== ENCOUNTER 2018-08-23 06:20 | Observation (INO) | payer MEDICARE ==
--- OUTSIDE RECORDS SUMMARY | 2018-08-23 06:24 | XMS REPORT | Continuity of Care Document ---
:1940 External Reference #:[id number] Author Name El Rodriguez M.D. Address 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 Onset: 01/23/2017 Family History Date Family Member(s) Observation Comments General Diabetes General Sister Father Heart Disease Mother Cataract Social History Type Date Description Comments Sex Unknown ETOH Use Denies alcohol use Tobacco Use Start: Unknown Patient has never smoked Smoking Status Reviewed: 07/30/18 Patient has never smoked Allergies, Adverse Reactions, Alerts Description No Known Drug Allergies Medications Active Medications SIG Qnty Indications Ordering Provider Date Lipitor 1 by mouth every Unknown 10mg Tablets night at bedtime Flomax Unknown 0.4mg Capsules Finasteride Unknown 5mg Tablets Metoprolol Tartrate take 1/2 tablet Unknown 25mg by mouth twice a Tablets day History Medications Neomycin/Polymyxin/Dexamethasone apply left 1tube C44.1091 El 2018 - 3.5-08410-5.1 upper lid Jennifer, 07/30/2018 Ointment bid M.DRemington Doxycycline Monohydrate two 2caps L03.213 El 01/23/2017 - 100mg Capsules capsules PO Jennifer, 06/25/2018 x 1 M.D. Vital Signs Date Vital Result Comment 06/25/2018 2:41pm Intraocular Pressure Right Eye 11 mmHg Intraocular Pressure Left Eye 11 mmHg Procedures Date Code Description Status 07/30/2018 32506 Eye Exam Est Intermediate Completed 06/25/2018 08623 External Photography W/Interpretation & Report Completed 01/23/2017 63540 Eye Exam New Intermediate Completed 06/16/2011 72012 Ophthalmic Biometry By Partial Coherence Interferometry Completed W/Intra 06/16/2011 10184 Eye Exam New Comprehensive Completed Encounters Type Date Location Provider Dx Diagnosis Office Visit 06/25/2018 Main Office El Rodriguez, C44.1091 Unsp malignant 2:00p DannaDRemington neoplasm skin/ left upper eyelid, inc [place] Plan of Treatment 07/30/2018 - El Rodriguez M.D.C44.1091 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
--- OUTSIDE RECORDS SUMMARY | 2018-08-23 06:24 | XMS REPORT | Continuity of Care Document ---
:1940 External Reference #:[id number] Author Name El Rodriguez M.D. Address [address] [place] [address] Care Team Providers Name Role Phone Bryan Tierney MD Care Team Information Locker Operator Unavailable Bryan Tierney MD Primary Care Physician Unavailable Payers Date Identification Numbers Payment Provider Subscriber Policy Number: [id number] [employer] Reggie Robles PayID: [id number] [address] [place] [address] Problems Active Problems Provider Date Cellulitis of periorbital region El Rodriguez M.D. Onset: 01/23/2017 Family History Date Family Member(s) Observation Comments General Diabetes General Sister Father Heart Disease Mother Cataract Social History Type Date Description Comments Sex Unknown ETOH Use Denies alcohol use Tobacco Use Start: Unknown Patient has never smoked Smoking Status Reviewed: 08/22/18 Patient has never smoked Allergies, Adverse Reactions, [...] apply left 1tube C44.1091 El 2018 - 3.5-50394-5.1 upper lid Jennifer, 07/30/2018 Ointment bid M.DR[place]ington Doxycycline Monohydrate two 2caps L03.213 El 01/23/2017 - 100mg Capsules capsules PO Jennifer, 06/25/2018 x 1 M.D. Vital Signs Date Vital Result Comment 06/25/2018 2:41pm Intraocular Pressure Right Eye 11 mmHg Intraocular Pressure Left Eye 11 mmHg Procedures Date Code Description Status 08/22/2018 48748 Eye Exam Est Intermediate Completed 07/30/2018 73478 Eye Exam Est Intermediate Completed 06/25/2018 31712 External Photography W/Interpretation & Report Completed 01/23/2017 10866 Eye Exam New Intermediate Completed 06/16/2011 62707 Ophthalmic Biometry By Partial Coherence Interferometry Completed W/Intra 06/16/2011 37735 Eye Exam New Comprehensive Completed Encounters Type Date Location Provider Dx Diagnosis Office Visit 06/25/2018 Main Office El Rodriguez, C44.1091 Unsp malignant 2:00p [place] neoplasm skin/ left upper eyelid, inc [place] Plan of Treatment 08/22/2018 - El Rodriguez M.D.C44.1091 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
[2018-08-23] MEDS ORDERED: Aspirin 81 mg CHEW TAB* 81 MG TAB.CHEW PO ONE (06:26)
[2018-08-23] MEDS ORDERED: NS 0.9% 1000 ML** 1,000 ML IV ONE (06:26)
--- NOTE | 2018-08-23 06:40 | ED ---
HPI Chest Pain - HPI Summary HPI Summary: Pt. is a 77 y.o male who presents to the ER for chest pain that started around 0330 today. Pt. states it woke him out of bed. Pt. states pain was substernal and sharp in nature. Associated symptoms or nausea and SOB. Pt. is currently being treated for non hodgkin's lymphoma and follows with Dr. Lowe for oncology. notes that he finished his 6th round of chemo about a week ago. states that he was very tired after chemo which is normal but started feeling better yesterday. Past hx of CAD, PUD, HDL, anemia. Pt. took nitro at home and received nitro and ASA in ambulance. Pt. states his pain has greatly improved since. Pt. otherwise denies, fever, cough, sob, abd. pain, V/D, urinary sxs. Symptoms are moderate in severity. No current modifying factors. Pt. notes he had a heart catherization last year and was told he had some blockages but that his vessels were too small for stents. - History of Current Complaint Chief Complaint: EDChestPainROMI Time Seen by Provider: 08/23/18 06:27 Hx Obtained From: Patient Pain Intensity: 2 - Additional Pertinent History Primary Care Physician: [id number] - Allergy/Home Medications Allergies/Adverse Reactions: Allergies Allergy/AdvReac Type Severity Reaction Status Date / Time No Known Allergies Allergy Verified 08/23/18 06:37 PMH/Surg Hx/FS Hx/Imm Hx Previously Healthy: Yes Endocrine/Hematology History: Denies: Hx Diabetes Cardiovascular History: Reports: Hx Angina, Hx Hypercholesterolemia, Hx Peripheral Vascular Disease, Other Cardiovascular Problems/Disorders - IA a week ago Denies: Hx Coronary Artery Disease, Hx Hypertension, Hx Myocardial Infarction , Hx Valvular Heart Disease Respiratory History: Denies: Hx Asthma, Hx Chronic Obstructive Pulmonary Disease (COPD) History: Reports: Other Problems/Disorders - ENLARGED PROSTATE- ON MEDICATION FOR-DR. OTOOLE FOLLOWS Denies: Hx Renal Disease Sensory History: Reports: Hx Cataracts, Hx Contacts or Glasses Denies: Hx Hearing Aid Opthamlomology History: Reports: Hx Cataracts, Hx Contacts or Glasses Neurological History: Denies: Other Neuro Impairments/Disorders - Surgical History Surgery Procedure, Year, and Place: LUMBAR FUSION 1999 [facility] [place]. BILAT CATARACT 2010 [facility] [place] Hx Anesthesia Reactions: No Infectious Disease History: No Infectious Disease History: Denies: Traveled Outside the [place] in Last 30 Days - Family History Known Family History: Positive: Cardiac Disease - IA (father at 57 y/o), Other - IA (father at 57 y/o) - Social History Occupation: Retired Lives: With Family Alcohol Use: None Substance Use Type: Reports: None Smoking Status (MU): Never Smoked Tobacco Have You Smoked in the Last Year: No Review of Systems Constitutional: Negative Negative: Fever, Chills Eyes: Negative ENT: Negative Positive: Chest Pain. Negative: Palpitations Respiratory: Negative Negative: Shortness Of Breath, Cough Positive: Nausea. Negative: Abdominal Pain, Vomiting, Diarrhea Genitourinary: Negative Musculoskeletal: Negative Neurological: Negative All Other Systems Reviewed And Are Negative: Yes Physical Exam Triage Information Reviewed: Yes Vital Signs On Initial Exam: Initial Vitals Temp Pulse Resp BP Pulse Ox 98.1 F 58 16 141/73 98 08/23/18 06:27 08/23/18 06:27 08/23/18 06:27 08/23/18 06:27 08/23/18 06:27 Vital Signs Reviewed: Yes Appearance: Positive: Well-Appearing - Pt. sitting up in bed in NAD. present. Awake, alert and well appearing. Skin: Positive: Warm, Dry Head/Face: Positive: Normal Head/Face Inspection Eyes: Positive: Normal, EOMI, [place] Neck: Positive: Supple Respiratory/Lung Sounds: Positive: Clear to Auscultation, Breath Sounds Present. Negative: Rales, Rhonchi, Wheezes Cardiovascular: Positive: Normal, RRR Musculoskeletal: Positive: Normal, Strength/ROM Intact. Negative: Edema Left, Edema Right Neurological: Positive: Normal, CN Intact II-III Psychiatric: Positive: Affect/Mood Appropriate Diagnostics - Vital Signs Vital Signs Temp Pulse Resp BP Pulse Ox 08/23/18 06:27 98.1 F 57 16 141/73 99 - Laboratory Result Diagrams: 08/23/18 06:39 08/23/18 06:39 Lab Statement: Any lab studies that have been ordered have been reviewed, and results considered in the medical decision making process. Chest Pain Course/Dx - Course Course Of Treatment: Pt. presenting for evaluation of CP starting around 0330. Pain is minimal in the ER after 3 doses of nitro and ASA. Afebrile with stable VS. ECG done at 0621 shows a sinus bradycardia of 53bpm, normal axis, no ST elevation or depression, unchanged to prior tracing. CBC shows a pancytopenia of a WBC of 1.1, H and H 10.6 and 33, platelets 88, absolute neutrophils 0.3, mag 1.7, Negative troponin x 1. CXR negative for acute findings per my reading. 0745: Case discussed with Dr. Reinoso, hospitalist, and she will see pt. for admission. Oncology, Dr. Mcgregor, also made aware of pt. Pt. admitted for chest pain r/o. - Chest Pain Differential Diagnosis/HQI/PQRI: Acute IA, ACS, Angina, Aortic Aneurysm, CHF, Chest Wall - Diagnoses Provider Diagnoses: Chest pain, Pancytopenia Discharge - Sign-Out/Discharge Documenting (check all that apply): Patient Departure Patient Received Moderate/Deep Sedation with Procedure: No - Discharge Plan Condition: Stable Disposition: ADMITTED TO [facility] - Billing Disposition and Condition Condition: STABLE Disposition: Admitted to [facility]
[2018-08-23 06:59] LABS: Hematocrit 33 % (42-52); Hemoglobin 10.6 g/dL (14.0-18.0); Mean Corpuscular HGB Conc 33 g/dL (31-36); Mean Corpuscular Hemoglobin 28 pg (27-31); Mean Corpuscular Volume 85 fL (80-94); Mean Platelet Volume 8.1 fL (7.4-10.4); Platelet Count 88 10^3/uL (150-450); Red Blood Count 3.82 10^6 /uL (4.18-5.48); Red Cell Distribution Width 20 % (10-15); White Blood Count 1.1 10^3/uL (3.5-10.8)
[2018-08-23 07:05] LABS: ABS Eosinophils 0.1 10^3/ul (0-0.6); ABS Lymphocytes 0.2 10^3/ul (1.0-4.8); ABS Monocytes 0.5 10^3/ul (0-0.8); ABS Neutrophils 0.3 10^3/ul (1.5-7.7); Eosinophil % 8.8 %; Lymphocyte % 17.9 %; Nucleated Red Blood Cells % 0.3
[2018-08-23 07:15] LABS: Albumin 3.6 g/dL (3.2-5.2); Albumin/Globulin Ratio 1.5 (1-3); BUN/Creatinine Ratio 21.4 (8-20); EGFR Non-African American 109.1 (>60); Globulin 2.4 g/dL (2-4); Magnesium 1.7 mg/dL (1.9-2.7); Potassium 3.5 mmol/L (3.5-5.0); Total Bilirubin 0.7 mg/dL (0.2-1.0)
[2018-08-23 07:30] LABS: Activated Partial Thrombo Time 33.5 seconds (26.0-38.0); INR 1.27 (0.82-1.09)
[2018-08-23] MEDS ORDERED: Nitroglycerin TAB 0.4 MG* 0.4 MG TAB SL PRN (08:28)
[2018-08-23] MEDS ORDERED: Magnesium Sulfate 2 GM IV* 2 GM/50 ML BAG IVPB ONE (08:33)
[2018-08-23] MEDS ORDERED: Iohexol 350* (CONTRAST) 500 ML MDV IV ONE (08:38)
[2018-08-23] MEDS ORDERED: Aspirin EC TAB* 81 MG TAB.EC PO SCH (09:00)
[2018-08-23 09:54] LABS: C Reactive Protein 4.66 mg/L (<8.01)
--- NOTE | 2018-08-23 10:03 | PN ---
Progress Note - Progress Note Date of Service: 08/23/18 SOAP: Subjective: []Diagnosed with DLBCL in March of this year. Status post cycle 6 R-CEOP with pegfilgrastin last week, D9 today. "This cycle really knocked me down for a couple days." States sternal chest pain started this AM approx. 0330. Denied SOB but took his breath away, "it was a deep pain." Denies any radiation. Woke up when didn't go away and took nitro approx. [id number] with some improvement initially then returned at which time they activated EMS. States pain at this time approx. 1-2/10 at the sternum. C/o a slight EASTMAN, denies dizziness and vision changes. Denies upset stomach. Denies burning in abd. or sternum (reflux type pain). Home Medications Medication Instructions Recorded Confirmed Type Acetaminophen TAB* [Tylenol TAB*] 650 mg PO Q4H PRN #30 tab 02/21/18 08/23/18 Rx Aspirin EC TAB* [Ecotrin EC Low 81 mg PO QAM 03/30/18 08/23/18 History Dose 81 MG*] Atorvastatin* [Lipitor 80 MG*] 80 mg PO BEDTIME 03/30/18 08/23/18 History Ferrous Sulfate TAB* 325 mg PO BID 03/30/18 08/23/18 History Finasteride TAB* [Proscar TAB*] 5 mg PO BEDTIME 03/30/18 08/23/18 History Nitroglycerin TAB 0.4 MG* 0.4 mg SL Q5M PRN 03/30/18 08/23/18 History Tamsulosin CAP* [Flomax CAP*] 0.4 mg PO BEDTIME 03/30/18 08/23/18 History Cholecalciferol (Vitamin D3) 4,000 unit PO QAM 04/18/18 08/23/18 History [Vitamin D3] Metoprolol Tartrate TAB* 12.5 mg PO BID 04/18/18 08/23/18 History [Lopressor TAB*] Objective: [] Vital Signs Temp Pulse Resp BP Pulse Ox 98.1 F 69 20 136/71 95 08/23/18 08:42 08/23/18 08:42 08/23/18 09:00 08/23/18 08:42 08/23/18 08:42 A&Ox3, EOMI, neuro grossly non-focal HRR, S1S2, tele SR LS clear bilat. with even and non-labored respirations +BS, abd. soft and non-tender No edema LCW port benign Laboratory Results - last 24 hr 08/23/18 08/23/18 08/23/18 06:39 06:39 06:39 WBC 1.1 L RBC 3.82 L Hgb 10.6 L Hct 33 L MCV 85 MCH 28 MCHC 33 RDW 20 H Plt Count 88 L MPV 8.1 Neut % (Auto) 29.6 Lymph % (Auto) 17.9 Sabine % (Auto) 41.9 Eos % (Auto) 8.8 Baso % (Auto) 1.8 Absolute Neuts (auto) 0.3 L* Absolute Lymphs (auto) 0.2 L Absolute Monos (auto) 0.5 Absolute Eos (auto) 0.1 Absolute Basos (auto) 0.0 Absolute Nucleated RBC 0.0 Neutrophils % 28.0 Lymphocytes % 31.0 Monocytes % 28.0 Eosinophils % 10.0 Basophils % 3.0 Nucleated RBC % 0.3 Normal RBC Morphology Normal INR (Anticoag Therapy) 1.27 H APTT 33.5 Sodium 142 Potassium 3.5 Chloride 108 Carbon Dioxide 28 Anion Gap 6 BUN 15 Creatinine 0.70 Est GFR ( Amer) 132.0 Est GFR (Non-Af Amer) 109.1 BUN/Creatinine Ratio 21.4 H Glucose 96 Lactic Acid Calcium 9.0 Magnesium 1.7 L Total Bilirubin 0.70 AST 16 ALT 24 Alkaline Phosphatase 94 Troponin I 0.00 C-Reactive Protein B-Natriuretic Peptide Total Protein 6.0 L Albumin 3.6 Globulin 2.4 Albumin/Globulin Ratio 1.5 08/23/18 08/23/18 08/23/18 06:39 06:39 09:31 WBC RBC Hgb Hct MCV MCH MCHC RDW Plt Count MPV Neut % (Auto) Lymph % (Auto) Sabine % (Auto) Eos % (Auto) Baso % (Auto) Absolute Neuts (auto) Absolute Lymphs (auto) Absolute Monos (auto) Absolute Eos (auto) Absolute Basos (auto) Absolute Nucleated RBC Neutrophils % Lymphocytes % Monocytes % Eosinophils % Basophils % Nucleated RBC % Normal RBC Morphology INR (Anticoag Therapy) APTT Sodium Potassium Chloride Carbon Dioxide Anion Gap BUN Creatinine Est GFR ( Amer) Est GFR (Non-Af Amer) BUN/Creatinine Ratio Glucose Lactic Acid 1.5 Calcium Magnesium Total Bilirubin AST ALT Alkaline Phosphatase Troponin I 0.00 C-Reactive Protein 4.66 B-Natriuretic Peptide 51 Total Protein Albumin Globulin Albumin/Globulin Ratio CTA negative for PE and acute findings Assessment: []77 yo male followed by oncology due to recent diagnosis of DLBCL germinal type now s/p 6 cycles of R-CEOP with CR via PET /p C3. He was treated without Doxorubicin due to significant CAD dx. in 02/2018 managed medically (no stents) . He is currently in his edna and presents to the hospital with concern for acute coronary syndrome, however no elevation in troponin, EKG changes, and no CTA. Plan: []1. ACS: management as per hospitalist and cardiology, appreciate their expertise and management - should he require a stent we would recommend bare metal due to the high recurrence rate in lymphoma (despite curative intent tx. with CR) and potential need for tx. with recurrent low platelets - low likelihood of S/E from chemo 2. Pancytopenia: chemotherapy induced - expect neutrophil recovery in next 5-7 days d/t peg-filgrastin administration 08/18/18 - expect platelets to recover quickly as well as he never required a delay of therapy - suggest maintaining hmg >/=10 in acute cardiac setting - monitor daily labs Oncology to cont. to follow
[2018-08-23] MEDS: Ferrous Sulfate TAB* 325 MG PO SCH ×2 (10:08→21:42)
[2018-08-23] MEDS: Enoxaparin(*) 40 MG/0.4 ML SYR SUBCUT SCH (10:09)
[2018-08-23] MEDS: Cholecalciferol TAB* 1000 UNITS PO SCH (10:29)
[2018-08-23] MEDS: Acetaminophen TAB* 325 MG PO PRN ×2 (11:03→18:32)
--- NOTE | 2018-08-23 11:30 | HP ---
CC: Dr. Tierney; Dr. Boucher; Dr. Lowe * HISTORY AND PHYSICAL: DATE OF ADMISSION: 08/23/18 TIME OF EVALUATION: 8:00 a.m. PRIMARY CARE PROVIDER: Dr. Tierney. CHILD PROTECTIVE SERVICES SOCIAL WORKER: Dr. Boucher. ONCOLOGIST: Dr. Lowe. CHIEF COMPLAINT: Chest pain. HISTORY OF PRESENT ILLNESS: Mr. Robles is a 77-year-old male with a past medical history of coronary artery disease, large B-cell lymphoma, hyperlipidemia, BPH, who presented to the emergency room with complaints of chest pain. He states that he was not his usual state of health yesterday and was actually very busy, preparing to go [facility] for his granddaughter's graduation. He states that he woke up around 4:00 in the morning with sudden onset of retrosternal chest pain, pressure like, 7/10 in intensity. He states that the pain was worse with deep inspiration and lying flat and got better when he leaned forward. He took two nitroglycerin and the third one given by EMS and he states that his pain went down to 1/10. He denies nausea, vomiting, or palpitations. The pain was associated with dyspnea and diaphoresis, but this has now improved. He denies fever, cough, or other complaints. He has had a complex history since February 2018. He presented with chest pain that was described as substernal, radiating to his left arm and his workup included a stress test, that was abnormal and on 02/16/18, he underwent the cardiac cath that showed significant coronary artery disease involving a small caliber first obtuse marginal superior branch as well as a totally occluded mid PDA, which appeared to be getting collaterals from the septal lead sales consultant. The recommendation at that time was for aggressive medical management and if he continued to have symptoms with medical management, the plan was to perform another stress test and if it is still showing significant symptoms of ischemia , consideration could be made towards stenting the proximal portion of the first OM. Dr. Raya was not convinced that the PDA was of a size that would warrant more aggressive approach. His clinical picture continued to be complicated. He was admitted on 02/19/18 with urinary retention and sepsis secondary to urinary tract infection and in March, he presented with an upper GI bleed and further workup led to a diagnosis of a large B-cell lymphoma. At that time, the patient's episodes of chest pain was felt to be secondary to anemia as his hemoglobin was below 8 on the admission. On 04/03/18, he had an exploratory laparotomy for resection of his small bowel mass with 2 small bowel anastomoses. The patient has been receiving treatment (chemotherapy) with Dr. Lowe and his last chemotherapy was on 08/17/18 and he is scheduled to have followup CAT scan next week, but he is under the impression that this was his last chemotherapy. At the time of my interview, the patient states that he is much improved and his chest pain is almost resolved. He states that since February, he has had no issues with chest pain and although, he is being feeling of fatigued with chemotherapy, he has been able to work around the house, walk longer distances, go upstairs, carry groceries, work in the garden with no complaints of chest pain or shortness of breath. PAST MEDICAL HISTORY: 1. Hyperlipidemia. 2. BPH. 3. Coronary artery disease as described above. 4. Large B-cell lymphoma as described above. 5. Status post small bowel terminal resection. MEDICATIONS: 1. Tylenol 650 mg p.o. q.4 hours p.r.n. for fever. 2. Aspirin 81 mg p.o. daily. 3. Atorvastatin 80 mg p.o. at bedtime. 4. Cholecalciferol 4000 units p.o. daily. 5. Ferrous sulfate 325 mg p.o. b.i.d. 6. Finasteride 5 mg p.o. at bedtime. 7. Metoprolol tartrate 12.5 mg p.o. b.i.d. 8. Nitroglycerin 0.4 mg subinguinal q.5 minutes p.r.n. chest pain. 9. Tamsulosin 0.4 mg p.o. at bedtime. ALLERGIES: No known drug allergies. FAMILY HISTORY: Mother passed at age 95 of colon cancer and father at age 57 from an [facility]. SOCIAL HISTORY: There is no history of tobacco, alcohol or drug use. 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 Surrogate decision maker is his , Chana Robles. Phone number is [phone]. REVIEW OF SYSTEMS: A 10-point review of systems was performed and all the pertinent negative and positive findings are in the HPI. PHYSICAL EXAMINATION GENERAL: The patient is a pleasant elderly gentleman sitting up in the bed, in no acute distress. VITAL SIGNS: Temperature 98.1, heart rate is 58, respiratory rate 16, oxygen saturation is 95% on room air, blood pressure is 122/60. HEENT: Pupils are equal. Moist mucous membranes. CHEST: Breath sounds present bilaterally with no added sounds. CVS: Normal S1, S2. Regular rate and rhythm. ABDOMEN: Soft. Bowel sounds are present. EXTREMITIES: No edema, no calf tenderness. NEUROLOGIC: He is alert and oriented x3. Able to move all 4 extremities. DIAGNOSTIC STUDIES/LAB DATA: The patient had a CBC that showed a WBC of 1.1, hemoglobin of 10.6, hematocrit of 33, platelets of 88 with 29% neutrophils and ANC of 0.3. INR is 1.2. Chemistry showed sodium of 142, potassium of 3.5, chloride of 108, bicarb of 28, BUN of 15, creatinine of 0.7, glucose of 96, lactic acid is 1.5, calcium 9, magnesium is 1.7. LFTs are normal. Troponin is 0. BNP 51. Portable chest x-ray was reviewed by this provider and I agree with the radiologist, there is no active cardiopulmonary disease. Only a port on the left anterior chest wall. EKG done on 08/23/18 at 06:21 a.m. shows sinus bradycardia at 53 beats per minute with T inversions in III and these are not new when compared to his prior EKG from March 2018. ASSESSMENT AND PLAN: Mr. Robles is a 77-year-old male with a past medical history of hyperlipidemia, benign prostatic hypertrophy, coronary artery disease , large B-cell lymphoma, who presented to the emergency room with complaints of chest pain. 1. Chest pain. The differential is vast and includes possible esophageal spasm. The patient states that he was very busy yesterday and had pizza. He may have experienced reflux overnight and the chest pain could have been caused by esophageal spams and that would be relieved by nitroglycerin, but he does have a known history of coronary artery disease that was being treated with medical management. The plan is for him to be admitted to the telemetry floor and he will have serial troponins. If ACS is ruled out, I will discuss his case with Cardiology as it is unclear at this time if another stress test would be beneficial knowing that the patient has known coronary artery disease and the plan at that point was for medical management. He appears to be doing well since this is the first episode of chest pain he has had over the past 6 months. Of course, if he does have EKG changes or troponin elevation, a stress test would be helpful to help document ischemia, we will wait for those results. The patient's pain is also pleuritic in nature and he does have sPESI score of 1 and he is at risk for pulmonary embolism due to his history of malignancy. He will have CTA of the chest to rule out PE. He is at risk due to his malignancy. We have to keep in mind that the patient is on the beta- musa, so he would not be able to mount a tachycardic response in the setting of pulmonary embolism. The patient's is concerned with the amount of radiation that the patient is receiving that he has had a PET scan in the past and he is due for a CT chest, abdomen and pelvis next week. I did contact Dr. Mcgregor, who will see the patient in consultation and she is aware that the patient will have a CT chest this week. For next week, he can have just abdomen and pelvis CT to minimize his radiation exposure. I am also concerned about the possibility of pericarditis. The patient states that the pain was worse when lying down and relieved by leaning forward, so he will have an echocardiogram to look for the possibility of pericarditis. We will check an ESR and a CRP. At this time, the patient states his symptoms are controlled and he does not require more pain medications. He will be continued on his aspirin and statin. I am holding his beta-musa for now in case stress test is necessary. 2. Neutropenia. The patient has no complaints of fever, chills, or any signs of infection. He will be on neutropenic precautions at this point. 3. Benign prostatic hypertrophy. Continue finasteride and tamsulosin. 4. DVT prophylaxis. The patient has a score of 5 on the DVT Prophylaxis Assessment Guide and he will be started on Lovenox. 5. Code status is full. TIME SPENT: Approximately 50 minutes was spent with the patient's interview, medical records review, physical examination to complete this admission, more than half of this time was spent [id number] with the patient and coordination of care. All his questions and his 's questions were answered to the best of my knowledge. [id number]/CPS #: [id number] JOSE
--- NOTE | 2018-08-23 16:38 | ECHO ---
*[facility]* [place] [address] Fax #: [phone] Transthoracic Echocardiogram Patient: Travis, Height: 69 in / Reggie Stratton 175.3 cm : 1940 Weight: 196.6 lb / Study Date: 08/23/2018 89.4 kg Age: 77 BP: 145 / 71 Gender: M BMI/BSA: 29.1 kg/m^2 HR: 51 bpm / 2.05 m^2 *Rouge Miller: * Lea Crespo RDCS RN *Referring Physician: * Laura GoffReading Physician: * Milad King MD Indications: Chest Pain, unspecified. History: Coronary artery disease. Non-Hodgkins lymphoma. Chemotherapy. Risk factors: Dyslipidemia. Conclusions Summary: 1. Left ventricle: The cavity size is normal. Wall thickness is moderately increased. Systolic function is normal. The estimated ejection fraction is 55-60%. Wall motion is normal; there are no regional wall motion abnormalities. 2. Normal cardiac chamber sizes. 3. Mild pulmonic regurgitation. 4. Ascending aorta: The ascending aorta is mildly dilated at 3.8 cm. 5. Since the prior echocardiogram completed 03/30/18, there is no significant change. Study data: Transthoracic echocardiogram. Procedure: Transthoracic echocardiography was performed. Image quality was fair. Complete 2D, spectral Doppler, and color flow Doppler. Patient status: Observation. Patient room number: 451. Rhythm: Bradycardia. Findings Left ventricle: The cavity size is normal. Wall thickness is moderately increased. Systolic function is normal. The estimated ejection fraction is 55-60%. Wall motion is normal; there are no regional wall motion abnormalities. There is no consistent Doppler evidence of clinically significant diastolic dysfunction. Right ventricle: The cavity size is normal. Systolic function is normal. Left atrium: The atrium is normal in size. Right atrium: The atrium is normal in size. Mitral valve: The leaflets are mildly thickened. There is no evidence of stenosis. There is trace regurgitation. Aortic valve: The valve is trileaflet. The leaflets are mildly thickened. There is no evidence of stenosis. There is no significant regurgitation. Tricuspid valve: The leaflets are normal thickness. There is trace regurgitation. Pulmonic valve: The valve is structurally normal. There is no evidence of stenosis. There is mild regurgitation. Aorta: Aortic root: The aortic root is not dilated. Ascending aorta: The ascending aorta is mildly dilated at 3.8 cm. Aortic arch: The aortic arch is not dilated. Pericardium: There is no pericardial effusion. Pulmonary arteries: The main pulmonary artery is normal-sized. Systolic pressure can not be accurately estimated. Systemic veins: Inferior vena cava: The vessel is normal in size. The respirophasic diameter changes are in the normal range (>= 50%). Measurements Left ventricle Value Ref Aortic valve Value Ref GHADA, LAX 4.4 cm 4.2 - Rojas diam, ED 2.6 cm ---- 5.8 Peak v, S 1.44 m/sec ---- ESD, LAX 3.2 cm 2.5 - VTI, S 35.6 cm ---- 4.0 Mean grad, S 5.0 mm Hg ---- FS, LAX 28 % 25 - 43 Peak grad, S 8.0 mm Hg ---- PW, ED (H) 1.4 cm 0.6 - LVOT/AV, VTI ratio 0.64 ---- 1.0 IVS/PW, ED 0.99 -------- Mitral valve Value Ref E', lat rojas, TDI (L) 7.5 cm/sec >=10.0 Peak E 0.79 m/sec -- -- E/e', lat rojas, TDI 11 -------- Peak A 0.98 m/sec ---- E', med rojas, TDI 7.6 cm/sec >=7.0 Decel time 327 ms -- -- E/e', med rojas, TDI 10 -------- Peak grad, D 2.5 mm Hg ---- E', avg, TDI 7.6 cm/sec -------- Peak E/A ratio 0.8 ---- E/e', avg, TDI 10 <=14 Pulmonic valve Value Ref LVOT Value Ref Peak v, S 0.83 m/sec ---- Peak chaitanya, S 0.96 m/sec -------- Peak grad, S 3.0 mm Hg ---- VTI, S 22.8 cm -------- Mean grad, S 2 mm Hg -------- Aortic root Value Ref Root diam 3.8 cm <4.2 Ventricular septum Value Ref IVS, ED (H) 1.4 cm 0.6 - Ascending aorta Value Ref 1.0 AAo AP diam, S 3.8 cm ---- Right ventricle Value Ref Aortic arch Value Ref GHADA minor ax, A4C 3.2 cm 1.9 - Arch diam 2.4 cm ---- mid 3.5 Decending aorta Value Ref Left atrium Value Ref Ladonna peak chaitanya 0.91 m/sec ---- ML dim, A4C 4.7 cm -------- SI dim, A4C 5.4 cm -------- Inferior vena cava Value Ref Vol/bsa, ES, 1-p 33 ml/m^2 12 - 37 Diam 1.7 cm ---- A4C Vol/bsa, ES, A/L 27 ml/m^2 16 - 34 Right atrium Value Ref ML dim, ES, A4C 4.3 cm 2.6 - 4.4 SI dim, ES, A4C 5.1 cm 3.4 - 5.3 Estimated RAP 3 mm Hg -------- Legend: (L) and (H) michael values outside specified reference range. Prepared and electronically signed by Milad King MD 08/23/2018 16:37
[2018-08-23] MEDS ORDERED: Al Hydrox/Mg Hydrox/Simet LIQ* 30 ML UDC PO PRN (18:20)
--- NOTE | 2018-08-23 18:24 | PN ---
Hospitalist Progress Note Date of Service: 08/23/18 HOSPITALIST ADDENDUM CTA chest and echo result reviewed. Serial troponins are negative x 3. Had more chest pain after laying down. Suspect it could be GI in nature - will try Mylanta for symptomatic treatment. D/w Cardiology - recommended stress test with Dr Boucher as outpatient. Patient is in agreement. He doesn't think he would be able to have a stress test shortly after completing chemo, but feels he would be up for it next week. Will continue to monitor overnight. Plan for discharge in AM if continues to be stable.
[2018-08-23] MEDS ORDERED: Tamsulosin CAP* 0.4 MG PO SCH (21:00)
[2018-08-23] MEDS ORDERED: Finasteride TAB* 5 MG PO SCH (21:00)
[2018-08-23] MEDS ORDERED: Atorvastatin* 80 MG TAB PO SCH (21:00)
[2018-08-24 06:28] LABS: Hematocrit 33 % (42-52); Hemoglobin 10.9 g/dL (14.0-18.0); Mean Corpuscular HGB Conc 33 g/dL (31-36); Mean Corpuscular Hemoglobin 28 pg (27-31); Mean Corpuscular Volume 85 fL (80-94); Mean Platelet Volume 8.1 fL (7.4-10.4); Platelet Count 86 10^3/uL (150-450); Red Blood Count 3.89 10^6 /uL (4.18-5.48); Red Cell Distribution Width 20 % (10-15); White Blood Count 3.9 10^3/uL (3.5-10.8)
[2018-08-24] MEDS: Enoxaparin(*) 40 MG/0.4 ML SYR SUBCUT SCH (08:11)
[2018-08-24] MEDS: Cholecalciferol TAB* 1000 UNITS PO SCH (08:12)
[2018-08-24] MEDS: Ferrous Sulfate TAB* 325 MG PO SCH (08:12)
[2018-08-24 08:34] VITALS: BP 139/64
[2018-08-24] MEDS ORDERED: Aspirin EC TAB* 81 MG TAB.EC PO SCH (09:00)
[2018-08-24] MEDS ORDERED: Metoprolol Tartrate TAB* 25 MG PO SCH (09:00)
[2018-08-24 11:36] LABS: ABS Eosinophils 0.1 10^3/ul (0-0.6); ABS Lymphocytes 0.2 10^3/ul (1.0-4.8); ABS Monocytes 0.8 10^3/ul (0-0.8); ABS Neutrophils 2.7 10^3/ul (1.5-7.7); Eosinophil % 2.3 %; Lymphocyte % 6.3 %; Nucleated Red Blood Cells % 0.5
--- NOTE | 2018-08-25 00:26 | DS ---
CC: Dr. Tierney; Dr. Boucher; Dr. Lowe DISCHARGE SUMMARY: DATE OF ADMISSION: 08/23/18 DATE OF DISCHARGE: 08/24/18 PRIMARY CARE PROVIDER: Dr. Tierney. ONLINE CONTENT EDITOR: Dr. Boucher. ONCOLOGIST: Dr. Lowe. DISCHARGE DIAGNOSIS: Chest pain, acute coronary syndrome ruled out. SECONDARY DIAGNOSES: 1. Hyperlipidemia. 2. Benign prostatic hypertrophy. 3. Coronary artery disease. 4. Large B-cell lymphoma, status post small bowel resection and chemotherapy. MEDICATIONS AT THE TIME OF DISCHARGE: 1. Metoprolol tartrate 12.5 mg p.o. b.i.d. 2. Finasteride 5 mg p.o. at bedtime. 3. Ferrous sulfate 325 mg p.o. b.i.d. 4. Cholecalciferol 4000 units p.o. q.a.m. 5. Aspirin 81 mg p.o. q.a.m. 6. Tamsulosin 0.4 mg p.o. at bedtime. 7. Nitroglycerin 0.4 mg sublingual q.5 minutes p.r.n. chest pain. 8. Atorvastatin 80 mg p.o. at bedtime. 9. Acetaminophen 650 mg p.o. q.4 hours p.r.n. pain or fever. New medications: 1. Famotidine 20 mg p.o. b.i.d. 2. Maalox Plus 30 mL p.o. q.4 hours p.r.n. indigestion. HOSPITAL COURSE: Mr. Robles is a 77-year-old male with a past medical history as stated above, who pre sented to the emergency room with complaints of chest pain that woke him up around 4 in the morning o n the day of admission. For more details about his presentation, I refer you to his history and phys ical. The patient's EKG showed no acute ischemic changes and he had serial troponins that were negative. CTA of the chest showed no definite evidence of pulmonary embolus, no aortic dissection is noted. Th ere was cardiomegaly without pericardial effusion and a 0.4 cm nodule was present in the left lower l obe, but unchanged from June 2018. Transthoracic echocardiogram showed ejection fraction of 55% to 60% with normal wall motion. There i s mild dilatation of the ascending aorta at 3.8 cm. When compared to his prior echo from March, there is no significant change. With the patient's known coronary artery disease, the concern is that his chest pain could be cardiac in nature. I discussed the case with the patient's mapping supervisor (Dr. Boucher). He recommended [facility] patient to have a stress test as inpatient, but the patient states that he does not want to pursue the stress test at this point. He has just completed his last chemotherapy cycle and he states that he does not feel like he can have a stress test at this time. He would prefer to go home, recover fr om his chemotherapy, and have the stress test as outpatient. I called [facility] and talked to their in-kim nurse, Delmi Emmanuel, and arrangements will be made for the patient to have exercise nuclear medicine s tress test on 08/29/18. Until then, the patient was advised to avoid any excessive physical exertion. 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 Another possibility would be that his chest pain is GI in nature. On the day of admission, the patie nt states that he was very busy in preparation for a trip and that he had pizza. He had the episode of chest pain while laying flat and although the pain was relieved by nitro, this could be secondary to esophageal spasm. While in the hospital, he did have some similar mild chest pain with improvemen t with Maalox. Famotidine and Maalox were added to his regimen. He understands that although the pa in may be GI in nature, until he has his stress test done, the possibility of his coronary artery dis ease being the culprit is still very high. The patient states that he will travel this weekend to his granddaughter's graduation in [facility]. I had a long conversation with the patient and his about the risks of this trip, especially with his coronary artery disease and the stress test not yet been done. He was advised to avoid exce ssive physical exertion and emotions and he understands, but he states that this event is very import ant to him and he is willing to take the risk. He was advised that if he develops symptoms during [facility] trip that he should go to the nearest emergency department. He will be discharged home today to have his stress test on 08/29/18 and he will follow up with Dr. Taisha hilario after that. PHYSICAL EXAMINATION: Vital Signs: Temperature 97.7, heart rate is 81, respiratory rate is 17, oxyg en saturation is 96% on room air, blood pressure is 139/64. General: The patient is a pleasant elde rly gentleman, sitting up in a recliner, in no acute distress. CVS: Normal S1 and S2, regular rate and rhythm. Chest: Breath sounds present bilaterally with no added sounds. Neuro: He is alert and oriented x3. Able to move all 4 extremities. DIET: Heart-healthy diet. ACTIVITIES: As tolerated. DISPOSITION: To home. STATUS WHILE IN THE HOSPITAL: Observation. Please keep in mind that this is a summarized version of this patient's hospital stay. If you need m ore information, please feel free to call me at [phone] or please obtain full medical records. TIME SPENT: Approximately 50 minutes were spent to complete this discharge. [id number]/[facility] #: [id number]
== END 2018-08-24 10:13 | disposition home or self-care (01) ==
LOC: ED 06:20 → MEDTELE 08:09
PROVIDERS: ADMIT Internal Medicine; ATTEND Internal Medicine
DX: R07.9 Chest pain, unspecified (principal); E78.5 Hyperlipidemia, unspecified; D61.818 Other pancytopenia; N40.0 Benign prostatic hyperplasia without lower urinary tract symptoms; I25.10 Atherosclerotic heart disease of native coronary artery without angina pectoris; C85.10 Unspecified B-cell lymphoma, unspecified site; Z92.21 Personal history of antineoplastic chemotherapy; Z79.82 Long term (current) use of aspirin; Z79.899 Other long term (current) drug therapy; Z90.49 Acquired absence of other specified parts of digestive tract
CPT/HCPCS: 36415; 71045; 71275; 80053; 83605; 83735; 83880; 84484; 85025; 85060; 85610; 85652; 85730; 86140; 93005; 93306; 96365; 96372; 99220; 99233; 99285; A9270-GY; G0378; J1642; J1650; J3475; Q9967

== ENCOUNTER 2021-06-22 07:30 | Inpatient (IN) ==
[2021-06-30] MEDS ORDERED: Ondansetron 4 mg VIAL 2 MG/ML 2 ml VIAL IV PRN (13:34)
[2021-06-30] MEDS ORDERED: HYDROmorphone 1 MG/1 ML SYRINGE IV PRN (13:34)
[2021-06-30] MEDS ORDERED: fentaNYL 100 mcg/2 ml 50 MCG/ML VIAL IV PRN (13:34)
[2021-06-30] MEDS ORDERED: Naloxone 0.4 mg VIAL 0.4 mg/ml 1 ml VIAL IV PRN (13:34)
[2021-07-01] MEDS ORDERED: Lactated Ringers 1000 ml BAG 1,000 ML IV SCH ×2 (06:00→10:00)
[2021-07-01] MEDS ORDERED: Buffered Lidocaine 1% SYRIN 1 ml INTRADERM ONE ×2 (06:00→07:08)
[2021-07-01] MEDS ORDERED: ceFAZolin 2 GM PREMIX 2 GM/50 ML BAG ONE (06:42)
[2021-07-01 06:44] LABS: Hematocrit 44 % (42-52); Hemoglobin 15.1 g/dL (14.0-18.0); Mean Corpuscular HGB Conc 34 g/dL (31-36); Mean Corpuscular Hemoglobin 31 pg (27-31); Mean Corpuscular Volume 91 fL (80-94); Mean Platelet Volume 7.8 fL (7.4-10.4); Platelet Count 174 10^3/uL (150-450); Red Blood Count 4.85 10^6 /uL (4.18-5.48); Red Cell Distribution Width 15 % (10-15); White Blood Count 5.2 10^3/uL (3.5-10.8)
[2021-07-01] MEDS ORDERED: Propofol 10 MG/ML 20 ML BTL ONE ×4 (07:04→09:52)
[2021-07-01] MEDS ORDERED: Ondansetron 4 mg VIAL 2 MG/ML 2 ml VIAL ONE (07:04)
[2021-07-01] MEDS ORDERED: Lidocaine 2% PF 5 ML VIAL ONE ×2 (07:04→07:26)
[2021-07-01] MEDS ORDERED: Dexamethasone IV 4 MG/ML VIAL 1 ml VIAL ONE (07:04)
[2021-07-01] MEDS ORDERED: Phenylephrine IV 10 MG/ML 1 ml VIAL ONE ×2 (07:04→08:47)
[2021-07-01] MEDS ORDERED: Midazolam 2 mg/2 ml VIAL 1 mg/ml 2 ml VIAL (2 mg) ONE (07:05)
[2021-07-01] MEDS ORDERED: fentaNYL 100 mcg/2 ml 50 MCG/ML VIAL ONE (07:05)
[2021-07-01] MEDS ORDERED: Rocuronium 50 mg VIAL 10 mg/ml 5 ml VIAL (50 mg) ONE ×2 (07:24→08:29)
[2021-07-01] MEDS ORDERED: Etomidate 20 mg/10 ml 2 MG/ML 10 ml VIAL ONE (07:25)
[2021-07-01] MEDS ORDERED: Metoprolol Tartrate 5 mg VIAL 5 ml VIAL (1 mg/ml) ONE (07:41)
[2021-07-01] MEDS ORDERED: EPHEDrine (Pressors) 50 MG/ML VIAL ONE ×2 (08:26→09:23)
[2021-07-01] MEDS ORDERED: fentaNYL 250 mcg/5 ml 50 MCG/ML 5 ml VIAL (250 MCG) ONE (08:33)
[2021-07-01] MEDS ORDERED: ROPIVACAINE 5 MG/ML 30 ML BTL (0.5%) ONE (08:37)
[2021-07-01] MEDS ORDERED: Magnesium Hydroxide LIQ 30 ML UDC PO PRN (09:05)
[2021-07-01] MEDS ORDERED: Morphine 2 MG/ML SYRINGE IV PRN (09:05)
[2021-07-01] MEDS ORDERED: Ondansetron 4 mg VIAL 2 MG/ML 2 ml VIAL IV PRN (09:05)
[2021-07-01] MEDS ORDERED: Ondansetron ODT 4 mg TAB 4 MG TAB PO PRN (09:05)
[2021-07-01] MEDS ORDERED: Lactulose 30 ml UDC PO PRN (09:05)
[2021-07-01] MEDS ORDERED: Glycopyrrolate IV 0.2 MG/ML 1 ML VIAL ONE (09:09)
[2021-07-01] MEDS ORDERED: Acetaminophen IV 1 GM/100ML 100 ML IV ONE (09:20)
[2021-07-01] MEDS ORDERED: Albumin Human 5% 12.5 GM/250 ML BTL IV ONE (10:00)
[2021-07-01] MEDS ORDERED: Ondansetron ODT 4 mg TAB 4 MG TAB ONE (12:59)
[2021-07-01] MEDS ORDERED: ceFAZolin 1 GM ADVAN 1 GM in NS 0.9% 50 ML 50 ML IVPB SCH (16:00)
[2021-07-01] MEDS ORDERED: Prochlorperazine 5 mg/ml 2 ml VIAL (10 mg) IV PRN (16:08)
[2021-07-01] MEDS: ceFAZolin VIAL 1 GM in NS 0.9% 50 ML 50 ML IVPB SCH (16:29)
[2021-07-01] MEDS ORDERED: Scopolamine 1 mg/72hr PATCH TRANSDERM SCH (17:00)
[2021-07-01] MEDS: Magnesium Hydroxide LIQ 30 ML UDC PO SCH (21:43)
[2021-07-02] MEDS: ceFAZolin VIAL 1 GM in NS 0.9% 50 ML 50 ML IVPB SCH ×2 (02:22→08:37)
[2021-07-02 05:53] LABS: Hematocrit 38 % (42-52); Hemoglobin 12.8 g/dL (14.0-18.0); Mean Platelet Volume 8.1 fL (7.4-10.4); Platelet Count 153 10^3/uL (150-450)
[2021-07-02 06:09] LABS: Calcium 8.7 mg/dL (8.6-10.3); Potassium 4.3 mmol/L (3.5-5.0); eGFR CKD-EPI 62.6 (>60)
[2021-07-02] MEDS ORDERED: NS 0.9% 1000 ml BAG 1,000 ML IV ONE (08:00)
[2021-07-02] MEDS ORDERED: Vitamin THERAPEUTIC TAB PO SCH (09:00)
[2021-07-02] MEDS: Magnesium Hydroxide LIQ 30 ML UDC PO SCH (09:19)
[2021-07-02 16:28] VITALS: BP 122/68
== END 2021-07-02 17:52 | disposition home or self-care (01) | DRG 470 ==
LOC: INTOOBSV 07-01 06:17 → OBSVTOIN 07-01 06:17 → AA 07-01 06:17 → SSU 07-01 11:59
PROVIDERS: ADMIT Orthopaedic Surgery Adult Reconstructive Orthopaedic Surgery; ATTEND Orthopaedic Surgery Adult Reconstructive Orthopaedic Surgery